=== PATIENT | female | born 1940 | race Caucasian/White ===

== ENCOUNTER 2021-10-08 03:40 | Inpatient (IN) | payer MEDICARE ==
[2021-10-08 04:13] LABS: Basophils % (A) 0 %; Eosinophils % (A) 0 %; HCT 35.4 % (34.0-46.0); Lymphocytes # (A) 0.7 k/uL (1.0-4.8); Lymphocytes % (A) 4 %; MCH 30.5 pg (25.0-35.0); MCV 89.9 fL (80.0-100.0); Mean Platelet Volume 7.5; Monocytes # (A) 0.6 k/uL (0-1.0); Monocytes % (A) 4 %; Neutrophils # (A) 15.5 k/uL (1.3-7.7); Neutrophils % (A) 90 %; Platelet Count 169 k/uL (150-450); RBC 3.94 m/uL (3.80-5.40); WBC 17.2 k/uL (3.8-10.6)
--- NOTE | 2021-10-08 04:19 | ED ---
SOB HPI - General Chief Complaint: Shortness of Breath Stated Complaint: Covid+ Time Seen by Provider: 10/08/21 03:46 Source: patient, EMS Mode of arrival: EMS Limitations: no limitations - History of Present Illness MD Complaint: shortness of breath, cough Onset/Timin -: days(s) Consistency: constant Improves With: nothing Worsens With: lying flat Associated Symptoms: fever, cough, sputum production Treatments Prior to Arrival: none - Related Data Home Oxygen Therapy: No Home Medications Medication Instructions Recorded Confirmed Ascorbic Acid [Vitamin C] 500 mg PO DAILY 10/08/21 10/08/21 Ascorbic Acid/Elderberry Fruit 1 tab PO DAILY 10/08/21 10/08/21 [Elderberry-Vit C 50-100 mg Chw] Aspirin EC [Ecotrin Low Dose] 81 mg PO DAILY 10/08/21 10/08/21 Calcium Carbonate [Calcium] 600 mg PO DAILY 10/08/21 10/08/21 Cholecalciferol [Vitamin D3 (25 25 mcg PO DAILY 10/08/21 10/08/21 Mcg = 1000 Iu)] Cranberry Fruit Extract [Cranberry] 500 mg PO DAILY 10/08/21 10/08/21 Cyanocobalamin (Vitamin B-12) 1,000 mcg PO DAILY 10/08/21 10/08/21 [Vitamin B-12] Furosemide [Lasix] 20 mg PO SUMOTUTHSA 10/08/21 10/08/21 Furosemide [Lasix] 40 mg PO WEFR 10/08/21 10/08/21 L.acidoph,Paracasei, B.lactis 1 cap PO DAILY 10/08/21 10/08/21 [Probiotic] Levothyroxine Sodium [Synthroid] 125 mcg PO DAILY 10/08/21 10/08/21 Lisinopril [Prinivil] 10 mg PO DAILY 10/08/21 10/08/21 Magnesium 200 mg PO DAILY 10/08/21 10/08/21 Melatonin 3 mg PO HS 10/08/21 10/08/21 Metoprolol Succinate (ER) [Toprol 25 mg PO DAILY 10/08/21 10/08/21 XL] Mometasone/Formoterol [Dulera 100 2 puff PO RT-BID 10/08/21 10/08/21 Mcg-5 Mcg Inhaler] Multivitamin [Multivitamins Adult 1 tab PO DAILY 10/08/21 10/08/21 Gummies] [place]-3 Fatty Acids/Fish Oil [Fish 1 cap PO DAILY 10/08/21 10/08/21 Oil 1,000 mg Softgel] Omeprazole 20 mg PO DAILY 10/08/21 10/08/21 Turmeric Root Extract [Turmeric] 500 mg PO DAILY 10/08/21 10/08/21 Ubidecarenone [Co Q-10] 100 mg PO DAILY 10/08/21 10/08/21 Vitamin E 400 unit PO DAILY 10/08/21 10/08/21 Previous Rx's Medication Instructions Recorded Albuterol Inhaler [Ventolin Hfa 2 puff INHALATION RT-QID #1 gm 10/12/21 Inhaler] Levofloxacin [Levaquin] 750 mg PO Q24H #5 tab 10/12/21 Zinc Sulfate [Orazinc] 220 mg PO DAILY #15 cap 10/12/21 dexAMETHasone ORAL [Hexadrol] 6 mg PO DAILY #6 tab 10/12/21 Allergies Allergy/AdvReac Type Severity Reaction Status Date / Time clotrimazole Allergy Swelling Verified 10/08/21 07:52 Review of Systems ROS Statement: Those systems with pertinent positive or pertinent negative responses have been documented in the HPI. ROS Other: All systems not noted in ROS Statement are negative. Constitutional: Reports: fever, chills Respiratory: Reports: cough, dyspnea. Denies: hemoptysis Cardiovascular: Reports: edema. 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 Absent: scleral icterus, conjunctival injection Neck exam: Present: normal inspection Respiratory exam: Present: rhonchi. Absent: respiratory distress, wheezes, rales, stridor Cardiovascular Exam: Present: regular rate, normal rhythm, systolic murmur. Absent: diastolic murmur, rubs, gallop GI/Abdominal exam: Present: soft. Absent: distended, tenderness, guarding, rebound, rigid, mass Extremities exam: Present: normal inspection, normal capillary refill. Absent: pedal edema, calf tenderness Back exam: Present: normal inspection Neurological exam: Present: alert Skin exam: Present: warm, dry, intact, normal color. Absent: rash Course Vital Signs 10/08/21 10/08/21 10/08/21 03:41 04:00 05:00 Temperature 98.7 F Pulse Rate 97 87 89 Respiratory 20 22 20 Rate Blood Pressure 146/84 130/89 124/62 O2 Sat by Pulse 97 96 96 Oximetry 10/08/21 10/08/21 10/08/21 06:00 07:57 09:33 Temperature Pulse Rate 88 114 H Respiratory 22 18 Rate Blood Pressure 144/72 123/68 O2 Sat by Pulse 99 99 87 L Oximetry 10/08/21 10/08/21 10/08/21 09:34 12:23 14:26 Temperature 97.9 F 97.9 F Pulse Rate 88 88 Respiratory 18 18 Rate Blood Pressure 133/74 133/74 O2 Sat by Pulse 97 97 97 Oximetry Medical Decision Making - Lab Data Result diagrams: 10/12/21 06:29 10/12/21 06:29 Lab Results 10/08/21 10/08/21 10/08/21 Range/Units 04:03 04:03 04:03 WBC 17.2 H (3.8-10.6) k/uL RBC 3.94 (3.80-5.40) m/uL Hgb 12.0 (11.4-16.0) gm/dL Hct 35.4 (34.0-46.0) % MCV 89.9 (80.0-100.0) fL MCH 30.5 (25.0-35.0) pg MCHC 34.0 (31.0-37.0) g/dL RDW 14.0 (11.5-15.5) % Plt Count 169 (150-450) k/uL MPV 7.5 Neutrophils % 90 % Lymphocytes % 4 % Monocytes % 4 % Eosinophils % 0 % Basophils % 0 % Neutrophils # 15.5 H (1.3-7.7) k/uL Lymphocytes # 0.7 L (1.0-4.8) k/uL Monocytes # 0.6 (0-1.0) k/uL Eosinophils # 0.0 (0-0.7) k/uL Basophils # 0.0 (0-0.2) k/uL PT 10.0 (9.0-12.0) sec INR 0.9 (<1.2) APTT 27.4 (22.0-30.0) sec D-Dimer 0.79 H (<0.60) mg/L FEU Sodium 128 L (137-145) mmol/L Potassium 4.0 (3.5-5.1) mmol/L Chloride 92 L (98-107) mmol/L Carbon Dioxide 26 (22-30) mmol/L Anion Gap 10 mmol/L BUN 13 (7-17) mg/dL Creatinine 0.79 (0.52-1.04) mg/dL Est GFR (CKD-EPI)AfAm 81 (>60 ml/min/1.73 sqM) Est GFR (CKD-EPI)NonAf 70 (>60 ml/min/1.73 sqM) Glucose 132 H (74-99) mg/dL Plasma Lactic Acid Oscar (0.7-2.0) mmol/L Calcium 8.1 L (8.4-10.2) mg/dL Total Bilirubin 0.4 (0.2-1.3) mg/dL AST 35 (14-36) U/L ALT 26 (4-34) U/L Alkaline Phosphatase 163 H (38-126) U/L Troponin I (0.000-0.034) ng/mL Total Protein 6.5 (6.3-8.2) g/dL Albumin 3.7 (3.5-5.0) g/dL Procalcitonin (0.02-0.09) ng/mL 10/08/21 10/08/21 10/08/21 Range/Units 04:03 04:03 04:03 WBC (3.8-10.6) k/uL RBC (3.80-5.40) m/uL Hgb (11.4-16.0) gm/dL Hct (34.0-46.0) % MCV (80.0-100.0) fL MCH (25.0-35.0) pg MCHC (31.0-37.0) g/dL RDW (11.5-15.5) % Plt Count (150-450) k/uL MPV Neutrophils % % Lymphocytes % % Monocytes % % Eosinophils % % Basophils % % Neutrophils # (1.3-7.7) k/uL Lymphocytes # (1.0-4.8) k/uL Monocytes # (0-1.0) k/uL Eosinophils # (0-0.7) k/uL Basophils # (0-0.2) k/uL PT (9.0-12.0) sec INR (<1.2) APTT (22.0-30.0) sec D-Dimer (<0.60) mg/L FEU Sodium (137-145) mmol/L Potassium (3.5-5.1) mmol/L Chloride (98-107) mmol/L Carbon Dioxide (22-30) mmol/L Anion Gap mmol/L BUN (7-17) mg/dL Creatinine (0.52-1.04) mg/dL Est GFR (CKD-EPI)AfAm (>60 ml/min/1.73 sqM) Est GFR (CKD-EPI)NonAf (>60 ml/min/1.73 sqM) Glucose (74-99) mg/dL Plasma Lactic Acid Oscar 1.2 (0.7-2.0) mmol/L Calcium (8.4-10.2) mg/dL Total Bilirubin (0.2-1.3) mg/dL AST (14-36) U/L ALT (4-34) U/L Alkaline Phosphatase (38-126) U/L Troponin I <0.012 (0.000-0.034) ng/mL Total Protein (6.3-8.2) g/dL Albumin (3.5-5.0) g/dL Procalcitonin 0.83 H (0.02-0.09) ng/mL - EKG Data -: EKG Interpreted by Or EKG shows normal: sinus rhythm (Rate 95 bpm), axis (Normal), intervals (Normal), QRS complexes (Normal), ST-T waves (Normal) Rate: normal Disposition Clinical Impression: Pneumonia due to COVID-19 virus, Hyponatremia Disposition: ADMITTED IP TO THIS HOSP Condition: Fair Is patient prescribed a controlled substance at d/c from ED?: No
--- NOTE | 2021-10-08 04:21 | XR ---
EXAMINATION TYPE: XR chest 1V portable DATE OF EXAM: 10/08/2021 COMPARISON: NONE HISTORY: Short of breath TECHNIQUE: Single view FINDINGS: There is some coarse interstitial infiltrate in both lung [place] predominantly in the perih ilar region. There is right central venous catheter with tip in the superior vena cava. There is mild blunting right costophrenic angle. IMPRESSION: Bilateral perihilar pulmonary infiltrates. No heart failure. There is probably some pulmo nary fibrosis. Acute pneumonia left lower lobe is possible.
[2021-10-08 04:24] LABS: Albumin 3.7 g/dL (3.5-5.0); Calcium 8.1 mg/dL (8.4-10.2); Total Bilirubin 0.4 mg/dL (0.2-1.3); Total Protein 6.5 g/dL (6.3-8.2)
[2021-10-08 04:38] LABS: INR 0.9 (<1.2); Partial Thromboplastin Time 27.4 sec (22.0-30.0)
[2021-10-08] MEDS ORDERED: ALBUTEROL NEBULIZED 2.5 MG/3 ML INHALATION PRN (05:01)
[2021-10-08] MEDS ORDERED: PNEUMONIA PROTOCOL UTILIZED 1 EACH MISC PO PRN (05:01)
[2021-10-08] MEDS: SODIUM CHLORIDE 0.9% 1,000 ML IV SCH (05:30)
[2021-10-08] MEDS ORDERED: dexAMETHasone 2 MG TAB PO STA (05:53)
[2021-10-08] MEDS: ALBUTEROL HFA INHALER INHALATION SCH ×4 (07:53→19:39)
[2021-10-08] MEDS ORDERED: HEPARIN SODIUM,PORCINE/PF 5,000 UNIT/0.5 ML SYRINGE SQ SCH (09:00)
--- NOTE | 2021-10-08 09:53 | P.CNPUL ---
History of Present Illness Consult date: 10/08/21 Requesting physician: Tessie Sams Reason for consult: pneumonia Chief complaint: Shortness of breath and cough History of present illness: This is an 81-year-old female with history of multiple medical problems including bronchogenic carcinoma, previous lobectomy done in over 3 years ago at [facility], history of thyroid cancer, patient is not vaccinated against COVID-19 infection, patient presented to the ER with 8 days history of cough, nasal congestion, no sore throat, no nausea no vomiting no abdominal pain no diarrhea. Patient seen in the ER chest x-ray showed potential or possible perihilar infiltrates with underlying interstitial lung disease, her initial O2 saturation upon arrival was 87%, however later on her O2 sat should was noted to be in the low 90s on room air. Patient was given remdesivir, placed on the COVID-19 cocktail/protocol, admitted and this consult was initiated. Review of Systems Constitutional: Reports: fever, chills Respiratory: Reports: cough, dyspnea. Denies: hemoptysis Cardiovascular: Reports: edema. 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, thyroid cancer history History of Any Multi-Drug Resistant Organisms: None Reported Past Surgical History: Joint Replacement Past Psychological History: No Psychological Hx Reported Smoking Status: Never smoker Past Alcohol Use History: None Reported Past Drug Use History: None Reported Medications and Allergies Home Medications Medication Instructions Recorded Confirmed Type Ascorbic Acid [Vitamin C] 500 mg PO DAILY 10/08/21 10/08/21 History Ascorbic Acid/Elderberry Fruit 1 tab PO DAILY 10/08/21 10/08/21 History [Elderberry-Vit C 50-100 mg [facility]] Aspirin EC [Ecotrin Low Dose] 81 mg PO DAILY 10/08/21 10/08/21 History Calcium Carbonate [Calcium] 600 mg PO DAILY 10/08/21 10/08/21 History Cholecalciferol [Vitamin D3 (25 25 mcg PO DAILY 10/08/21 10/08/21 History Mcg = 1000 Iu)] Cranberry Fruit Extract [Cranberry] 500 mg PO DAILY 10/08/21 10/08/21 History Cyanocobalamin (Vitamin B-12) 1,000 mcg PO DAILY 10/08/21 10/08/21 History [Vitamin B-12] Furosemide [Lasix] 20 mg PO SUMOTUTHSA 10/08/21 10/08/21 History Furosemide [Lasix] 40 mg PO WEFR 10/08/21 10/08/21 History L.acidoph,Paracasei, B.lactis 1 cap PO DAILY 10/08/21 10/08/21 History [Probiotic] Levothyroxine Sodium [Synthroid] 125 mcg PO DAILY 10/08/21 10/08/21 History Lisinopril [Prinivil] 10 mg PO DAILY 10/08/21 10/08/21 History Magnesium 200 mg PO DAILY 10/08/21 10/08/21 History Melatonin 3 mg PO HS 10/08/21 10/08/21 History Metoprolol Succinate (ER) [Toprol 25 mg PO DAILY 10/08/21 10/08/21 History Xl] Mometasone/Formoterol [Dulera 100 2 puff PO RT-BID 10/08/21 10/08/21 History Mcg-5 Mcg Inhaler] Multivitamin [Multivitamins Adult 1 tab PO DAILY 10/08/21 10/08/21 History Gummies] [place]-3 Fatty Acids/Fish Oil [Fish 1 cap PO DAILY 10/08/21 10/08/21 History Oil 1,000 mg Softgel] Omeprazole 20 mg PO DAILY 10/08/21 10/08/21 History Turmeric Root Extract [Turmeric] 500 mg PO DAILY 10/08/21 10/08/21 History Ubidecarenone [Co Q-10] 100 mg PO DAILY 10/08/21 10/08/21 History Vitamin E 400 unit PO DAILY 10/08/21 10/08/21 History Zinc 50 mg PO DAILY 10/08/21 10/08/21 History Allergies Allergy/AdvReac Type Severity Reaction Status Date / Time clotrimazole Allergy Swelling Verified 10/08/21 07:52 Physical Exam Vitals: Vital Signs Temp Pulse Resp BP Pulse Ox 10/08/21 09:34 97 10/08/21 09:33 114 H 18 123/68 87 L 10/08/21 07:57 99 10/08/21 06:00 88 22 144/72 99 10/08/21 05:00 89 20 124/62 96 10/08/21 04:00 87 22 130/89 96 10/08/21 03:41 98.7 F 97 20 146/84 97 Intake and Output 10/07/21 10/08/21 10/08/21 22:59 06:59 14:59 Other: Weight 86.183 kg General appearance: Revealed an 81-year-old female in no distress. Head exam: atraumatic, normocephalic Eye exam:normal appearance. Absent: scleral icterus, conjunctival injection Neck exam: No neck masses no JVD no stridor. Respiratory exam: The medical chest expansion, crackles at the bases. Cardiovascular Exam: Normal S1 and S2, no S3 gallop. No murmur. GI/Abdominal exam: Soft nontender no megaly no rebound no guarding. Extremities exam: No clubbing edema or cyanosis. Back exam: Present: normal inspection Neurological exam: Oriented 3 no gross focal deficits. Skin exam: No rashes noted Results - Laboratory Findings CBC and BMP: 10/08/21 04:03 10/08/21 04:03 PT/INR, D-dimer PT 10.0 sec (9.0-12.0) 10/08/21 04:03 INR 0.9 (<1.2) 10/08/21 04:03 D-Dimer 0.79 mg/L FEU (<0.60) H 10/08/21 04:03 Abnormal lab findings: Abnormal Labs 10/08/21 10/08/21 10/08/21 04:03 04:03 04:03 WBC 17.2 H Neutrophils # 15.5 H Lymphocytes # 0.7 L D-Dimer 0.79 H Sodium 128 L Chloride 92 L Glucose 132 H Calcium 8.1 L Alkaline Phosphatase 163 H Procalcitonin 10/08/21 04:03 WBC Neutrophils # Lymphocytes # D-Dimer Sodium Chloride Glucose Calcium Alkaline Phosphatase Procalcitonin 0.83 H - Diagnostic Findings Chest x-ray: image reviewed (As noted in HPI.) Assessment and Plan Assessment: Impression: Acute hypoxic respiratory failure secondary to COVID-19 pneumonia Hypovolemic hyponatremia Leukocytosis exact etiology is not clear. However the patient has elevated pro calcitonin and I will empirically start the patient on antibiotics. Underlying bacterial infection/pneumonia is not entirely ruled out. History of bronchogenic carcinoma History of degenerative joint disease. Recommendation: Oxygen and titrate accordingly. Droplet isolation. Continue present supportive care measures. Start patient on remdesivir Empiric antibiotics in the form of Rocephin 1 g every 24 hours. Daily check of inflammatory markers We'll continue to follow. Time with Patient: Greater than 30
[2021-10-08] MEDS: dexAMETHasone 2 MG TAB PO SCH (10:21)
[2021-10-08] MEDS: CHOLECALCIFEROL 125 MCG (5000 IU) TABLET PO SCH (10:22)
[2021-10-08] MEDS ORDERED: REMDESIVIR 200 MG in SODIUM CHLORIDE 0.9% 250 ML IVPB ONE (12:00)
[2021-10-08] MEDS ORDERED: ACETAMINOPHEN TAB 500 MG TAB PO PRN (15:43)
[2021-10-08] MEDS ORDERED: HYDROcodone/APAP 5-325MG 1 EACH TAB PO PRN (15:43)
[2021-10-08] MEDS ORDERED: ALPRAZolam 0.25 MG TAB PO PRN (15:43)
[2021-10-08] MEDS: FUROSEMIDE 20 MG TAB PO SCH (16:10)
[2021-10-08] MEDS: ZINC SULFATE 220 MG CAP PO SCH (16:10)
[2021-10-08] MEDS: ENOXAPARIN 40 MG/0.4 ML SYRINGE SQ SCH (16:11)
--- NOTE | 2021-10-08 16:58 | CT ---
EXAMINATION TYPE: CT angio chest DATE OF EXAM: 10/08/2021 COMPARISON: None HISTORY: PE. Covid + Pt not able to follow breathing commands CT DLP: 486.6 mGycm Automated exposure control for dose reduction was used. CONTRAST: Performed with IV Contrast, patient injected with 100 mL of Isovue 370. Images obtained from the thoracic inlet to the diaphragm with IV contrast. There are 3-D post process ed images. There is patchy bilateral pulmonary airspace infiltrates. This is more in the left lower lobe and sup erior segment right lower lobe. There is no mediastinal adenopathy. There are no hilar masses. There is normal contrast opacification of the pulmonary arteries. There are no filling defects. Thoracic ao rta is intact. There is no aneurysm or dissection. There is some spurring in the thoracic spine. There is no thoracic compression fracture. Sternum is intact. Upper abdominal soft tissues are intact . IMPRESSION: No evidence of pulmonary embolism. Patchy bilateral pulmonary infiltrates consistent with pneumonia.
--- NOTE | 2021-10-08 17:17 | HP ---
HISTORY AND PHYSICAL DATE OF SERVICE: 10/08/2021 CHIEF COMPLAINT: Shortness of breath. HISTORY OF PRESENT ILLNESS: This 81-year-old woman with a past medical history of hypertension, history of tumor removed the left lung, history of thyroid cancer, history of joint replacement, being followed by Dr. Santiago in the outpatient setting, was not feeling well over the past several days. The patient has not taken a COVID vaccine. The patient apparently had contact with a COVID infection in her roommate. The patient was symptomatic for the last 8 days with cough, sputum and some nasal congestion. The pulse ox was found to be low at 87% on room air and she had to have supplemental oxygen. Initially the monoclonal antibody was contemplated, but apparently the patient does not meet criteria, so Dr. Virk saw the patient and remdesivir was initiated. A chest x-ray was done in the ER which I reviewed personally. It showed evidence of bilateral pneumonia and some atelectasis on the on the right side, possibly secondary to chronic changes because of the surgery as well. The patient was admitted for further evaluation and treatment. There is no history of any fever, rigors or chills at this time. Labs show that white count is elevated, sodium is 128. Procalcitonin is also elevated. The patient also has hyponatremia; sodium 128. D-dimer was elevated at 0.79. PAST MEDICAL HISTORY: History of lung cancer with surgery, resection, thyroid cancer, history of hypertension, knee replacement, DJD. HOME MEDICATIONS: Zinc, vitamin E, coenzyme Q, turmeric, fish oil, multivitamin, Dulera, Toprol-XL, melatonin, magnesium, Prinivil, Synthroid, probiotic, Lasix, vitamin B12, cranberry, calcium. Doses and other medications also noted. ALLERGIES: CLOTRIMAZOLE. FAMILY HISTORY: No history of heart disease or strokes in the family. SOCIAL HISTORY: No history of smoking. No history of alcohol intake. REVIEW OF SYSTEMS: ENT: No diminished hearing. No diminished vision. CARDIOVASCULAR SYSTEM: As mentioned earlier. RESPIRATORY SYSTEM: As mentioned earlier. GI: No nausea, vomiting, diarrhea. : No dysuria. NERVOUS SYSTEM: No numbness, weakness. ALLERGY/IMMUNOLOGY: No asthma or hay fever. MUSCULOSKELETAL: As mentioned earlier. HEMATOLOGY/ONCOLOGY: As mentioned earlier. ENDOCRINE: As mentioned earlier. CONSTITUTIONAL: As mentioned earlier. DERMATOLOGY: Negative. RHEUMATOLOGY: Negative. PSYCHIATRY: As mentioned earlier. PHYSICAL EXAMINATION: Alert and oriented x3. Pulse 88, blood pressure 130/74, respiration 18, temperature 97.9, pulse ox 97% on room air; 87% on room air was the initial baseline. HEENT: Conjunctivae normal. Oral mucosa moist. NECK: No jugular venous distention. No carotid bruit. No lymph node enlargement. CARDIOVASCULAR: S1, S2 muffled. RESPIRATION: Breath sounds diminished at the bases. A few scattered rhonchi and crackles. ABDOMEN: Soft, nontender. No mass palpable. LEGS: No edema. No swelling. NERVOUS SYSTEM: Higher functions as mentioned earlier. Moves all 4 limbs. No focal motor or sensory deficit. LYMPHATICS: No lymph node palpable in neck, axillae or groin. SKIN: No ulcer, rash, bleeding. JOINTS: No active deforming arthropathy. LABS: WBC 17.2, hemoglobin 12, sodium 128, creatinine is 4. D-dimer is 0.79, glucose 132. ASSESSMENT: 1. Acute COVID-19 infection with acute COVID-19 bilateral interstitial pneumonia with acute hypoxic respiratory failure, present on admission. 2. Possible acute bronchitis. 3. Increased white count. 4. Elevated D-dimer at 0.79. 5. Hyponatremia. 6. Increased random glucose. 7. Elevated alkaline phosphatase. 8. Elevated procalcitonin. 9. History of right upper lobe bronchogenic cancer, status post lobectomy 3 years ago at [facility]. 10.Hypertension. 11.History of thyroid cancer. 12.History of degenerative joint disease. 13.Right total knee joint replacement. 14.Obesity with body mass index of 33.7. 15.FULL CODE. RECOMMENDATIONS AND DISCUSSION: In this 81-year-old woman who presented with multiple complex medical issues, we will monitor the patient closely, continue the current medications, continue symptomatic treatment. Otherwise at this time I recommend remdesivir. I would also recommend a short course of antibiotics and IV steroids and Lovenox. Also recommend a CT angio of the chest and bronchodilators. Overall prognosis is guarded because of multiple complex medical issues. Would also recommend the usual treatment of COVID-19. Further recommendations to follow. A copy of this dictation is being forwarded to Dr. Santiago, who is the primary physician. MMODL / IJN: [id number] /
[2021-10-08] MEDS: MELATONIN 3 MG TABLET PO SCH (22:33)
[2021-10-08] MEDS: TEMAZEPAM 15 MG CAP PO PRN (22:34)
[2021-10-09] MEDS: SODIUM CHLORIDE 0.9% 1,000 ML IV SCH ×2 (06:09→22:54)
[2021-10-09] MEDS: SYMBICORT 80-4.5 MCG INHALER INHALATION SCH ×3 (06:09→22:53)
[2021-10-09] MEDS: ALBUTEROL HFA INHALER INHALATION SCH ×4 (07:07→19:11)
[2021-10-09] MEDS: METOPROLOL SUCCINATE (ER) 25 MG TAB.ER.24H PO SCH (09:25)
[2021-10-09] MEDS: ENOXAPARIN 40 MG/0.4 ML SYRINGE SQ SCH (09:25)
[2021-10-09] MEDS: CALCIUM CARBONATE 500 MG CHEWABLE PO SCH (09:26)
[2021-10-09] MEDS: MULTIVITAMINS, THERA 1 EACH TAB PO SCH (09:26)
[2021-10-09] MEDS: CHOLECALCIFEROL 125 MCG (5000 IU) TABLET PO SCH (09:26)
[2021-10-09] MEDS: ASPIRIN 81 MG PO SCH (09:26)
[2021-10-09] MEDS: PANTOPRAZOLE 40 MG TABLET PO SCH (09:26)
[2021-10-09] MEDS: CYANOCOBALAMIN 500 MCG TAB PO SCH (09:26)
[2021-10-09] MEDS: VITAMIN E (DL,TOCOPHERYL ACET) 400 UNIT (180 MG) CAP PO SCH (09:27)
[2021-10-09] MEDS: MAGNESIUM OXIDE 400 MG TAB PO SCH (09:27)
[2021-10-09] MEDS: lisinopriL 10 MG TAB PO SCH (09:28)
[2021-10-09] MEDS: ZINC SULFATE 220 MG CAP PO SCH (09:29)
[2021-10-09] MEDS: ASCORBIC ACID 500 MG TAB PO SCH (09:29)
[2021-10-09] MEDS: AZITHROMYCIN 500 MG TAB PO SCH (09:29)
[2021-10-09] MEDS: LEVOTHYROXINE 125 MCG TAB PO SCH (09:29)
[2021-10-09] MEDS: FUROSEMIDE 20 MG TAB PO SCH (09:29)
[2021-10-09] MEDS: LACTOBACILLUS ACIDOPH & BULGAR 1 EACH PACKET PO SCH (09:29)
[2021-10-09] MEDS: dexAMETHasone 2 MG TAB PO SCH (09:34)
[2021-10-09] MEDS: REMDESIVIR 100 MG in SODIUM CHLORIDE 0.9% 250 ML IVPB SCH (11:38)
--- NOTE | 2021-10-09 15:04 | P.PN ---
Subjective Progress Note Date: 10/09/21 Principal diagnosis: CoVID 19 pneumonia This is an 81-year-old female with history of multiple medical problems including bronchogenic carcinoma, previous lobectomy done in over 3 years ago at [facility], history of thyroid cancer, patient is not vaccinated against COVID-19 infection, patient presented to the ER with 8 days history of cough, nasal congestion, no sore throat, no nausea no vomiting no abdominal pain no diarrhea. Patient seen in the ER chest x-ray showed potential or possible perihilar infiltrates with underlying interstitial lung disease, her initial O2 saturation upon arrival was 87%, however later on her O2 sat should was noted to be in the low 90s on room air. Patient was given remdesivir, placed on the COVID-19 cocktail/protocol, admitted and this consult was initiated. The patient is seen today 10/09/2021 in follow-up on the regular medical floor. She is currently sitting up at the bedside. Awake and alert in no acute distress. Denies any worsening shortness of breath, cough or congestion. She is maintaining O2 saturations in the high 90s on 2 L/m per nasal cannula. CT angiogram ruled out pulmonary embolism. There is evidence of patchy bilateral pulmonary infiltrates consistent with COVID-19 pneumonia. No new labs today. This is day #2 of Remdesivir. Remains on Decadron, Lovenox, vitamin supplements. She is on antibiotics in form of ceftriaxone and azithromycin. Pro calcitonin 0.83. Objective - Vital Signs Vital signs: Vital Signs Temp 97.6 F 10/09/21 10:00 Pulse 89 10/09/21 10:00 Resp 16 10/09/21 10:00 BP 133/70 10/09/21 10:00 Pulse Ox 99 10/09/21 10:00 Intake & Output 10/08/21 10/09/21 10/09/21 18:59 06:59 18:59 Intake Total 50 480 Balance 50 480 Weight 86.183 kg Intake: Intake, IV Titration 50 Amount cefTRIAXone 1 gm In 50 Sodium Chloride 0.9% 50 ml @ 100 mls/hr IVPB Q24HR [facility] Rx#:[id number] Oral 480 - Exam GENERAL EXAM: Alert, pleasant 80-year-old female patient, on 2 L nasal cannula comfortable in no apparent distress. HEAD: Normocephalic. EYES: Normal reaction of pupils, equal size. NOSE: Clear with pink turbinates. THROAT: No erythema or exudates. NECK: No masses, no JVD. CHEST: No chest wall deformity. LUNGS: Equal air entry with crackles in the bilateral bases. CVS: S1 and S2 normal with no audible murmur, regular rhythm. ABDOMEN: No hepatosplenomegaly, normal bowel sounds, no guarding or rigidity. SPINE: No scoliosis or deformity SKIN: No rashes CENTRAL NERVOUS SYSTEM: No focal deficits, tone is normal in all 4 extremities. EXTREMITIES: There is no peripheral edema. No clubbing, no cyanosis. Peripheral pulses are intact. - Labs CBC & Chem 7: 10/08/21 04:03 10/08/21 04:03 Labs: Microbiology - Last 24 Hours (Table) 10/08/21 05:16 Blood Culture Gram Stain - Preliminary Blood Blood Culture - Preliminary Staphylococcus epidermidis 10/08/21 05:00 Blood Culture - Preliminary Blood No Growth after 24 hours 10/08/21 05:16 Blood Culture - Final Blood Assessment and Plan Assessment: 1 Acute hypoxemic respiratory failure secondary to acute COVID-19 pneumonia. Not vaccinated. Initiated on Remdesivir. 2 Elevated pro calcitonin with possible underlying bacterial pneumonia as well 3 Hyponatremia suspect hypovlemia 4 History of bronchogenic carcinoma with previous lobectomy over 3 years ago at [facility] 5 Hypothyroidism 6 Hypertension Plan: The patient was seen and evaluated by Dr. Virk Continue Remdesivir, Decadron, Lovenox, vitamin supplements Titrate down the FiO2 as tolerated Possible discharge in the a.m. We will continue to follow I, the cosigning physician, performed a history & physical examination of the patient. Lungs sounds with crackles in the bilateral bases. Maintaining good O2 saturations in the 90s on 2 L/m per nasal cannula. I discussed the assessment and plan of care with my nurse practitioner, Annabel Aguilar. I attest to the above note as dictated by her.
--- NOTE | 2021-10-09 19:29 | PN ---
PROGRESS NOTE DATE OF SERVICE: 10/09/2021 This 80-year-old woman who was admitted with acute Covid 19 Covid 19 and bilateral interstitial pneumonia is being closely monitored. Dr. Virk is following the patient closely. The patient has some mild hypoxia. The patient was started on Remdesivir also. No chest pain. No palpitation. CT angio of the chest which I reviewed personally showed no evidence of any pulmonary embolism, but however, showed bilateral interstitial pneumonia highly suggestive of Covid 19 pneumonia. Mostly predominant in both lower lobes. PAST MEDICAL HISTORY: Reviewed. REVIEW OF SYSTEMS: Cardiovascular: No angina. Respiratory: As mentioned. GI as mentioned earlier. : No dysuria. Nervous system: No numbness, weakness. CURRENT MEDICATIONS: Reviewed and include: Tylenol, [place], Ventolin. Xanax, vitamin C, aspirin, Zithromax, doses reviewed. PHYSICAL EXAMINATION: Patient is alert, oriented times three. Pulse 80, blood pressure 132/80, respiration 18, temperature 98.2, pulse ox 98% on room air. HEENT: Conjunctivae normal. NECK: No JVD. CARDIOVASCULAR: S1, S2 muffled. RESPIRATORY: Breath sounds diminished in the bases. A few scattered rhonchi. ABDOMEN: Soft. Nontender. NERVOUS SYSTEM: No focal deficits. LABORATORY DATA: Microbiology blood cultures, Staph epidermidis. Otherwise other labs are WBC 17.2, sodium 130, potassium 4. Procalcitonin 0.83. ASSESSMENT: 1. Acute Covid 19 infection with acute Covid 19interstitial pneumonia with acute hypoxic respiratory failure present on admission. 2. Possible acute bronchitis suppurative .. 3. Elevated procalcitonin and elevated WBC. 4. Elevated D-dimer at 0.79. 5. Hyponatremia. 6. Increased random glucose. 7. Elevated alkaline phosphatase. 8. Elevated procalcitonin. 9. History of right upper lobe bronchogenic cancer, status post lobectomy 3 years ago at [facility]. 10.Hypertension. 11.History of thyroid cancer. 12.History of degenerative joint disease. 13.Right total knee replacement. 14.Obesity with body mass index of 33.7. 15.FULL CODE. RECOMMENDATIONS AND DISCUSSION: Recommend to continue current medications, continue to monitor, symptomatic treatment. Otherwise, at this time, I recommend continue with Remdesivir, continue bronchodilators. Continue empiric antibiotics. We will repeat cultures and repeat the labs. Closely follow with Dr. Virk. Guarded prognosis. Further recommendations to follow. MMODL / IJN: [id number] / MARCK
[2021-10-09] MEDS: MELATONIN 3 MG TABLET PO SCH (21:56)
[2021-10-09] MEDS: TEMAZEPAM 15 MG CAP PO PRN (22:00)
[2021-10-10] MEDS ORDERED: BENZOCAINE/MENTHOL LOZENG 1 EACH LOZENGE MUCOUS MEM PRN (06:14)
--- NOTE | 2021-10-10 07:49 | XR ---
EXAMINATION TYPE: XR chest 1V portable DATE OF EXAM: 10/10/2021 Comparison: 10/08/2021 Clinical History: 81-year-old female CoVID pneumonia Findings: Right anterior chest wall injection port with catheter tip at the lower SVC. Calcified lower right pa ratracheal lymph node and right hilar lymph nodes. Surgical change at the right hilum with architectu ral distortion. Focal airspace opacity at the left lower lung persists. 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 Impression: Postsurgical changes right hilum and evidence of prior granulomatous disease. Continued left lower sunil ng pneumonia.
[2021-10-10] MEDS: ALBUTEROL HFA INHALER INHALATION SCH ×4 (08:25→21:07)
[2021-10-10] MEDS: FUROSEMIDE 20 MG TAB PO SCH (08:29)
[2021-10-10] MEDS: ASCORBIC ACID 500 MG TAB PO SCH (08:29)
[2021-10-10] MEDS: METOPROLOL SUCCINATE (ER) 25 MG TAB.ER.24H PO SCH (08:29)
[2021-10-10] MEDS: LACTOBACILLUS ACIDOPH & BULGAR 1 EACH PACKET PO SCH (08:29)
[2021-10-10] MEDS: ASPIRIN 81 MG PO SCH (08:29)
[2021-10-10] MEDS: LEVOTHYROXINE 125 MCG TAB PO SCH (08:30)
[2021-10-10] MEDS: CALCIUM CARBONATE 500 MG CHEWABLE PO SCH (08:30)
[2021-10-10] MEDS: AZITHROMYCIN 500 MG TAB PO SCH (08:30)
[2021-10-10] MEDS: CYANOCOBALAMIN 500 MCG TAB PO SCH (08:30)
[2021-10-10] MEDS: MAGNESIUM OXIDE 400 MG TAB PO SCH (08:30)
[2021-10-10] MEDS: VITAMIN E (DL,TOCOPHERYL ACET) 400 UNIT (180 MG) CAP PO SCH (08:30)
[2021-10-10] MEDS: CHOLECALCIFEROL 125 MCG (5000 IU) TABLET PO SCH (08:30)
[2021-10-10] MEDS: ZINC SULFATE 220 MG CAP PO SCH (08:30)
[2021-10-10] MEDS: PANTOPRAZOLE 40 MG TABLET PO SCH (08:30)
[2021-10-10] MEDS: dexAMETHasone 2 MG TAB PO SCH (08:30)
[2021-10-10] MEDS: lisinopriL 10 MG TAB PO SCH (08:30)
[2021-10-10] MEDS: MULTIVITAMINS, THERA 1 EACH TAB PO SCH (08:31)
[2021-10-10] MEDS: ENOXAPARIN 40 MG/0.4 ML SYRINGE SQ SCH (08:31)
[2021-10-10 09:33] LABS: Basophils % (A) 0 %; Eosinophils % (A) 0 %; HCT 37.4 % (34.0-46.0); HGB 12.2 gm/dL (11.4-16.0); Lymphocytes % (A) 8 %; MCH 30.5 pg (25.0-35.0); MCHC 32.7 g/dL (31.0-37.0); MCV 93.2 fL (80.0-100.0); Mean Platelet Volume 7.4; Monocytes # (A) 0.3 k/uL (0-1.0); Monocytes % (A) 3 %; Neutrophils # (A) 10.7 k/uL (1.3-7.7); Neutrophils % (A) 86 %; Platelet Count 260 k/uL (150-450); RBC 4.01 m/uL (3.80-5.40); WBC 12.4 k/uL (3.8-10.6)
[2021-10-10 10:42] LABS: Chloride 98 mmol/L (98-107)
[2021-10-10 10:46] LABS: ALT 20 U/L (4-34); AST 24 U/L (14-36); African American GFR (CKD) >90 (>60 ml/min/1.73 sqM); Albumin 3.5 g/dL (3.5-5.0); Albumin/Globulin Ratio 1.1; Alkaline Phosphatase 137 U/L (38-126); Anion Gap 8 mmol/L; Blood Urea Nitrogen 23 mg/dL (7-17); Calcium 8.5 mg/dL (8.4-10.2); Carbon Dioxide 28 mmol/L (22-30); Globulin 3.1 g/dL; Glucose 96 mg/dL (74-99); LDH 588 U/L (313-618); Non-African American GFR(CKD) 78 (>60 ml/min/1.73 sqM); Potassium 4.4 mmol/L (3.5-5.1); Sodium 134 mmol/L (137-145); Total Bilirubin 0.3 mg/dL (0.2-1.3); Total Protein 6.6 g/dL (6.3-8.2)
[2021-10-10 11:09] LABS: C Reactive Protein 15.5 mg/dL (<1.0)
[2021-10-10] MEDS: REMDESIVIR 100 MG in SODIUM CHLORIDE 0.9% 250 ML IVPB SCH (12:04)
--- NOTE | 2021-10-10 13:46 | P.PN ---
Subjective Progress Note Date: 10/10/21 Principal diagnosis: Shortness of breath, cough This is an 81-year-old female with history of multiple medical problems including bronchogenic carcinoma, previous lobectomy done in over 3 years ago at [facility], history of thyroid cancer, patient is not vaccinated agai nst COVID-19 infection, patient presented to the ER with 8 days history of cough, nasal congestion, no sore throat, no nausea no vomiting no abdominal pain no diarrhea. Patient seen in the ER chest x-ray showed potential or possible perihilar infiltrates with underlying interstitial lung disease, her initial O2 saturation upon arrival was 87%, however later on her O2 sat should was noted to be in the low 90s on room air. Patient was given remdesivir, placed on the COVID-19 cocktail/protocol, admitted and this consult was initiated. The patient is seen today 10/09/2021 in follow-up on the regular medical floor. She is currently sitting up at the bedside. Awake and alert in no acute distr ess. Denies any worsening shortness of breath, cough or congestion. She is maintaining O2 saturations in the high 90s on 2 L/m per nasal cannula. CT angiogram ruled out pulmonary embolism. There is evidence of patchy bilateral pulmonary infiltrates consistent with COVID-19 pneumonia. No new labs today. This is day #2 of Remdesivir. Remains on Decadron, Lovenox, vitamin supplements. She is on antibiotics in form of ceftriaxone and azithromycin. Pro calcitonin 0.83. On 10/10/2021 patient seen in follow-up for medical surgical floor, she is resting comfortably in bed, she is on room air pulse ox is 98%, afebrile, she does still cough, at times she is able to bring up some phlegm. She was started on Remdesivir, and today is day 2 of treatment. He remains on Decadron, she has had no fever or chills, no complaints of chest discomfort, breathing comfortably. Patient is on Rocephin for empiric antibiotic coverage, today's labs have been reviewed, white blood cell count is improving, is down to 12.4, hemoglobin is 12.2, serum sodium is improved and is up to 134, the rest electrol ytes were unremarkable, B1 is 23 creatinine 0.72. CRP was 15.5, and LDH was within normal limits at 588, troponin was negative at less than 0.012, and Pro calcitonin level on admission was elevated at 0.83, suggesting possibility of underlying bacterial infection possibly pneumonia, CT angiogram of the chest showed no evidence of pulmonary embolism, and patchy bilateral pulmonary infiltrates consistent with pneumonia. Pleural chest x-ray today shows surgical changes in the right hilum and evidence of prior granulomatous disease, and continued left lower lung pneumonia. Objective - Vital Signs Vital signs: Vital Signs Temp 97.9 F 10/10/21 08:00 Pulse 67 10/10/21 08:00 Resp 18 10/10/21 08:00 BP 127/70 10/10/21 08:00 Pulse Ox 98 10/10/21 08:00 Intake & Output 10/09/21 10/10/21 10/10/21 18:59 06:59 18:59 Intake Total 300 960 Balance 300 960 Intake: Intake, IV Titration 300 Amount Remdesivir 100 mg In 250 Sodium Chloride 0.9% 250 ml @ 250 mls/hr IVPB DAILY@1200 [facility] Rx#: [id number] cefTRIAXone 1 gm In 50 Sodium Chloride 0.9% 50 ml @ 100 mls/hr IVPB Q24HR [facility] Rx#:[id number] Oral 960 - Exam GENERAL EXAM: Alert, very pleasant, 81-year-old white female, on room air pulse ox of 98% comfortable in no apparent distress. HEAD: Normocephalic/atraumatic. EYES: Normal reaction of pupils, equal size. Conjunctiva pink, sclera white. NOSE: Clear with pink turbinates. THROAT: No erythema or exudates. NECK: No masses, no JVD, no thyroid enlargement, no adenopathy. CHEST: No chest wall deformity. Symmetrical expansion. LUNGS: Equal air entry with no crackles, wheeze, rhonchi or dullness. CVS: Regular rate and rhythm, normal S1 and S2, no gallops, no murmurs, no rubs ABDOMEN: Soft, nontender. No hepatosplenomegaly, normal bowel sounds, no guarding or rigidity. EXTREMITIES: No clubbing, no edema, no cyanosis, 2+ pulses and upper and lower extremities. MUSCULOSKELETAL: Muscle strength and tone normal. SPINE: No scoliosis or deformity SKIN: No rashes CENTRAL NERVOUS SYSTEM: Alert and oriented -3. No focal deficits, tone is normal in all 4 extremities. PSYCHIATRIC: Alert and oriented -3. Appropriate affect. Intact judgment and insight. - Labs CBC & Chem 7: 10/10/21 08:53 10/10/21 08:53 Labs: Abnormal Lab Results - Last 24 Hours (Table) 10/10/21 10/10/21 Range/Units 08:53 08:53 WBC 12.4 H (3.8-10.6) k/uL Neutrophils # 10.7 H (1.3-7.7) k/uL Sodium 134 L (137-145) mmol/L BUN 23 H (7-17) mg/dL Alkaline Phosphatase 137 H (38-126) U/L C-Reactive Protein 15.5 H (<1.0) mg/dL Microbiology - Last 24 Hours (Table) 10/08/21 05:00 Blood Culture - Preliminary Blood No Growth after 48 hours 10/08/21 05:16 Blood Culture Gram Stain - Preliminary Blood Blood Culture - Preliminary Staphylococcus epidermidis Assessment and Plan Plan: Assessment: #1. Acute hypoxic respiratory failure multifactorial, related to community acquired pneumonia, and acute COVID-19 infection. Patient is not vaccinated against COVID-19, was initiated on Remdesivir on 10/09/2021, however she is on room air, with stable oxygen sats, and Remdesivir will be discontinued on 10/10/2021 and patient will be placed on Levaquin for acute left lower lung pneumonia #2. Elevated d-dimer, with no CT angiogram evidence of pulmonary embolism #3. Hyponatremia, possibly related to viral pneumonia and hypovolemia and dehydration, improved #4. History of bronchogenic carcinoma with previous history of lobectomy done 3 years ago at [facility] #5. History of thyroid cancer #6. Hypothyroidism #7. Hypertension Plan: We'll discontinue Remdesivir We will discontinue Rocephin and will add Levaquin 750 mg daily for left lower lobe pneumonia, we will try to collect a sputum specimen Continue Decadron, continue vitamins continue prophylactic Lovenox We'll continue to follow her clinical course I performed a history & physical examination of the patient and discussed their management with my nurse practitioner, Kathya Alston. I reviewed the nurse pr actitioner's note and agree with the documented findings and plan of care. Lung sounds are positive for diminished breath sounds throughout the lung [place]. The findings and the impression was discussed with the patient. I attest to the documentation by the nurse practitioner. Time with Patient: Less than 30
[2021-10-10] MEDS: LEVOFLOXACIN 750MG-D5W PMX 750 MG in DEXTROSE/WATER 1 150ML.BAG IVPB SCH (14:41)
--- NOTE | 2021-10-10 16:21 | PN ---
PROGRESS NOTE DATE OF SERVICE: 10/10/2021 This 81-year-old woman who was admitted with acute Covid 19 infection with Covid 19 interstitial pneumonia is being closely monitored. Patient also had received Remdesivir. No chest pain. No palpitations. No fever. The most recent chest x-ray which was done today which was reviewed personally by me showed significant bilateral pneumonia, some atelectasis also. Dr. Hawley is following the patient. EXAM: Alert and oriented times three. Pulse 67. Blood pressure 120/77. Respirations 18, temperature 97.7, pulse ox 98% on room air. HEENT: Conjunctivae normal. Neck: No JVD. Cardiovascular: S1, S2 muffled. Respirations: Breath sounds diminished in the bases. A few scattered rhonchi and crackles. Abdomen: Soft, nontender. Legs: No edema. No swelling. Nervous system: Higher functions as mentioned earlier. Moves all four limbs. No focal deficits. Lymphatics: No lymph nodes palpable in the neck, axillae or groin. Skin: No ulcer, no rash and no bleeding. Joints: No active deforming arthropathy. LAB STUDIES: At this time shows WBC 12.4, sodium 134. ASSESSMENT: 1. Acute Covid 19 infection with acute Covid 19 interstitial pneumonia with acute hypoxic respiratory failure present on admission. 2. Possible acute bronchitis, super added. 3. Elevated procalcitonin with elevated WBC. 4. Elevated D-dimer 0.79. 5. Hyponatremia. 6. Increased random glucose. 7. Elevated alkaline phosphatase. 8. Elevated procalcitonin. 9. History of right upper lung bronchogenic cancer, status post lobectomy 3 years ago at [facility]. 10.Hypertension. 11.History of thyroid cancer. 12.History of degenerative joint disease. 13.Right total knee arthroplasty. 14.Obesity with body mass index 32.7. 15.FULL CODE. RECOMMENDATIONS AND DISCUSSION: Continue medications, management and symptomatic treatment. Repeat labs. Otherwise, continue the rest of medications. Closely follow with Pulmonary. Guarded prognosis. Further recommendations to follow. MMODL / IJN: [id number] /
[2021-10-10] MEDS: SYMBICORT 80-4.5 MCG INHALER INHALATION SCH ×2 (20:00→20:53)
[2021-10-10] MEDS: MELATONIN 3 MG TABLET PO SCH (20:54)
[2021-10-10] MEDS: TEMAZEPAM 15 MG CAP PO PRN (21:29)
[2021-10-11] MEDS: SODIUM CHLORIDE 0.9% 1,000 ML IV SCH (05:12)
[2021-10-11] MEDS: MAGNESIUM OXIDE 400 MG TAB PO SCH (08:39)
[2021-10-11] MEDS: ENOXAPARIN 40 MG/0.4 ML SYRINGE SQ SCH (08:39)
[2021-10-11] MEDS: ASCORBIC ACID 500 MG TAB PO SCH (08:39)
[2021-10-11] MEDS: dexAMETHasone 2 MG TAB PO SCH (08:39)
[2021-10-11] MEDS: METOPROLOL SUCCINATE (ER) 25 MG TAB.ER.24H PO SCH (08:40)
[2021-10-11] MEDS: LEVOTHYROXINE 125 MCG TAB PO SCH (08:40)
[2021-10-11] MEDS: VITAMIN E (DL,TOCOPHERYL ACET) 400 UNIT (180 MG) CAP PO SCH (08:40)
[2021-10-11] MEDS: lisinopriL 10 MG TAB PO SCH (08:40)
[2021-10-11] MEDS: CYANOCOBALAMIN 500 MCG TAB PO SCH (08:40)
[2021-10-11] MEDS: CHOLECALCIFEROL 125 MCG (5000 IU) TABLET PO SCH (08:40)
[2021-10-11] MEDS: ASPIRIN 81 MG PO SCH (08:40)
[2021-10-11] MEDS: PANTOPRAZOLE 40 MG TABLET PO SCH (08:40)
[2021-10-11] MEDS: FUROSEMIDE 20 MG TAB PO SCH (08:40)
[2021-10-11] MEDS: MULTIVITAMINS, THERA 1 EACH TAB PO SCH (08:40)
[2021-10-11] MEDS: CALCIUM CARBONATE 500 MG CHEWABLE PO SCH (08:41)
[2021-10-11] MEDS: LACTOBACILLUS ACIDOPH & BULGAR 1 EACH PACKET PO SCH (08:41)
[2021-10-11] MEDS: ZINC SULFATE 220 MG CAP PO SCH (08:41)
[2021-10-11] MEDS: ALBUTEROL HFA INHALER INHALATION SCH ×4 (08:57→22:06)
[2021-10-11] MEDS: LEVOFLOXACIN 750MG-D5W PMX 750 MG in DEXTROSE/WATER 1 150ML.BAG IVPB SCH (13:39)
--- NOTE | 2021-10-11 14:43 | XR ---
EXAMINATION TYPE: XR chest 1V portable DATE OF EXAM: 10/11/2021 HISTORY: Shortness of breath. COMPARISON: 10/10/2021 TECHNIQUE: Single view of the chest is submitted. FINDINGS: Demonstrated are scattered senescent parenchymal change. Patchy density left lung base persists although slightly improved. Postoperative change about the rig ht hilar and right suprahilar regions. MediPort catheter is unchanged. The heart is stable. Hilar and mediastinal structures are within normal limits. Degenerative changes are seen of the dorsal spine. IMPRESSION: 1. Patchy density left lung base persists although slightly improved.
--- NOTE | 2021-10-11 16:01 | P.PN ---
Subjective Progress Note Date: 10/11/21 Principal diagnosis: Shortness of breath, cough This is an 81-year-old female with history of multiple medical problems including bronchogenic carcinoma, previous lobectomy done in over 3 years ago at [facility], history of thyroid cancer, patient is not vaccinated agai nst COVID-19 infection, patient presented to the ER with 8 days history of cough, nasal congestion, no sore throat, no nausea no vomiting no abdominal pain no diarrhea. Patient seen in the ER chest x-ray showed potential or possible perihilar infiltrates with underlying interstitial lung disease, her initial O2 saturation upon arrival was 87%, however later on her O2 sat should was noted to be in the low 90s on room air. Patient was given remdesivir, placed on the COVID-19 cocktail/protocol, admitted and this consult was initiated. The patient is seen today 10/09/2021 in follow-up on the regular medical floor. She is currently sitting up at the bedside. Awake and alert in no acute distr ess. Denies any worsening shortness of breath, cough or congestion. She is maintaining O2 saturations in the high 90s on 2 L/m per nasal cannula. CT angiogram ruled out pulmonary embolism. There is evidence of patchy bilateral pulmonary infiltrates consistent with COVID-19 pneumonia. No new labs today. This is day #2 of Remdesivir. Remains on Decadron, Lovenox, vitamin supplements. She is on antibiotics in form of ceftriaxone and azithromycin. Pro calcitonin 0.83. On 10/10/2021 patient seen in follow-up for medical surgical floor, she is resting comfortably in bed, she is on room air pulse ox is 98%, afebrile, she does still cough, at times she is able to bring up some phlegm. She was started on Remdesivir, and today is day 2 of treatment. He remains on Decadron, she has had no fever or chills, no complaints of chest discomfort, breathing comfortably. Patient is on Rocephin for empiric antibiotic coverage, today's labs have been reviewed, white blood cell count is improving, is down to 12.4, hemoglobin is 12.2, serum sodium is improved and is up to 134, the rest electrol ytes were unremarkable, B1 is 23 creatinine 0.72. CRP was 15.5, and LDH was within normal limits at 588, troponin was negative at less than 0.012, and Pro calcitonin level on admission was elevated at 0.83, suggesting possibility of underlying bacterial infection possibly pneumonia, CT angiogram of the chest showed no evidence of pulmonary embolism, and patchy bilateral pulmonary infiltrates consistent with pneumonia. Pleural chest x-ray today shows surgical changes in the right hilum and evidence of prior granulomatous disease, and continued left lower lung pneumonia. On 10/11/2021 and is seen in follow-up on medical surgical floor. Room air pulse ox is 98%, patient is afebrile, hemodynamically she's been stable, denies any worsening dyspnea, she has a cough, at times she is able to bring up some phlegm, no chest discomfort, no fever or chills. She was started on Levaquin for empiric antibiotic coverage and possibility of left lower lung pneumonia. Sputum culture was sent showing few PMNs, many gram-positive cocci, many gram- negative bacilli, rare budding yeast. Blood culture showed Staphylococcus epidermidis and coagulase-negative staph. Legionella urine antigen was negat dianna. Repeat chest x-rays pending. Objective - Vital Signs Vital signs: Vital Signs Temp 98.1 F 10/11/21 14:00 Pulse 80 10/11/21 14:00 Resp 18 10/11/21 14:00 BP 136/86 10/11/21 14:00 Pulse Ox 99 10/11/21 14:00 Intake & Output 10/10/21 10/11/21 10/11/21 18:59 06:59 18:59 Intake Total 930 240 Balance 930 240 Intake: Intake, IV Titration 450 Amount Remdesivir 100 mg In 250 Sodium Chloride 0.9% 250 ml @ 250 mls/hr IVPB DAILY@1200 [facility] Rx#: [id number] Sodium Chloride 0.9% 1, 200 000 ml @ 20 mls/hr IV . Q24H [facility] Rx#:[id number] Oral 480 240 Other: Voiding Method Toilet Toilet # Voids 2 # Bowel Movements 1 - Exam GENERAL EXAM: Alert, very pleasant, 81-year-old white female, on room air pulse ox of 98% comfortable in no apparent distress. HEAD: Normocephalic/atraumatic. EYES: Normal reaction of pupils, equal size. Conjunctiva pink, sclera white. NOSE: Clear with pink turbinates. THROAT: No erythema or exudates. NECK: No masses, no JVD, no thyroid enlargement, no adenopathy. CHEST: No chest wall deformity. Symmetrical expansion. LUNGS: Equal air entry with no crackles, wheeze, rhonchi or dullness. CVS: Regular rate and rhythm, normal S1 and S2, no gallops, no murmurs, no rubs ABDOMEN: Soft, nontender. No hepatosplenomegaly, normal bowel sounds, no guarding or rigidity. EXTREMITIES: No clubbing, no edema, no cyanosis, 2+ pulses and upper and lower extremities. MUSCULOSKELETAL: Muscle strength and tone normal. SPINE: No scoliosis or deformity SKIN: No rashes CENTRAL NERVOUS SYSTEM: Alert and oriented -3. No focal deficits, tone is norm al in all 4 extremities. PSYCHIATRIC: Alert and oriented -3. Appropriate affect. Intact judgment and insight. - Labs CBC & Chem 7: 10/10/21 08:53 10/10/21 08:53 Labs: Abnormal Lab Results - Last 24 Hours (Table) 10/10/21 Range/Units 08:53 D-Dimer 0.85 H (<0.60) mg/L FEU Microbiology - Last 24 Hours (Table) 10/08/21 05:16 Blood Culture Gram Stain - Final Blood Blood Culture - Final Staphylococcus epidermidis Coagulase Negative Staph 10/08/21 05:00 Blood Culture - Preliminary Blood No Growth after 72 hours 10/10/21 12:02 Gram Stain - Preliminary Sputum Sputum Culture - Preliminary 10/09/21 18:45 Blood Culture - Preliminary Blood No Growth after 24 hours Assessment and Plan Plan: Assessment: #1. Acute hypoxic respiratory failure multifactorial, related to community acquired pneumonia, and acute COVID-19 infection. Patient is not vaccinated against COVID-19, was initiated on Remdesivir on 10/09/2021, however she is on room air, with stable oxygen sats, and Remdesivir will be discontinued on 10/10/2021 and patient will be placed on Levaquin for acute left lower lung pneumonia #2. Elevated d-dimer, with no CT angiogram evidence of pulmonary embolism #3. Hyponatremia, possibly related to viral pneumonia and hypovolemia and dehydration, improved #4. History of bronchogenic carcinoma with previous history of lobectomy done 3 years ago at [facility] #5. History of thyroid cancer #6. Hypothyroidism #7. Hypertension Plan: Continue current medical treatment Continue Levaquin Clinically she is stable, no worsening dyspnea Increase activity as tolerated Obtain follow-up chest x-ray If remmains stable may consider discharge home on oral antibiotics in am I performed a history & physical examination of the patient and discussed their management with my nurse practitioner, Kathya Alston. I reviewed the nurse practitioner's note and agree with the documented findings and plan of care. Lung sounds are positive for diminished breath sounds throughout the lung [place]. The findings and the impression was discussed with the patient. I attest to the documentation by the nurse practitioner. Time with Patient: Less than 30
--- NOTE | 2021-10-11 17:24 | PN ---
PROGRESS NOTE DATE OF SERVICE: 10/11/2021 This 81-year-old woman who was admitted with acute COVID-19 infection with acute COVID- 19 interstitial pneumonia is being closely monitored at this time. Pulmonary is following the patient closely. The most recent chest x-ray which was reviewed personally by me showed bilateral infiltrates. No chest pain. No palpitations. No fever. PHYSICAL EXAMINATION: Alert, oriented x3. Pulse 80, blood pressure 136/83, respiration 18, temperature 98.2, pulse ox 99% on room air. HEENT: Conjunctivae normal. NECK: No jugular venous distention. CARDIOVASCULAR: S1, S2 muffled. RESPIRATION: Breath sounds diminished at the bases. A few scattered rhonchi. ABDOMEN: Soft. NERVOUS SYSTEM: No focal deficit. LABS: Sodium 134, WBC 12.4. Other labs are noted. ASSESSMENT: 1. Acute COVID-19 infection with acute COVID-19 interstitial pneumonia with acute hypoxic respiratory failure, present on admission. 2. Possible acute bronchitis, superadded. 3. Elevated procalcitonin with elevated white count. 4. Elevated D-dimer at 0.79. 5. Hyponatremia. 6. Increased random glucose. 7. Elevated alkaline phosphatase. 8. Elevated procalcitonin. 9. History of right upper lobe bronchogenic cancer, status post lobectomy 3 years ago at [facility]. 10.Hypertension. 11.History of thyroid cancer. 12.History of degenerative joint disease. 13.Right total knee arthroplasty. 14.Obesity with body mass index of 32.7. 15.FULL CODE. RECOMMENDATIONS AND DISCUSSION: I recommend to continue current medications, continue with symptomatic treatment. Continue with the bronchodilators. Continue with the antibiotics. Repeat labs. Otherwise, closely follow with Dr. Santiago after discharge. Further recommendations to follow. MMODL / IJN: [id number] /
[2021-10-11] MEDS: SYMBICORT 80-4.5 MCG INHALER INHALATION SCH ×2 (20:00→21:45)
[2021-10-11] MEDS: MELATONIN 3 MG TABLET PO SCH (21:45)
[2021-10-11] MEDS: TEMAZEPAM 15 MG CAP PO PRN (21:45)
[2021-10-12] MEDS: SODIUM CHLORIDE 0.9% 1,000 ML IV SCH (04:38)
[2021-10-12] MEDS: ALBUTEROL HFA INHALER INHALATION SCH ×3 (07:15→15:24)
[2021-10-12] MEDS: MAGNESIUM OXIDE 400 MG TAB PO SCH (09:18)
[2021-10-12] MEDS: ASCORBIC ACID 500 MG TAB PO SCH (09:18)
[2021-10-12] MEDS: LACTOBACILLUS ACIDOPH & BULGAR 1 EACH PACKET PO SCH (09:18)
[2021-10-12] MEDS: ENOXAPARIN 40 MG/0.4 ML SYRINGE SQ SCH (09:18)
[2021-10-12] MEDS: dexAMETHasone 2 MG TAB PO SCH (09:18)
[2021-10-12] MEDS: PANTOPRAZOLE 40 MG TABLET PO SCH (09:19)
[2021-10-12] MEDS: ASPIRIN 81 MG PO SCH (09:19)
[2021-10-12] MEDS: FUROSEMIDE 20 MG TAB PO SCH (09:19)
[2021-10-12] MEDS: lisinopriL 10 MG TAB PO SCH (09:19)
[2021-10-12] MEDS: ZINC SULFATE 220 MG CAP PO SCH (09:19)
[2021-10-12] MEDS: CHOLECALCIFEROL 125 MCG (5000 IU) TABLET PO SCH (09:19)
[2021-10-12] MEDS: MULTIVITAMINS, THERA 1 EACH TAB PO SCH (09:19)
[2021-10-12] MEDS: CALCIUM CARBONATE 500 MG CHEWABLE PO SCH (09:19)
[2021-10-12] MEDS: LEVOTHYROXINE 125 MCG TAB PO SCH (09:19)
[2021-10-12] MEDS: METOPROLOL SUCCINATE (ER) 25 MG TAB.ER.24H PO SCH (09:20)
[2021-10-12] MEDS: VITAMIN E (DL,TOCOPHERYL ACET) 400 UNIT (180 MG) CAP PO SCH (09:20)
[2021-10-12] MEDS: CYANOCOBALAMIN 500 MCG TAB PO SCH (09:20)
[2021-10-12 09:27] LABS: Basophils # (A) 0.03 X 10*3/uL (0.00-0.10); Basophils % (A) 0.3 %; Eosinophils # (A) 0 X 10*3/uL (0.04-0.35); Eosinophils % (A) 0 %; HCT 38.8 % (37.2-46.3); HGB 12.5 g/dL (12.0-15.0); Lymphocytes # (A) 1.76 X 10*3/uL (0.90-5.00); Lymphocytes % (A) 19.1 %; MCH 29.8 pg (27.0-32.0); MCHC 32.2 g/dL (32.0-37.0); MCV 92.4 fL (80.0-97.0); Mean Platelet Volume 9.5 fL (9.5-12.2); Monocytes # (A) 0.67 X 10*3/uL (0.20-1.00); Monocytes % (A) 7.3 %; Neutrophils # (A) 6.51 X 10*3/uL (1.80-7.70); Neutrophils % (A) 70.8 %; Platelet Count 282 X 10*3/uL (140-440); RDW 13.6 % (11.5-14.5)
[2021-10-12 10:02] LABS: African American GFR (CKD) 68.5 (60.0-200.0); Anion Gap 11.9 mmol/L (10.00-18.00); BUN/Creat Ratio 26.67 Ratio (12.00-20.00); Carbon Dioxide 28.1 mmol/L (20.0-27.5); Non-African American GFR(CKD) 59.1 (60.0-200.0); Potassium 4.6 mmol/L (3.5-5.5)
[2021-10-12] MEDS ORDERED: LEVOFLOXACIN 750 MG TAB PO SCH (12:00)
[2021-10-12 15:19] VITALS: BP 145/68; PULSE 78; RESP 18; TEMP 97.7
[2021-10-12] MEDS ORDERED: FUROSEMIDE 40 MG TAB PO SCH (15:39)
--- NOTE | 2021-10-12 15:54 | P.PN ---
Subjective Progress Note Date: 10/12/21 Principal diagnosis: CoVID 19 pneumonia This is an 81-year-old female with history of multiple medical problems including bronchogenic carcinoma, previous lobectomy done in over 3 years ago at [facility], history of thyroid cancer, patient is not vaccinated against COVID-19 infection, patient presented to the ER with 8 days history of cough, nasal congestion, no sore throat, no nausea no vomiting no abdominal pain no diarrhea. Patient seen in the ER chest x-ray showed potential or possible perihilar infiltrates with underlying interstitial lung disease, her initial O2 saturation upon arrival was 87%, however later on her O2 sat should was noted to be in the low 90s on room air. Patient was given remdesivir, placed on the COVID-19 cocktail/protocol, admitted and this consult was initiated. The patient is seen today 10/09/2021 in follow-up on the regular medical floor. She is currently sitting up at the bedside. Awake and alert in no acute distress. Denies any worsening shortness of breath, cough or congestion. She is maintaining O2 saturations in the high 90s on 2 L/m per nasal cannula. CT angiogram ruled out pulmonary embolism. There is evidence of patchy bilateral pulmonary infiltrates consistent with COVID-19 pneumonia. No new labs today. This is day #2 of Remdesivir. Remains on Decadron, Lovenox, vitamin supplements. She is on antibiotics in form of ceftriaxone and azithromycin. Pro calcitonin 0.83. On 10/10/2021 patient seen in follow-up for medical surgical floor, she is resting comfortably in bed, she is on room air pulse ox is 98%, afebrile, she does still cough, at times she is able to bring up some phlegm. She was started on Remdesivir, and today is day 2 of treatment. He remains on Decadron, she has had no fever or chills, no complaints of chest discomfort, breathing comfortably. Patient is on Rocephin for empiric antibiotic coverage, today's labs have been reviewed, white blood cell count is improving, is down to 12.4, hemoglobin is 12.2, serum sodium is improved and is up to 134, the rest electrolytes were unremarkable, B1 is 23 creatinine 0.72. CRP was 15.5, and LDH was within normal limits at 588, troponin was negative at less than 0.012, and Pro calcitonin level on admission was elevated at 0.83, suggesting possibility of underlying bacterial infection possibly pneumonia, CT angiogram of the chest showed no evidence of pulmonary embolism, and patchy bilateral pulmonary infiltrates consistent with pneumonia. Pleural chest x-ray today shows surgical changes in the right hilum and evidence of prior granulomatous disease, and continued left lower lung pneumonia. On 10/11/2021 and is seen in follow-up on medical surgical floor. Room air pulse ox is 98%, patient is afebrile, hemodynamically she's been stable, denies any worsening dyspnea, she has a cough, at times she is able to bring up some phlegm, no chest discomfort, no fever or chills. She was started on Levaquin for empiric antibiotic coverage and possibility of left lower lung pneumonia. Sputum culture was sent showing few PMNs, many gram-positive cocci, many gram- negative bacilli, rare budding yeast. Blood culture showed Staphylococcus epidermidis and coagulase-negative staph. Legionella urine antigen was negative. Repeat chest x-rays pending. The patient is seen today 10/12/2021 in follow-up on the regular medical floor. She is currently sitting up in a chair at the bedside. Awake and alert in no acute distress. She is maintaining good O2 saturations in the 90s on room air. X-ray reveals patchy density in the left lung though slightly improved. White count 9.2. Hemoglobin 12.5. Sodium 139. Potassium 4.6. Creatinine 0.9. She remains on Decadron, Lovenox, vitamin supplements. Antibiotics in the form of Levaquin. Objective - Vital Signs Vital signs: Vital Signs Temp 97.7 F 10/12/21 14:00 Pulse 78 10/12/21 14:00 Resp 18 10/12/21 14:00 BP 145/68 10/12/21 14:00 Pulse Ox 97 10/12/21 14:00 Intake & Output 10/11/21 10/12/21 10/12/21 18:59 06:59 18:59 Intake Total 180 Balance 180 Intake: Oral 180 Other: Voiding Method Toilet Toilet Toilet # Voids 1 2 - Exam GENERAL EXAM: Alert, pleasant 80-year-old female patient, on room air, com fortable in no apparent distress. HEAD: Normocephalic. EYES: Normal reaction of pupils, equal size. NOSE: Clear with pink turbinates. THROAT: No erythema or exudates. NECK: No masses, no JVD. CHEST: No chest wall deformity. LUNGS: Equal air entry with crackles in the bilateral bases. CVS: S1 and S2 normal with no audible murmur, regular rhythm. ABDOMEN: No hepatosplenomegaly, normal bowel sounds, no guarding or rigidity. SPINE: No scoliosis or deformity SKIN: No rashes CENTRAL NERVOUS SYSTEM: No focal deficits, tone is normal in all 4 extremities. EXTREMITIES: There is no peripheral edema. No clubbing, no cyanosis. Peripheral pulses are intact. - Labs CBC & Chem 7: 10/12/21 06:29 10/12/21 06:29 Labs: Abnormal Lab Results - Last 24 Hours (Table) 10/12/21 10/12/21 Range/Units 06:29 06:29 Immature Gran # 0.23 H (0.00-0.04) X 10*3/uL Eosinophils # 0 L (0.04-0.35) X 10*3/uL Carbon Dioxide 28.1 H (20.0-27.5) mmol/L Est GFR (CKD-EPI)NonAf 59.1 L (60.0-200.0) BUN/Creatinine Ratio 26.67 H (12.00-20.00) Ratio Microbiology - Last 24 Hours (Table) 10/10/21 12:02 Gram Stain - Final Sputum Sputum Culture - Final Ruthie albicans 10/08/21 05:00 Blood Culture - Preliminary Blood No Growth after 96 hours 10/09/21 18:45 Blood Culture - Preliminary Blood No Growth after 48 hours 10/08/21 05:16 Blood Culture Gram Stain - Final Blood Blood Culture - Final Staphylococcus epidermidis Coagulase Negative Staph Assessment and Plan Assessment: 1 Acute hypoxemic respiratory failure secondary to acute COVID-19 pneumonia. Not vaccinated. Initiated on Remdesivir. 2 Elevated pro calcitonin with possible underlying bacterial pneumonia as well 3 Hyponatremia suspect hypovlemia 4 History of bronchogenic carcinoma with previous lobectomy over 3 years ago at [facility] 5 Hypothyroidism 6 Hypertension Plan: The patient was seen and evaluated by Dr. Chandan Leone and on room air Cleared for discharge from the pulmonary standpoint I, the cosigning physician, performed a history & physical examination of the patient. Lungs sounds with crackles in the bilateral bases. Maintaining good O2 saturations in the 90s on room air. I discussed the assessment and plan of care with my nurse practitioner, Annabel Aguilar. I attest to the above note as dictated by her.
--- NOTE | 2021-10-12 22:41 | DS ---
DISCHARGE SUMMARY DATE OF SERVICE: 10/12/2021 FINAL DIAGNOSES: 1. Acute COVID-19 infection with acute Covid 19 interstitial pneumonia with acute hypoxic respiratory present on admission. 2. Possible acute bronchitis superadded. 3. Elevated procalcitonin with elevated WBC. 4. Elevated D-dimer 3.79. 5. Hyponatremia. 6. Increased random glucose. 7. Elevated alkaline phosphatase. 8. Elevated procalcitonin. 9. History of right upper lobe cancer status post lobectomy 3 years ago at [facility]. 10.Hypertension. 11.History of thyroid cancer. 12.History of degenerative joint disease. 13.Right total knee arthroplasty history. 14.Obesity with body mass index of 38.7. 15.FULL CODE. DISCHARGE DISPOSITION: The patient will be discharged in stable condition with guarded prognosis. HISTORY OF PRESENT ILLNESS: This 81-year-old woman with a past medical history of multiple problems previously followed by Dr. Santiago in the outpatient setting was admitted to the hospital with interstitial pneumonia and acute Covid 19 infection. The patient was treated with antibiotics. Pulmonary saw the patient during the hospitalization. Patient improved significantly. EXAM: Vitals stable. Cardiovascular S1, S2. Abdomen soft. Nervous system: No focal deficits. DISCHARGE ADVICE AND MEDICATIONS: 1. Diet is cardiac diet. 2. Activity limited until follow up. 3. Followup with Dr. Santiago in 2-3 days. 4. Follow up with Dr. Virk as recommended. 5. Calcium carbonate 600 mg p.o. daily. 6. Coenzyme-Q 100 mg p.o. daily. 7. Cranberry daily. 8. Dulera 2 puffs b.i.d. 9. Ecotrin 81 mg p.o. daily. 10.Ascorbic acid 1 tab p.o. daily. 11.[place]-3 fatty acids 1 p.o. daily. 12.Lasix 20 mg Sunday, Sunday, Sunday and 40 mg Sunday, Sunday. 13.Magnesium 200 mg p.o. daily. 14.Melatonin 3 mg q.h.s. 15.Multivitamins 1 p.o. daily. 16.Omeprazole 20 mg p.o. daily. 17.Prinivil 10 mg p.o. daily. 18.Lactobacillus 1 p.o. daily. 19.Levothyroxine 125 mcg p.o. daily. 20.Metoprolol 25 mg p.o. daily. 21.Tumeric root. 22.Vitamin B12 1000 mcg p.o. daily. 23.Vitamin C 500 mg p.o. daily. 24.Vitamin D3 25 mcg p.o. daily. 25.Vitamin E 400 units daily. 26.Dexamethasone 6 mg p.o. daily for 6 days. 27.Levaquin 750 mg p.o. daily for 5 days. 28.Oral zinc 220 mg for 10 days. 29.Ventolin HFA 2 puffs q.i.d. and p.r.n. Once again, the patient will be discharged in stable condition with guarded prognosis. Room air pulse ox after ambulation is also normal. MMODL / IJN: [id number] / MTDCody
[2021-10-13] MEDS ORDERED: LEVOFLOXACIN 750 MG TAB PO SCH (12:00)
== END 2021-10-12 16:41 | disposition home or self-care (01) | DRG 177 ==
LOC: EC 03:40 → 4SSUR 05:01
PROVIDERS: ADMIT Hospitalist; ATTEND Hospitalist
PROC: XW033E5 Introduction of Remdesivir Anti-infective into Peripheral Vein, Percutaneous Approach, New Technology Group 5 (ICD-10-PCS; principal; 2021-10-08)
DX: U07.1 COVID-19 (principal); J12.82 Pneumonia due to coronavirus disease 2019; J96.01 Acute respiratory failure with hypoxia; E87.1 Hypo-osmolality and hyponatremia; E66.9 Obesity, unspecified; J20.9 Acute bronchitis, unspecified; E03.9 Hypothyroidism, unspecified; I10 Essential (primary) hypertension; R74.8 Abnormal levels of other serum enzymes; R79.89 Other specified abnormal findings of blood chemistry; Z96.651 Presence of right artificial knee joint; Z68.38 Body mass index [BMI] 38.0-38.9, adult; Z85.118 Personal history of other malignant neoplasm of bronchus and lung; Z90.2 Acquired absence of lung [part of]; Z79.51 Long term (current) use of inhaled steroids; Z79.82 Long term (current) use of aspirin; Z79.890 Hormone replacement therapy; Z79.899 Other long term (current) drug therapy; Z85.850 Personal history of malignant neoplasm of thyroid
CPT/HCPCS: 36415; 71045; 71275; 80048; 80053; 83605; 83615; 84145; 84484; 85025; 85379; 85610; 85730; 86140; 87040; 87070; 87205; 87449; 93005; 94640; 99285

== ENCOUNTER → 2022-06-08 | Outpatient (CLI) | payer MEDICARE ==
--- NOTE | 2022-06-08 11:32 | XR ---
EXAMINATION TYPE: XR cervical spine comp DATE OF EXAM: 06/08/2022 11:27 AM INDICATION: Patient age:Female; 82 years old; Reason for study: M542 CERVICALGIA; . COMPARISON: None TECHNIQUE: The cervical spine was imaged in 4 projections. Frontal, lateral, odontoid and bilateral o blique. FINDINGS: The osseous structures show normal alignment without evidence of an acute fracture. There are osteoph ytes noted throughout the cervical spine on the anterior and lateral aspects of the vertebral bodies. The intervertebral disk spaces are narrowed at multiple levels. Pedicles are intact. Soft tissues are within normal limits. The odontoid appears intact. Partially visualized chest wall [id number] is present. There is atherosclerosis of the aortic arch. Surgical sutures are seen over the right upp er mediastinum. IMPRESSION: 1. No fracture or dislocation. 2. Moderate degenerative disc disease changes of the cervical spine.
== END | disposition home or self-care (01) ==
LOC: RADXRYALE 11:07
PROVIDERS: ATTEND Internal Medicine
DX: M50.30 Other cervical disc degeneration, unspecified cervical region (principal)
CPT/HCPCS: 72050

== ENCOUNTER → 2022-09-11 | Outpatient (CLI) | payer MEDICARE ==
--- NOTE | 2022-09-11 12:12 | CT ---
EXAMINATION TYPE: CT chest w con DATE OF EXAM: 09/11/2022 COMPARISON: CT angiogram chest 10/08/2021 HISTORY: Non-Small Cell Lung Cancer CT DLP: 378.8 mGycm Automated exposure control for dose reduction was used. CONTRAST: CT scan of the chest is performed with IV Contrast, patient injected with 70 mL of Isovue 300. FINDINGS: LUNGS: Partial pneumonectomy change right upper lobe surgical clips noted in place. No evidence for r ecurrent or residual mass. No evidence for infiltrate. No pleural effusion. MEDIASTINUM: There are no greater than 1 cm hilar or mediastinal lymph nodes. No pericardial effusi on is seen. Thoracic aorta is of normal caliber. The heart is not enlarged. UPPER ABDOMEN: No significant abnormality appreciated. OTHER: No additional significant abnormality is seen. IMPRESSION: Postoperative changes right upper lobe without evidence for recurrent or residual disease.
== END | disposition home or self-care (01) ==
LOC: RADCTMAIN 10:23
PROVIDERS: ATTEND Internal Medicine Critical Care Medicine
DX: C34.90 Malignant neoplasm of unspecified part of unspecified bronchus or lung (principal)
CPT/HCPCS: 82565; 84520; 71260; 36415; Q9967

== ENCOUNTER 2022-11-27 14:49 | Observation (INO) | payer MEDICARE ==
--- NOTE | 2022-11-27 15:16 | ED ---
General Adult HPI - General Source: patient Mode of arrival: ambulatory Limitations: no limitations <Trey Olvera - Last Filed: 11/27/22 15:12> <Antwon Oviedo - Last Filed: 11/27/22 18:45> - General Chief complaint: Chest Pain Stated complaint: Dizziness Time Seen by Provider: 11/27/22 14:58 - History of Present Illness Initial comments: Dictation was produced using [employer]oud[employer] dictation software. please excuse any grammatical, word or spelling errors. Medical screening exam: 82-year-old female presents emergency department for episode of left anterior chest pain with radiation down the left upper extremity. She has been suffering from nausea and vomiting. Reports that her symptoms lasted for several minutes. Patient's well-appearing at the bedside in no acute distress. (Trey Olvera) This is an 82-year-old female presents emergency Department complaining that she had some anterior chest achiness in the left arm achiness lasted approximately an hour and was diaphoretic during this episode. Patient thought initially she was dehydrated and so she began to hydrate and that's when the chest pain began. Patient denies any time that she had a difficulty breathing shortness of breath per patient any fever chills or cough per patient denies abdominal pain patient denies nausea vomiting diarrhea. Patient denies headache per patient denies numbness weakness. Patient states that she no longer is having any symptoms but she was concerned about her heart because of the chest discomfort. (Antwon Oviedo) - Related Data Home Medications Medication Instructions Recorded Confirmed Ascorbic Acid [Vitamin C] 500 mg PO DAILY 10/08/21 11/27/22 Ascorbic Acid/Elderberry Fruit 1 tab PO DAILY 10/08/21 11/27/22 [Elderberry-Vit C 50-100 mg Chw] Aspirin EC [Ecotrin Low Dose] 81 mg PO DAILY 10/08/21 11/27/22 Calcium Carbonate [Calcium] 600 mg PO DAILY 10/08/21 11/27/22 Cholecalciferol [Vitamin D3 (25 25 mcg PO DAILY 10/08/21 11/27/22 Mcg = 1000 Iu)] Cranberry Fruit Extract [Cranberry] 500 mg PO DAILY 10/08/21 11/27/22 Cyanocobalamin (Vitamin B-12) 1,000 mcg PO DAILY 10/08/21 11/27/22 [Vitamin B-12] L.acidoph,Paracasei, B.lactis 1 cap PO DAILY 10/08/21 11/27/22 [Probiotic] Magnesium 200 mg PO DAILY 10/08/21 11/27/22 Melatonin 3 mg PO HS 10/08/21 11/27/22 Oilmont-3 Fatty Acids/Fish Oil [Fish 1 cap PO DAILY 10/08/21 11/27/22 Oil 1,000 mg Softgel] Omeprazole 20 mg PO DAILY 10/08/21 11/27/22 Turmeric Root Extract [Turmeric] 500 mg PO DAILY 10/08/21 11/27/22 Ubidecarenone [Co Q-10] 100 mg PO DAILY 10/08/21 11/27/22 Albuterol Nebulized [Ventolin 2.5 mg INHALATION RT-Q8H PRN 11/27/22 11/27/22 Nebulized] Beet Root 1 tab PO DAILY 11/27/22 11/27/22 Lasix (Unknown) 1 tab PO DIRECTED 11/27/22 11/27/22 Levothyroxine Sodium [Synthroid] 100 mcg PO DAILY 11/27/22 11/27/22 Lisinopril (Unknown) 1 tab PO DAILY 11/27/22 11/27/22 Previous Rx's Medication Instructions Recorded Zinc Sulfate [Orazinc] 220 mg PO DAILY #15 cap 10/12/21 Allergies Allergy/AdvReac Type Severity Reaction Status Date / Time clotrimazole Allergy Swelling Verified 11/27/22 17:45 Review of Systems ROS Other: All systems not noted in ROS Statement are negative. <Trey Olvera - Last Filed: 11/27/22 15:12> ROS Other: All systems not noted in ROS Statement are negative. <Antwon Oviedo - Last Filed: 11/27/22 18:45> ROS Statement: Those systems with pertinent positive or pertinent negative responses have been documented in the HPI. 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, thyroid cancer history History of Any Multi-Drug Resistant Organisms: None Reported Past Surgical History: Joint Replacement Additional Past Surgical History / Comment(s): TRK Past Psychological History: No Psychological Hx Reported Smoking Status: Never smoker Past Alcohol Use History: None Reported Past Drug Use History: None Reported <Trey Olvera - Last Filed: 11/27/22 15:12> General Exam Limitations: no limitations <Trey Olvera - Last Filed: 11/27/22 15:12> <Antwon Oviedo - Last Filed: 11/27/22 18:45> - General Exam Comments Initial Comments: GENERAL: Patient is well-developed and well-nourished. Patient is nontoxic and well- hydrated and is in mild distress. ENT: Neck is soft and supple. No significant lymphadenopathy is noted. Oropharynx is clear. Moist mucous membranes. Neck has full range of motion without eliciting any pain. EYES: The sclera were anicteric and conjunctiva were pink and moist. Extraocular movements were intact and pupils were equal round and reactive to light. Eyelids were unremarkable. PULMONARY: Unlabored respirations. Good breath sounds bilaterally. No audible rales rhonchi or wheezing was noted. CARDIOVASCULAR: There is a regular rate and rhythm without any murmurs gallops or rubs. Femoral pulses are equal bilaterally ABDOMEN: Soft and nontender with normal bowel sounds. No palpable organomegaly was noted. There is no palpable pulsatile mass. SKIN: Skin is clear with no lesions or rashes and otherwise unremarkable. NEUROLOGIC: Patient is alert and oriented x3. Cranial nerves II through XII are grossly intact. Motor and sensory are also intact. Normal speech, volume and content. Symmetrical smile. MUSCULOSKELETAL: Normal extremities with adequate strength and full range of motion. LYMPHATICS: No significant lymphadenopathy is noted PSYCHIATRIC: Normal psychiatric evaluation. (Antwon Oviedo) Course Vital Signs 11/27/22 11/27/22 11/27/22 14:52 16:00 16:30 Temperature 97.9 F Pulse Rate 80 70 70 Respiratory 24 15 22 Rate Blood Pressure 144/58 142/75 123/67 O2 Sat by Pulse 99 99 100 Oximetry 11/27/22 11/27/22 17:00 17:30 Temperature Pulse Rate 71 73 Respiratory 19 18 Rate Blood Pressure 129/70 123/64 O2 Sat by Pulse 100 100 Oximetry Medical Decision Making - Lab Data Result diagrams: 11/27/22 15:54 11/27/22 15:54 <Antwon Oviedo - Last Filed: 11/27/22 18:45> - Medical Decision Making EKG is interpreted by myself. EKG shows a sinus rhythm at 71 bpm VT interval is 105 QRS is 190 QT interval 470 QTC is 4:30 patient's EKG shows no ST segment elevation or depression. Was pt. sent in by a medical professional or institution (, PA, MARKETING AMBASSADOR, urgent care, hospital, or retirement...) When possible be specific @ -No Did you speak to anyone other than the patient for history (EMS, parent, family, police, friend...)? What history was obtained from this source @ -No Did you review nursing and triage notes (agree or disagree)? Why? @ -I reviewed and agree with nursing and triage notes Were old charts reviewed (outside hosp., previous admission, EMS record, old EKG, old radiological studies, urgent care reports/EKG's, retirement records)? Report findings @ -No old charts were reviewed Differential Diagnosis (chest pain, altered mental status, abdominal pain women, abdominal pain men, vaginal bleeding, weakness, fever, dyspnea, syncope, headache, dizziness, GI bleed, back pain, seizure, CVA, palpatations, mental health)? @ -Differential Chest Pain: Stable Angina, Unstable Angina, STEMI, NSTEMI Aortic Dissection, Pneumothorax, Musculoskeletal, Esophageal Spasm GERD, Cholecystitis, Pancreatitis, Zoster, this is not meant to be an all-inclusive list. EKG interpreted by me (3pts min.). @ -As above X-rays interpreted by me (1pt min.). @ -Chest x-ray was read by myself shows no acute abnormality. CT interpreted by me (1pt min.). @ -None done U/S interpreted by me (1pt. min.). @ -None done What testing was considered but not performed or refused? (CT, X-rays, U/S, labs)? Why? @ -None What meds were considered but not given or refused? Why? @ -None Did you discuss the management of the patient with other professionals (professionals i.e. , LAUREN, MARKETING AMBASSADOR, lab, RT, psych nurse, marriage and family social worker, quarter supervisor, teacher, workplace rehabilitation officer, case making machine operator)? Give summary @ -No Was smoking cessation discussed for >3mins.? @ -No Was critical care preformed (if so, how long)? @ -No Were there social determinants of health that impacted care today? How? (Homelessness, low income, unemployed, alcoholism, drug addiction, transportation, low edu. Level, literacy, decrease access to med. care, prison, rehab)? @ -No Was there de-escalation of care discussed even if they declined (Discuss DNR or withdrawal of care, Hospice)? DNR status @ -No What co-morbidities impacted this encounter? (DM, HTN, Smoking, COPD, CAD, Ca ncer, CVA, ARF, Chemo, Hep., AIDS, mental health diagnosis, sleep apnea, morbid obesity)? @ -Hypertension Was patient admitted / discharged? Hospital course, mention meds given and route, prescriptions, significant lab abnormalities, going to OR and other pertinent info. @ -Patient will be admitted for chest pain. Patient came in 3 hours after the chest pain had resolved so she was no longer experiencing any chest pain she was given Nitropaste and aspirin emergency department I spoke with Dr. Sams he agreed to admit the patient I did consult cardiology as well and I continue the Nitropaste and aspirin on the floor. Undiagnosed new problem with uncertain prognosis? @ -No Drug Therapy requiring intensive monitoring for toxicity (Heparin, Nitro, Insulin, Cardizem)? @ -No Were any procedures done? @ -No Diagnosis/symptom? @ -Chest pain Acute, or Chronic, or Acute on Chronic? @ -Acute Uncomplicated (without systemic symptoms) or Complicated (systemic symptoms)? @ -Complicated Side effects of treatment? @ -No Exacerbation, Progression, or Severe Exacerbation? @ -No Poses a threat to life or bodily function? How? (Chest pain, [place], [place], pneumonia, PE, COPD, DKA, ARF, appy, cholecystitis, CVA, Diverticulitis, Homicidal, Suicidal, threat to staff... and all critical care pts) @ -No (Antwon Oviedo) - Lab Data Lab Results 11/27/22 11/27/22 11/27/22 Range/Units 15:54 15:54 15:54 WBC 12.2 H (3.8-10.6) k/uL RBC 3.76 L (3.80-5.40) m/uL Hgb 11.8 (11.4-16.0) gm/dL Hct 34.4 (34.0-46.0) % MCV 91.5 (80.0-100.0) fL MCH 31.3 (25.0-35.0) pg MCHC 34.2 (31.0-37.0) g/dL RDW 13.9 (11.5-15.5) % Plt Count 217 (150-450) k/uL MPV 7.3 Neutrophils % 83 % Lymphocytes % 10 % Monocytes % 4 % Eosinophils % 1 % Basophils % 0 % Neutrophils # 10.1 H (1.3-7.7) k/uL Lymphocytes # 1.2 (1.0-4.8) k/uL Monocytes # 0.4 (0-1.0) k/uL Eosinophils # 0.1 (0-0.7) k/uL Basophils # 0.1 (0-0.2) k/uL PT 9.8 (9.0-12.0) sec INR 0.9 (<1.2) APTT 23.0 (22.0-30.0) sec Sodium 134 L (137-145) mmol/L Potassium 4.6 (3.5-5.1) mmol/L Chloride 99 (98-107) mmol/L Carbon Dioxide 28 (22-30) mmol/L Anion Gap 7 mmol/L BUN 20 H (7-17) mg/dL Creatinine 0.82 (0.52-1.04) mg/dL Est GFR (CKD-EPI)AfAm 76 (>60 ml/min/1.73 sqM) Est GFR (CKD-EPI)NonAf 66 (>60 ml/min/1.73 sqM) Glucose 109 H (74-99) mg/dL Calcium 8.7 (8.4-10.2) mg/dL Total Bilirubin 0.6 (0.2-1.3) mg/dL AST 150 H (14-36) U/L ALT 83 H (4-34) U/L Alkaline Phosphatase 131 H (38-126) U/L Troponin I (0.000-0.034) ng/mL Total Protein 6.7 (6.3-8.2) g/dL Albumin 3.9 (3.5-5.0) g/dL 11/27/22 Range/Units 15:54 WBC (3.8-10.6) k/uL RBC (3.80-5.40) m/uL Hgb (11.4-16.0) gm/dL Hct (34.0-46.0) % MCV (80.0-100.0) fL MCH (25.0-35.0) pg MCHC (31.0-37.0) g/dL RDW (11.5-15.5) % Plt Count (150-450) k/uL MPV Neutrophils % % Lymphocytes % % Monocytes % % Eosinophils % % Basophils % % Neutrophils # (1.3-7.7) k/uL Lymphocytes # (1.0-4.8) k/uL Monocytes # (0-1.0) k/uL Eosinophils # (0-0.7) k/uL Basophils # (0-0.2) k/uL PT (9.0-12.0) sec INR (<1.2) APTT (22.0-30.0) sec Sodium (137-145) mmol/L Potassium (3.5-5.1) mmol/L Chloride (98-107) mmol/L Carbon Dioxide (22-30) mmol/L Anion Gap mmol/L BUN (7-17) mg/dL Creatinine (0.52-1.04) mg/dL Est GFR (CKD-EPI)AfAm (>60 ml/min/1.73 sqM) Est GFR (CKD-EPI)NonAf (>60 ml/min/1.73 sqM) Glucose (74-99) mg/dL Calcium (8.4-10.2) mg/dL Total Bilirubin (0.2-1.3) mg/dL AST (14-36) U/L ALT (4-34) U/L Alkaline Phosphatase (38-126) U/L Troponin I <0.012 (0.000-0.034) ng/mL Total Protein (6.3-8.2) g/dL Albumin (3.5-5.0) g/dL Disposition <Trey Olvera - Last Filed: 11/27/22 15:12> Time of Disposition: 18:44 <Antwon Oviedo - Last Filed: 11/27/22 18:45> Clinical Impression: Chest pain Disposition: ADMITTED IP TO THIS HOSP Referrals: Saritha Santiago MD [Primary Care Provider] - 1-2 days
[2022-11-27] MEDS ORDERED: ASPIRIN 81 MG PO STA (15:28)
[2022-11-27] MEDS ORDERED: NITROGLYCERIN OINT 1 INCH/GM PACKET TOPICAL STA (15:28)
[2022-11-27 16:03] LABS: Basophils # (A) 0.1 k/uL (0-0.2); Basophils % (A) 0 %; Eosinophils # (A) 0.1 k/uL (0-0.7); Eosinophils % (A) 1 %; HCT 34.4 % (34.0-46.0); HGB 11.8 gm/dL (11.4-16.0); Lymphocytes # (A) 1.2 k/uL (1.0-4.8); Lymphocytes % (A) 10 %; MCH 31.3 pg (25.0-35.0); MCHC 34.2 g/dL (31.0-37.0); MCV 91.5 fL (80.0-100.0); Mean Platelet Volume 7.3; Monocytes # (A) 0.4 k/uL (0-1.0); Monocytes % (A) 4 %; Neutrophils # (A) 10.1 k/uL (1.3-7.7); Neutrophils % (A) 83 %; Platelet Count 217 k/uL (150-450); RBC 3.76 m/uL (3.80-5.40); RDW 13.9 % (11.5-15.5); WBC 12.2 k/uL (3.8-10.6)
--- NOTE | 2022-11-27 16:17 | XR ---
EXAMINATION TYPE: XR chest 2V DATE OF EXAM: 11/27/2022 4:05 PM COMPARISON: Chest radiographs from 10/11/2021 TECHNIQUE: XR chest 2V Frontal and lateral views of the chest. CLINICAL INDICATION:Female, 82 years old with history of chest pain; FINDINGS: Lungs/Pleura: There is no evidence of pleural effusion, focal consolidation, or pneumothorax. Surgic al sutures seen projecting over the right upper mediastinum. Pulmonary vascularity: Unremarkable. Heart/mediastinum: Cardiomediastinal silhouette is unremarkable. Musculoskeletal: No acute osseous pathology. Lines/Tubes: [id number] projecting over the right hemithorax with distal tip at the cavoatrial junction. IMPRESSION: No acute cardiopulmonary disease/process.
[2022-11-27 16:18] LABS: INR 0.9 (<1.2); Prothrombin Time 9.8 sec (9.0-12.0)
[2022-11-27 16:28] LABS: Albumin 3.9 g/dL (3.5-5.0); Calcium 8.7 mg/dL (8.4-10.2); Potassium 4.6 mmol/L (3.5-5.1); Total Bilirubin 0.6 mg/dL (0.2-1.3); Total Protein 6.7 g/dL (6.3-8.2)
[2022-11-27] MEDS ORDERED: NITROGLYCERIN SL TABS 0.4 MG TAB SUBLINGUAL PRN (18:49)
[2022-11-27] MEDS: NITROGLYCERIN OINT 1 INCH/GM PACKET TOPICAL SCH (23:53)
[2022-11-28] MEDS: NITROGLYCERIN OINT 1 INCH/GM PACKET TOPICAL SCH (05:33)
[2022-11-28 08:34] VITALS: BP 126/68; PULSE 67; RESP 16; TEMP 97.9
[2022-11-28] MEDS ORDERED: ASPIRIN 325 MG TAB PO SCH (09:00)
[2022-11-28 09:24] LABS: Chol/HDL Ratio 3.75 Ratio; LDL Cholesterol,Calculated 141.2 mg/dL (0.0-131.0)
[2022-11-28 10:51] LABS: Basophils % (A) 1 %; Eosinophils # (A) 0.3 k/uL (0-0.7); Eosinophils % (A) 3 %; HCT 35.7 % (34.0-46.0); HGB 11.7 gm/dL (11.4-16.0); Lymphocytes # (A) 1.3 k/uL (1.0-4.8); Lymphocytes % (A) 16 %; MCH 30.3 pg (25.0-35.0); MCHC 32.8 g/dL (31.0-37.0); MCV 92.3 fL (80.0-100.0); Mean Platelet Volume 7.9; Monocytes # (A) 0.4 k/uL (0-1.0); Monocytes % (A) 4 %; Neutrophils % (A) 74 %; Platelet Count 230 k/uL (150-450); RBC 3.87 m/uL (3.80-5.40); RDW 14.4 % (11.5-15.5)
--- NOTE | 2022-11-28 11:31 | P.CRDCN ---
History of Present Illness Consult date: 11/28/22 Consult reason: chest pain History of present illness: History of present illness: This is an 82-year-old female patient of Dr. Olmstead with past medical history of severe aortic stenosis, hypertension, hyperlipidemia. Patient had a recent appointment with Dr. Olmstead on November 23 and due to progression of aortic stenosis, option of TAVR was discussed and patient wanted to proceed. Patient is scheduled for left and right heart catheterization on December 15 as well as will be scheduled for IVETTE prior to her next office visit. We have been asked to see the patient regarding chest pain. Patient states that she woke up feeling dehydrated yesterday. She was drinking water and then developed left arm achiness and left breast ache. These have subsequently resolved. No abdominal pain, nausea vomiting or diarrhea. No shortness of breath, no cough. Symptoms had resolved prior to arrival to the emergency center. EKG normal sinus rhythm without acute ST changes WBC 12.2, hemoglobin 11.8, platelet count 217. Sodium 134, potassium 4.6, BUN 20 and creatinine 0.82. Troponin negative 3. AST 150, ALT 83, alkaline phosphatase 131. Triglycerides 1:30, cholesterol 228, LDL 141, HDL 60. Chest x-ray reveals no acute cardiopulmonary disease Home cardiac medications: Lasix 20 mg daily, magnesium 200 mg daily also on levothyroxine 100 g daily Echocardiogram 11/06/2022 revealed normal EF, moderate TR, moderate MR, AV peak 98 mmHg, AV mean 44 mmHg. RVSP 51 mmHg Review Of Systems: At the time of my evaluation: Constitutional: No fever, no chills. No weakness, fatigue or lethargy. EENT: No headache. No dizziness. Lungs: No shortness of breath, cough, no sputum production. No wheezing. Cardiovascular: No chest pain, no lower extremity edema. No palpitations. No paroxysmal nocturnal dyspnea. No orthopnea. No lightheadedness or dizziness. No syncopal episodes. Abdominal: No abdominal pain. No nausea, vomiting. No diarrhea. No constipation. No bloody or tarry stools. Genitourinary: No dysuria.. No urinary retention. Musculoskeletal: No myalgias. No muscle weakness, no frequent falls. No back pain. No neck pain. Integumentary: No wounds. No rash. No unusual bruising. Neurologic: No aphasia. No facial droop. No change in mentation. No head injury. No headache. Psychiatric: No depression. No anxiety. Endocrine: No abnormal blood sugars. Physical examination: Gen: This is an 82-year-old female. She is resting in bed and appears to be comfortable and in no acute distress. VS: reviewed HEENT: Head is atraumatic, normocephalic. Pupils equal, round. Sclerae is anicteric. NECK: Supple. No JVD. No lymphadenopathy. No thyromegaly. LUNGS: Clear to auscultation. No wheezes or rhonchi. No intercostal retractions. HEART: Regular rate and rhythm. 3/6 systolic ejection murmur at the base. ABDOMEN: Soft. Bowel sounds are present. No masses. No tenderness. EXTREMITIES: No pedal edema. No calf tenderness. NEUROLOGICAL: Patient is awake, alert and oriented x3. Cranial nerves 2 through 12 are grossly intact. Assessment: Chest pain, acute coronary syndrome ruled out Severe aortic stenosis Hypertension Hyperlipidemia Elevated liver function test Plan: Resume patient's cardiac medications No need to repeat echocardiogram Acute coronary syndrome has been ruled out. Patient has been cleared for discharge with planned follow-up with her scheduled cardiac catheterization on December 15. Thank you kindly for this consultation. Nurse practitioner note has been reviewed, I agree with documented findings and plan of care. Patient was seen and examined. 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, thyroid cancer history History of Any Multi-Drug Resistant Organisms: None Reported Past Surgical History: Joint Replacement Additional Past Surgical History / Comment(s): TRK Past Psychological History: No Psychological Hx Reported Smoking Status: Never smoker Past Alcohol Use History: None Reported Past Drug Use History: None Reported Medications and Allergies Home Medications Medication Instructions Recorded Confirmed Type Ascorbic Acid [Vitamin C] 500 mg PO DAILY 10/08/21 11/27/22 History Ascorbic Acid/Elderberry Fruit 1 tab PO DAILY 10/08/21 11/27/22 History [Elderberry-Vit C 50-100 mg [facility]] Aspirin EC [Ecotrin Low Dose] 81 mg PO DAILY 10/08/21 11/27/22 History Calcium Carbonate [Calcium] 600 mg PO DAILY 10/08/21 11/27/22 History Cholecalciferol [Vitamin D3 (25 25 mcg PO DAILY 10/08/21 11/27/22 History Mcg = 1000 Iu)] Cranberry Fruit Extract [Cranberry] 500 mg PO DAILY 10/08/21 11/27/22 History Cyanocobalamin (Vitamin B-12) 1,000 mcg PO DAILY 10/08/21 11/27/22 History [Vitamin B-12] L.acidoph,Paracasei, B.lactis 1 cap PO DAILY 10/08/21 11/27/22 History [Probiotic] Magnesium 200 mg PO DAILY 10/08/21 11/27/22 History Melatonin 3 mg PO HS 10/08/21 11/27/22 History [place]-3 Fatty Acids/Fish Oil [Fish 1 cap PO DAILY 10/08/21 11/27/22 History Oil 1,000 mg Softgel] Omeprazole 20 mg PO DAILY 10/08/21 11/27/22 History Turmeric Root Extract [Turmeric] 500 mg PO DAILY 10/08/21 11/27/22 History Ubidecarenone [Co Q-10] 100 mg PO DAILY 10/08/21 11/27/22 History Zinc Sulfate [Orazinc] 220 mg PO DAILY #15 cap 10/12/21 11/27/22 Rx Albuterol Nebulized [Ventolin 2.5 mg INHALATION RT-Q8H PRN 11/27/22 11/27/22 History Nebulized] Beet Root 1 tab PO DAILY 11/27/22 11/27/22 History Levothyroxine Sodium [Synthroid] 100 mcg PO DAILY 11/27/22 11/27/22 History Lisinopril (Unknown) 1 tab PO DAILY 11/27/22 11/27/22 History Furosemide [Lasix] 20 mg PO DAILY 11/28/22 11/28/22 History Allergies Allergy/AdvReac Type Severity Reaction Status Date / Time clotrimazole Allergy Swelling Verified 11/27/22 17:45 Physical Exam Vitals: Vital Signs Temp Pulse Pulse Resp BP BP BP 11/28/22 07:00 97.9 F 67 16 126/68 11/28/22 02:26 98.1 F 76 18 121/56 11/27/22 22:05 97.6 F 55 L 17 109/62 11/27/22 20:32 83 14 131/70 11/27/22 18:39 87 15 137/69 11/27/22 17:30 73 18 123/64 11/27/22 17:00 71 19 129/70 11/27/22 16:30 70 22 123/67 11/27/22 16:00 70 15 142/75 11/27/22 14:52 97.9 F 80 24 144/58 Pulse Ox 11/28/22 07:00 97 11/28/22 02:26 97 11/27/22 22:05 96 11/27/22 20:32 99 11/27/22 18:39 99 11/27/22 17:30 100 11/27/22 17:00 100 11/27/22 16:30 100 11/27/22 16:00 99 11/27/22 14:52 99 Intake and Output 11/27/22 11/28/22 11/28/22 22:59 06:59 14:59 Other: Voiding Method Bedside Commode # Voids 1 Weight 79.379 kg Results 11/28/22 06:02 11/27/22 15:54 Cardiac Enzymes 11/27/22 11/27/22 11/27/22 Range/Units 15:54 15:54 19:35 AST 150 H (14-36) U/L Troponin I <0.012 <0.012 (0.000-0.034) ng/mL 11/27/22 Range/Units 21:50 AST (14-36) U/L Troponin I <0.012 (0.000-0.034) ng/mL Coagulation 11/27/22 Range/Units 15:54 PT 9.8 (9.0-12.0) sec APTT 23.0 (22.0-30.0) sec CBC 11/27/22 Range/Units 15:54 WBC 12.2 H (3.8-10.6) k/uL RBC 3.76 L (3.80-5.40) m/uL Hgb 11.8 (11.4-16.0) gm/dL Hct 34.4 (34.0-46.0) % Plt Count 217 (150-450) k/uL Comprehensive Metabolic Panel 11/27/22 Range/Units 15:54 Sodium 134 L (137-145) mmol/L Potassium 4.6 (3.5-5.1) mmol/L Chloride 99 (98-107) mmol/L Carbon Dioxide 28 (22-30) mmol/L BUN 20 H (7-17) mg/dL Creatinine 0.82 (0.52-1.04) mg/dL Glucose 109 H (74-99) mg/dL Calcium 8.7 (8.4-10.2) mg/dL AST 150 H (14-36) U/L ALT 83 H (4-34) U/L Alkaline Phosphatase 131 H (38-126) U/L Total Protein 6.7 (6.3-8.2) g/dL Albumin 3.9 (3.5-5.0) g/dL Current Medications Generic Name Dose Route Start Last Admin Trade Name Freq PRN Reason Stop Dose Admin Aspirin 325 mg 11/28/22 09:00 Aspirin 325 Mg Tab PO DAILY JUDITH Nitroglycerin 0.4 mg 11/27/22 18:49 Nitroglycerin Sl Tabs 0.4 Mg Tab SUBLINGUAL Q5M PRN Chest Pain Nitroglycerin 1 inch 11/28/22 00:00 11/28/22 05:33 Nitroglycerin Oint 1 Inch/Gm Packet TOPICAL Not Given Q6HR JUDITH Intake and Output 11/27/22 11/28/22 11/28/22 22:59 06:59 14:59 Other: Voiding Method Bedside Commode # Voids 1 Weight 79.379 kg 11/27/22 15:54 11/27/22 15:54
--- NOTE | 2022-11-28 14:22 | P.HPIM ---
History of Present Illness H&P Date: 11/28/22 This is a pleasant 82-year-old female who presented to the emergency department with family after having some persistent left-sided chest pain that was radiating down the left arm and reports it lasted about an hour. Patient reported that she had some nausea and vomiting over the last few days and was concerned for dehydration. Patient reports she has been dehydrated before with similar symptoms and when symptoms persisted after hydration patient decided to come to the ER to be evaluated. Patient was admitted with cardiology on consult. Patient denied having any palpitations or shortness of breath associated with this chest pain and again reported it lasted approximately one hour. Patient follows with Dr. Santiago in the outpatient setting with a past medical history of hypertension and thyroid cancer. Patient reports she is scheduled with her primary cardiology Dr. Olmstead for cardiac catheterization and IVETTE to discuss possible TAVR and also scheduled this month for an EGD with GI Dr. Alford as she reports chronic dysphasia. Labs reviewed in the ER showed a WBC of 12.2 although repeats this morning are negative at 8.0, hemoglobin is stable, sodium was 134 with a potassium of 4.6, BUN was 20 with a creatinine of 0.82, liver functions mildly elevated and troponins 3 were negative. Patient did have a cholesterol panel which shows hyperlipidemia and patient reports she takes vitamin supplementation for this. Chest x-ray in the ER showed no acute cardiopulmonary disease or process an EKG showing normal sinus rhythm. Patient was admitted under observation for cardiac evaluation. Patient was continued on telemetry. Review Of Systems: Constitutional: No fever, no chills, no night sweats. No weight change. No weakness, fatigue or lethargy. No daytime sleepiness. EENT: No headache. No blurred vision or double vision, no loss of vision. No loss of Hearing, no ringing in the ears, no dizziness. No nasal drainage or congestion. No epistaxis. No sore throat. Lungs: No shortness of breath, cough, no sputum production. No wheezing. Cardiovascular: Reported chest pain that has resolved, no lower extremity edema. No palpitations. No paroxysmal nocturnal dyspnea. No orthopnea. No lightheadedness or dizziness. No syncopal episodes. Reported left upper ex tremity radiating pain that has resolved Abdominal: No abdominal pain. Reports of intermittent nausea with vomiting for the last few days. No diarrhea. No constipation. No bloody or tarry stools.. No loss of appetite. Genitourinary: No dysuria, increased frequency, urgency. No urinary retention. Musculoskeletal: No myalgias. No muscle weakness, no gait dysfunction, no frequent falls. No back pain. No neck pain. Integumentary: No wounds, no lesions. No rash or pruritus. No unusual brui sing. No change in hair or nails. Neurologic: No aphasia. No facial droop. No change in mentation. No head injury. No headache. No paralysis. No paresthesia. Psychiatric: No depression. No anxiety. No mood swings. Endocrine: No abnormal blood sugars. No weight change. No excessive sweating or thirst. No cold intolerance. PHYSICAL EXAMINATION: GENERAL: The patient is alert and oriented x4, Well developed, well nourished. HEENT: Pupils are round and equally reacting to light. EOMI. no scleral icterus. No conjunctival pallor. Normocephalic, atraumatic. No pharyngeal erythema. No th yromegaly. CARDIOVASCULAR: S1 and S2 muffled PULMONARY: diminished breath sounds bilaterally with no wheezing or rhonchi noted. ABDOMEN: soft. Nontender on exam. obese. non-distended, normoactive bowel sounds. No palpable organomegaly. MUSCULOSKELETAL: No joint swelling or deformity. EXTREMITIES: No cyanosis, clubbing, or pedal edema. NEUROLOGICAL: Gross neurological examination did not reveal any focal deficits. SKIN: No rashes. Assessment: Chest pain, ruled out ACS Severe aortic stenosis, being worked up outpatient scheduled for cardiac catheterization and IVETTE with primary recycling assistant Dr. Olmstead this month Hypertension Hyponatremia, likely due to dehydration as patient had been having some nausea and vomiting Hyperlipidemia Elevated LFTs GI prophylaxis DVT prophylaxis Full code Plan: Recommend to continue with current medications and management and continue telemetry monitoring Cardiology consulted and has evaluated the patient recommending continuing current medications and outpatient follow-up to continue with Dr. Olmstead currently working up progressive aortic stenosis with possible TAVR. Patient is scheduled for cardiac catheterization and IVETTE this month. Patient reports she has an appointment with GI next week for EGD and encourage the patient to keep the appointment Recommend repeat labs to monitor kidney functions along with LFTs and follow-up with primary care provider Patient reports to feeling well and would like to go home. Cardiology has cleared the patient for discharge and patient will be discharged this afternoon. Due to multiple complex medical issues, prognosis is guarded The impression and plan of care has been dictated by Susan Ortiz, nurse practitioner as directed. Dr. Tabby MD I have performed a history and examination and MDM of this patient, discussed the same with the dictator, and agree with the dictator's assessment and plan as written ,documented as a scribe. Based on total visit time, I have performed more than 50% of the visit. Any additional findings or plans will be noted. 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, thyr oid cancer history History of Any Multi-Drug Resistant Organisms: None Reported Past Surgical History: Joint Replacement Additional Past Surgical History / Comment(s): TRK Past Psychological History: No Psychological Hx Reported Smoking Status: Never smoker Past Alcohol Use History: None Reported Past Drug Use History: None Reported Medications and Allergies Home Medications Medication Instructions Recorded Confirmed Type Ascorbic Acid [Vitamin C] 500 mg PO DAILY 10/08/21 11/27/22 History Ascorbic Acid/Elderberry Fruit 1 tab PO DAILY 10/08/21 11/27/22 History [Elderberry-Vit C 50-100 mg Chw] Aspirin EC [Ecotrin Low Dose] 81 mg PO DAILY 10/08/21 11/27/22 History Calcium Carbonate [Calcium] 600 mg PO DAILY 10/08/21 11/27/22 History Cholecalciferol [Vitamin D3 (25 25 mcg PO DAILY 10/08/21 11/27/22 History Mcg = 1000 Iu)] Cranberry Fruit Extract [Cranberry] 500 mg PO DAILY 10/08/21 11/27/22 History Cyanocobalamin (Vitamin B-12) 1,000 mcg PO DAILY 10/08/21 11/27/22 History [Vitamin B-12] L.acidoph,Paracasei, B.lactis 1 cap PO DAILY 10/08/21 11/27/22 History [Probiotic] Magnesium 200 mg PO DAILY 10/08/21 11/27/22 History Melatonin 3 mg PO HS 10/08/21 11/27/22 History [place]-3 Fatty Acids/Fish Oil [Fish 1 cap PO DAILY 10/08/21 11/27/22 History Oil 1,000 mg Softgel] Omeprazole 20 mg PO DAILY 10/08/21 11/27/22 History Turmeric Root Extract [Turmeric] 500 mg PO DAILY 10/08/21 11/27/22 History Ubidecarenone [Co Q-10] 100 mg PO DAILY 10/08/21 11/27/22 History Zinc Sulfate [Orazinc] 220 mg PO DAILY #15 cap 10/12/21 11/27/22 Rx Albuterol Nebulized [Ventolin 2.5 mg INHALATION RT-Q8H PRN 11/27/22 11/27/22 His tory Nebulized] Beet Root 1 tab PO DAILY 11/27/22 11/27/22 History Levothyroxine Sodium [Synthroid] 100 mcg PO DAILY 11/27/22 11/27/22 History Lisinopril (Unknown) 1 tab PO DAILY 11/27/22 11/27/22 History Furosemide [Lasix] 20 mg PO DAILY 11/28/22 11/28/22 History Nitroglycerin Sl Tabs [Nitrostat] 0.4 mg SUBLINGUAL Q5M PRN #30 tab 11/28/22 Rx Allergies Allergy/AdvReac Type Severity Reaction Status Date / Time clotrimazole Allergy Swelling Verified 11/27/22 17:45 Physical Exam Vitals: Vital Signs Temp Pulse Pulse Resp BP BP BP 11/28/22 07:00 97.9 F 67 16 126/68 11/28/22 02:26 98.1 F 76 18 121/56 11/27/22 22:05 97.6 F 55 L 17 109/62 11/27/22 20:32 83 14 131/70 11/27/22 18:39 87 15 137/69 11/27/22 17:30 73 18 123/64 11/27/22 17:00 71 19 129/70 11/27/22 16:30 70 22 123/67 11/27/22 16:00 70 15 142/75 11/27/22 14:52 97.9 F 80 24 144/58 Pulse Ox 11/28/22 07:00 97 11/28/22 02:26 97 11/27/22 22:05 96 11/27/22 20:32 99 11/27/22 18:39 99 11/27/22 17:30 100 11/27/22 17:00 100 11/27/22 16:30 100 11/27/22 16:00 99 11/27/22 14:52 99 Intake and Output 11/27/22 11/28/22 11/28/22 22:59 06:59 14:59 Other: Voiding Method Bedside Commode # Voids 1 Weight 79.379 kg Results CBC & Chem 7: 11/28/22 06:02 11/27/22 15:54 Labs: Abnormal Lab Results - Last 24 Hours (Table) 11/27/22 11/27/22 11/28/22 Range/Units 15:54 15:54 06:02 WBC 12.2 H (3.8-10.6) k/uL RBC 3.76 L (3.80-5.40) m/uL Neutrophils # 10.1 H (1.3-7.7) k/uL Sodium 134 L (137-145) mmol/L BUN 20 H (7-17) mg/dL Glucose 109 H (74-99) mg/dL AST 150 H (14-36) U/L ALT 83 H (4-34) U/L Alkaline Phosphatase 131 H (38-126) U/L Cholesterol 228.00 H (0.00-200.00) mg/dL LDL Cholesterol, Calc 141.2 H (0.0-131.0) mg/dL HDL Cholesterol 60.80 H (40.00-60.00) mg/dL Thrombosis Risk Factor Assmnt - Choose All That Apply Each Risk Factor Represents 3 Points: Age 75 years or older Thrombosis Risk Factor Assessment Total Risk Factor Score: 3 Thrombosis Risk Factor Assessment Level: Moderate Risk Assessment and Plan Time with Patient: Greater than 30
[2022-11-28 16:09] LABS: African American GFR (CKD) 68.1 (60.0-200.0); Anion Gap 17.6 mmol/L (10.00-18.00); BUN/Creat Ratio 17.44 Ratio (12.00-20.00); Blood Urea Nitrogen 15.7 mg/dL (9.0-27.0); Carbon Dioxide 18.4 mmol/L (20.0-27.5); Non-African American GFR(CKD) 58.7 (60.0-200.0); Potassium 4.4 mmol/L (3.5-5.5)
--- NOTE | 2022-11-28 19:46 | P.DS ---
Providers Date of admission: 11/27/22 18:51 Expected date of discharge: 11/28/22 Attending physician: Tessie Sams Consults: 11/27/22 18:49 Consult Physician Urgent Consulting Provider: [facility] Consult Reason/Comments: Chest pain Do you want consulting provider notified?: Yes Primary care physician: Saritha Santiago Hospital Course: Final diagnosis Chest pain, ruled out ACS Severe aortic stenosis, being worked up outpatient scheduled for cardiac catheterization and IVETTE with primary animal shelter manager Dr. Olmstead this month Hypertension Hyponatremia, likely due to dehydration as patient had been having some nausea and vomiting Hyperlipidemia Elevated LFTs GI prophylaxis DVT prophylaxis Full code Discharge disposition Patient is being discharged in a stable condition with guarded prognosis to home. Patient will follow-up with Dr. Santiago in the outpatient setting upon discharge. Patient is to follow up with cardiology and GI outpatient as scheduled. Total time taken is greater than 35 minutes. Hospital course This is a 82-year-old female who was recently admitted with chest pain and was evaluated by cardiology. Patient had negative troponin and does have outpatient cardiac catheterization with IVETTE scheduled with Dr. Olmstead later this month. Patient also sees GI outpatient and scheduled for EGD this month as well. Patient symptoms have resolved and patient has been cleared by cardiology for discharge today. Patient reports to feeling well like to go home today. Urged hydration and follow-up with primary care provider with possible repeat labs in the next few days. Currently no reports of chest pain, shortness of breath, or palpitations. Patient is afebrile. No reports of nausea or vomiting and patient is tolerating diet. Patient will be discharged home today. Physical exam: Gen: This is a 82-year-old female who is awake, alert and oriented 3, well- developed, well-nourished HEENT: Head is atraumatic, normocephalic. Pupils equal, round. Sclerae is anicteric. NECK: Supple. No JVD. No lymphadenopathy. No thyromegaly. LUNGS: Clear to auscultation. No wheezes or rhonchi. No intercostal retractions. HEART: Regular rate and rhythm. No murmur. ABDOMEN: Soft. Bowel sounds are present. No masses. No tenderness. EXTREMITIES: No pedal edema. No calf tenderness. NEUROLOGICAL: Patient is awake, alert and oriented x3. Cranial nerves 2 through 12 are grossly intact. Please refer to medication reconciliation sheet for a list of medications. The impression and plan of care has been dictated by Susan Ortiz, Nurse Practitioner as directed. Dr. Tabby MD I have performed a history and examination and MDM of this patient, discussed the same with the dictator, and agree with the dictator's assessment and plan as written ,documented as a scribe. Based on total visit time, I have performed more than 50% of the visit. Patient Condition at Discharge: Fair Plan - Discharge Summary New Discharge Prescriptions: New Nitroglycerin Sl Tabs [Nitrostat] 0.4 mg SUBLINGUAL Q5M PRN #30 tab PRN Reason: Chest Pain Continue Aspirin EC [Ecotrin Low Dose] 81 mg PO DAILY Magnesium 200 mg PO DAILY Cyanocobalamin (Vitamin B-12) [Vitamin B-12] 1,000 mcg PO DAILY Zinc Sulfate [Orazinc] 220 mg PO DAILY #15 cap Lisinopril (Unknown) 1 tab PO DAILY Furosemide [Lasix] 20 mg PO DAILY Omeprazole 20 mg PO DAILY Cholecalciferol [Vitamin D3 (25 Mcg = 1000 Iu)] 25 mcg PO DAILY Ascorbic Acid [Vitamin C] 500 mg PO DAILY Turmeric Root Extract [Turmeric] 500 mg PO DAILY Melatonin 3 mg PO HS L.acidoph,Paracasei, B.lactis [Probiotic] 1 cap PO DAILY Ubidecarenone [Co Q-10] 100 mg PO DAILY [place]-3 Fatty Acids/Fish Oil [Fish Oil 1,000 mg Softgel] 1 cap PO DAILY Cranberry Fruit Extract [Cranberry] 500 mg PO DAILY Calcium Carbonate [Calcium] 600 mg PO DAILY Ascorbic Acid/Elderberry Fruit [Elderberry-Vit C 50-100 mg Chw] 1 tab PO DAILY Levothyroxine Sodium [Synthroid] 100 mcg PO DAILY Albuterol Nebulized [Ventolin Nebulized] 2.5 mg INHALATION RT-Q8H PRN PRN Reason: Shortness Of Breath Beet Root 1 tab PO DAILY Discharge Medication List Ascorbic Acid [Vitamin C] 500 mg PO DAILY 10/08/21 [History] Ascorbic Acid/Elderberry Fruit [Elderberry-Vit C 50-100 mg Chw] 1 tab PO DAILY 10/08/21 [History] Aspirin EC [Ecotrin Low Dose] 81 mg PO DAILY 10/08/21 [History] Calcium Carbonate [Calcium] 600 mg PO DAILY 10/08/21 [History] Cholecalciferol [Vitamin D3 (25 Mcg = 1000 Iu)] 25 mcg PO DAILY 10/08/21 [History] Cranberry Fruit Extract [Cranberry] 500 mg PO DAILY 10/08/21 [History] Cyanocobalamin (Vitamin B-12) [Vitamin B-12] 1,000 mcg PO DAILY 10/08/21 [History] L.acidoph,Paracasei, B.lactis [Probiotic] 1 cap PO DAILY 10/08/21 [History] Magnesium 200 mg PO DAILY 10/08/21 [History] Melatonin 3 mg PO HS 10/08/21 [History] [place]-3 Fatty Acids/Fish Oil [Fish Oil 1,000 mg Softgel] 1 cap PO DAILY 10/08/21 [History] Omeprazole 20 mg PO DAILY 10/08/21 [History] Turmeric Root Extract [Turmeric] 500 mg PO DAILY 10/08/21 [History] Ubidecarenone [Co Q-10] 100 mg PO DAILY 10/08/21 [History] Zinc Sulfate [Orazinc] 220 mg PO DAILY #15 cap 10/12/21 [Rx] Albuterol Nebulized [Ventolin Nebulized] 2.5 mg INHALATION RT-Q8H PRN 11/27/22 [History] Beet Root 1 tab PO DAILY 11/27/22 [History] Levothyroxine Sodium [Synthroid] 100 mcg PO DAILY 11/27/22 [History] Lisinopril (Unknown) 1 tab PO DAILY 11/27/22 [History] Furosemide [Lasix] 20 mg PO DAILY 11/28/22 [History] Nitroglycerin Sl Tabs [Nitrostat] 0.4 mg SUBLINGUAL Q5M PRN #30 tab 11/28/22 [Rx] Follow up Appointment(s)/Referral(s): Javier Olmstead MD [STAFF PHYSICIAN] - 1 Week (office will call patient with appointment ) Saritha Santiago MD [Primary Care Provider] - 1-2 days Ambulatory/Diagnostic Orders: Comprehensive Metabolic Panel [LAB.AMB] Time Frame: 1 Week, Location: None Selected Patient Instructions/Handouts: Chest Pain (DC) Activity/Diet/Wound Care/Special Instructions: Activity Limited until follow-up Follow-up with primary care provider on discharge Keep your scheduled appointment with GI next week Keep your followed up appointment with Dr. Olmstead cardiology as scheduled Continue taking medications as prescribed Discharge Disposition: HOME SELF-CARE
== END 2022-11-28 13:06 | disposition home or self-care (01) ==
LOC: EC 14:49 → 6NMEDSUR 18:51
PROVIDERS: ADMIT Hospitalist; ATTEND Hospitalist
DX: R07.89 Other chest pain (principal); E87.1 Hypo-osmolality and hyponatremia; I08.3 Combined rheumatic disorders of mitral, aortic and tricuspid valves; I10 Essential (primary) hypertension; E78.5 Hyperlipidemia, unspecified; R79.89 Other specified abnormal findings of blood chemistry; R11.2 Nausea with vomiting, unspecified; R61 Generalized hyperhidrosis; R42 Dizziness and giddiness; Z79.82 Long term (current) use of aspirin; Z79.890 Hormone replacement therapy; Z79.899 Other long term (current) drug therapy; Z88.3 Allergy status to other anti-infective agents; Z85.850 Personal history of malignant neoplasm of thyroid; Z96.651 Presence of right artificial knee joint; Z95.828 Presence of other vascular implants and grafts
CPT/HCPCS: 99285; 36415; 93005; 80061; 80053; 80048; 84484; 85025 ×2; 85610; 85730; 71046; G0378 ×2

== ENCOUNTER 2022-12-05 10:33 | Day surgery (SDC) | payer MEDICARE | END 2022-12-05 11:38 | disposition home or self-care (01) | LOC: ORWHC2ENDO 10:33 | PROVIDERS: ATTEND Internal Medicine Gastroenterology | DX: R13.10 Dysphagia, unspecified (principal); Z53.09 Procedure and treatment not carried out because of other contraindication ==

== ENCOUNTER 2022-12-15 05:55 | Day surgery (SDC) | payer MEDICARE ==
[2022-12-13 09:29] VITALS: BMI 29.1
[~2022-12-15 05:55] MED LIST: ALPRAZolam 0.25 MG TAB PO PRN; ALPRAZolam 0.5 MG TAB PO PRN; ASPIRIN 325 MG TAB PO STA; ATORVASTATIN 80 MG TAB PO STA; HEPARIN SODIUM,PORCINE 10,000 UNIT in SODIUM CHLORIDE 0.9% 1,000 ML IRRIGATION PRN; HEPARIN SODIUM,PORCINE 2,500 UNIT in SODIUM CHLORIDE 0.9% 250 ML IRRIGATION PRN; NITROGLYCERIN SL TABS 0.4 MG TAB SUBLINGUAL PRN; SODIUM CHLORIDE 0.9% 1,000 ML in EMPTY BAG 1 BAG IV SCH
[2022-12-15] MEDS ORDERED: SODIUM CHLORIDE 0.9% 1,000 ML IV ONE ×2 (06:10→09:36)
[2022-12-15 06:31] VITALS: TEMP 97.7
[2022-12-15] MEDS ORDERED: fentaNYL (PF) 50 MCG/ML 2 ML AMP ONE ×2 (07:10→08:51)
[2022-12-15] MEDS: BENZOCAINE SPRAY 1 CAN MUCOUS MEM ONE ×2 (07:20→07:35)
[2022-12-15] MEDS ORDERED: MIDAZOLAM 2 MG/2 ML VIAL IVP ONE (07:35)
[2022-12-15] MEDS ORDERED: fentaNYL (PF) 50 MCG/1 ML VIAL IVP ONE (07:35)
[2022-12-15 07:59] VITALS: RESP 16
[2022-12-15] MEDS ORDERED: HEPARIN SODIUM 1,000 UN/ML (10ML VL) ONE (08:51)
[2022-12-15] MEDS ORDERED: VERAPAMIL 2.5 MG/ML 2 ML AMP ONE (08:51)
[2022-12-15] MEDS ORDERED: fentaNYL (PF) 50 MCG/ML 2 ML AMP IVP ONE (09:36)
[2022-12-15] MEDS ORDERED: LIDOCAINE 1% INJ 10MG/ML (5 ML VIAL-PF) SQ ONE ×2 (09:38→09:42)
[2022-12-15] MEDS ORDERED: VERAPAMIL SYRINGE (5 MG/10 ML) INTRAARTER ONE (09:39)
[2022-12-15] MEDS ORDERED: HEPARIN SODIUM 1,000 UN/ML (10ML VL) IVP ONE (09:56)
[2022-12-15] MEDS ORDERED: IOPAMIDOL-370 100ML BTL INJ ONE (10:05)
[2022-12-15 10:07] LABS: O2 Sat Blood Gas 68.4 %
[2022-12-15] MEDS ORDERED: RX INFO: IV CONTRAST WAS GIVEN 1 EACH MISC MISCELLANE PRN (10:14)
[2022-12-15] MEDS ORDERED: SODIUM CHLORIDE 0.9% 1,000 ML IV SCH (10:15)
--- NOTE | 2022-12-15 10:18 | P.CARDCATH ---
Date of Procedure: 12/15/22 Description of Procedure: Indication: Aortic stenosis Procedure Description: After explaining the procedure to the patient, it's risk and complications, blood pressure, heart rate and O2 saturation were monitored. The throat was sprayed with Cetacaine. Patient received 2 mg intravenous Versed, 50 mcg intra venous fentanyl. Attempt to advance the probe were unsuccessful. The patient has a known history of esophageal stricture with prior stretching. Following that, the probe was removed. There was no immediate complication. No images could be obtained.
--- NOTE | 2022-12-15 10:26 | P.CARDCATH ---
Date of Procedure: 12/15/22 Description of Procedure: Cardiac Catheterization: The patient is an 82-year-old female with known history of hypertension and aortic stenosis who was found to have progressive aortic stenosis with progressive dyspnea on exertion. Recommendations were made regarding cardiac catheterization, the risks and the complications were discussed with the patient who is in full understanding and agreement. Procedure Description: Patient was brought to computer lab aide in fasting semi-sedated state after receiving Fentanyl and Benadryl achieiving moderate conscious sedated state. Using Xylocaine Anesthesia and Seldinger technique, a 6-[place] sheath was introduced in the right radial artery . The right cephalic vein venous catheter was exchanged to a 6-[place] sheath. Right heart catheterization was performed using [place]-Preeti catheter, multiple samples and pressures were calculated. Subsequently, selective coronary angiography was performed using a 5-[place] 3.5 bend Ely catheter. Multiple views of the coronary artery including hemiaxial views were obtained. The right Ely catheter was used to cross the aortic valve and LVEDP was calculated. Following that, catheter and sheath were removed. Hemostasis was obtained with deployment of TR band . There was no immediate complication. Patient was returned to room in stable condition. Of note, the patient received a total of 4500 units of intravenous heparin as well as intra-arterial verapamil. Findings: Fluoroscopy: Severe mitral annulus calcification was noted in addition to calcification of the aortic valve Left main: This is a large size vessel, trifurcating into LAD and left circumflex and ramus intermedius, left main has no high-grade stenosis LAD: This is a large size vessel, giving rise to 2 diagonal branch, the LAD has no evidence of high-grade stenosis Left circumflex: This is a nondominant vessel giving rise to one obtuse marginal branch that has no evidence of high-grade stenosis RCA: This is a large dominant vessel, bifurcating into PDA and PLV, the right coronary artery and its branches have no evidence of obstructive disease Ramus intermedius: This vessel reaches to the apical lateral wall, and has no evidence of high-grade stenosis. Left Ventriculogram: Not performed Hemodynamics: Pulmonary artery systolic 54, diastolic 19 with a mean of 35 mmHg, pulmonary capillary wedge pressure A wave of 2,, V-wave of 2 with a mean of 2 mmHg, right ventricle systolic 55 with end-diastolic of 10 mmHg. Right atrium A wave of 10 V-wave of 8 with a mean of 7 mmHg. Mean gradient across the aortic valve 39 mmHg, aortic valve area 0.8 cm. LVEDP was 10-14 mmHg, cardiac output by thermodilution 5.7 L/m, biphasic 6.1 L/m. Right atrial saturation 68% pulmonary artery saturation 71%, arterial saturation 99% Conclusion: 1. Severely calcified mitral anulus and aortic valve 2. No evidence of high-grade coronary artery disease 3. Severe aortic stenosis 4. And mild pulmonary hypertension Recommendations: I have recommended to proceed with evaluation for aortic valve replacement. The findings and the recommendations were discussed with the patient and the family and they were in full understanding and agreement. Duration of sedation is 30 minutes.
[2022-12-15] MEDS ORDERED: ACETAMINOPHEN TAB 325 MG TAB ONE (13:44)
[2022-12-15 16:14] VITALS: BP 131/65; PULSE 74
[2022-12-16] MEDS ORDERED: LEVOTHYROXINE 100 MCG TAB PO SCH (06:30)
[2022-12-16] MEDS ORDERED: PANTOPRAZOLE 40 MG TABLET PO SCH (07:30)
[2022-12-16] MEDS ORDERED: ASPIRIN 81 MG PO SCH (09:00)
[2022-12-16] MEDS ORDERED: lisinopriL 10 MG TAB PO SCH (09:00)
== END 2022-12-15 14:02 | disposition home or self-care (01) ==
LOC: CATHCVL 05:55
PROVIDERS: ATTEND Internal Medicine Interventional Cardiology
DX: I35.0 Nonrheumatic aortic (valve) stenosis (principal); I27.20 Pulmonary hypertension, unspecified; I10 Essential (primary) hypertension; R06.09 Other forms of dyspnea; Z79.899 Other long term (current) drug therapy
CPT/HCPCS: 93460; 85018; 82810; J2250; J2001; J3010 ×2; J1644; Q9967

== ENCOUNTER → 2023-08-23 | Outpatient (CLI) | payer MEDICARE ==
[2023-08-23 10:16] LABS: ALT 19 U/L (4-34); AST 25 U/L (14-36); African American GFR (CKD) 73 (>60 ml/min/1.73 sqM); Albumin/Globulin Ratio 1.3; Alkaline Phosphatase 105 U/L (38-126); Anion Gap 10 mmol/L; Blood Urea Nitrogen 17 mg/dL (7-17); Carbon Dioxide 28 mmol/L (22-30); Chloride 99 mmol/L (98-107); Globulin 3.1 g/dL; Glucose 110 mg/dL (74-99); INR 0.9 (<1.2); Magnesium 1.8 mg/dL (1.6-2.3); Non-African American GFR(CKD) 64 (>60 ml/min/1.73 sqM); Partial Thromboplastin Time 24.4 sec (22.0-30.0); Potassium 4.8 mmol/L (3.5-5.1); Sodium 137 mmol/L (137-145); Total Bilirubin 0.4 mg/dL (0.2-1.3); Total Protein 7.1 g/dL (6.3-8.2)
[2023-08-23 10:25] LABS: NT-Pro-B-Type Natriuretic Pept 253 pg/mL
--- NOTE | 2023-08-23 11:50 | CT ---
EXAMINATION TYPE: CT TAVR Planning DATE OF EXAM: 08/23/2023 HISTORY: TAVR planning CT DLP: 1828.30 mGycm Automated Exposure Control for Dose Reduction was Utilized. CONTRAST: CT scan of the chest, abdomen and pelvis is performed with IV Contrast, patient injected with 125 mL of Isovue 370. COMPARISON: None TECHNIQUE: Helical imaging obtained through the chest, abdomen and pelvis during arterial phase cynthia francisco javier administration of radiographic contrast intravenously. FINDINGS: See report from [employer] regarding preprocedural planning CHEST: Lower Neck and Thyroid: No significant findings Lungs: No significant findings Central Airway: No significant findings Pleura: No significant findings Pulmonary Arteries: No significant findings Heart and Pericardium: No significant findings Lymph Nodes: No significant findings Mediastinum & Esophagus: Small fixed hiatal hernia. ABDOMEN/PELVIS: Please note arterial phase of the imaging limits detailed evaluation of the solid abdominal organs. Liver: No significant findings Spleen: No significant findings Kidneys: No significant findings Adrenal Glands: No significant findings Pancreas: No significant findings Gallbladder: No significant findings Bowel and Mesentery: No significant findings Lymph Nodes: No significant findings Urinary Bladder: No significant findings Pelvic Organs: No significant findings Other: No significant findings Other Lines/Tubes/Devices/Hardware: None IMPRESSION: No significant abnormality seen.
--- NOTE | 2023-08-23 15:52 | US ---
EXAMINATION TYPE: US carotid duplex BILAT DATE OF EXAM: 08/23/2023 COMPARISON: NONE CLINICAL INDICATION: Female, 83 years old with history of I35.1 NONRHEUMATIC AORTIC (VALVE) INSUFFICI ENCY; Nonrheumatic aortic valve insufficiency. TECHNIQUE: Carotid duplex ultrasound examination. Indirect Doppler criteria was utilized. FINDINGS: EXAM MEASUREMENTS: RIGHT: Peak Systolic Velocity (PSV) cm/sec ----- Right CCA: 55.2 ----- Right ICA: 119.8 ----- Right ECA: 58.8 ICA/CCA ratio: 2.2 RIGHT: End Diastole cm/sec ----- Right CCA: 12.5 ----- Right ICA: 29.2 ----- Right ECA: 0.0 LEFT: Peak Systolic Velocity (PSV) cm/sec ----- Left CCA: 61.4 ----- Left ICA: 91.9 ----- Left ECA: 59.5 ICA/CCA ratio: 1.5 LEFT: End Diastole cm/sec ----- Left CCA: 18.0 ----- Left ICA: 34.3 ----- Left ECA: 0.0 VERTEBRALS (direction of flow): Right Vertebral: Antegrade Left Vertebral: Antegrade Rhythm: Normal TRANSITION SOCIAL WORKER NOTES: No elevated velocities at this time. ICA/CCA ratio on the right was 2.2. Plaque seen within right bulb, proximal right ICA, and left bulb. IMPRESSION: Slightly increased ICA/CCA ratio on the right may reflect a mild or moderate proximal right ICA steno sis. No hemodynamically significant internal carotid artery stenosis on either side. Criteria for Assigning % of Stenosis / Diameter reduction (Estimation based on the indirect measurements of the internal carotid artery velocities (ICA PSV). 1. Normal (no stenosis)=ICA PSV < 125 cm/s: ratio < 2.0: ICA EDV<40 cm/s. 2. Less than 50% stenosis=ICA PSV < 125 cm/s: ratio < 2.0: ICA EDV<40 cm/s. 3. 50 to 69% stenosis=ICA PSV of 125 to 230 cm/s: ration 2.0 ? 4.0: ICA EDV 40-100 cm/s. 4. Greater than 70% stenosis to near occlusion= ICA PSV > 230 cm/s: ratio > 4.0: ICA EDV > 100 cm/s. 5. Near occlusion= ICA PSV velocities may be low or undetectable: variable ratio and ICA EDV. 6. Total occlusion=unable to detect flow.
[2023-08-23 17:02] LABS: Basophils # (A) 0.04 X 10*3/uL (0.00-0.10); Basophils % (A) 0.5 %; Eosinophils # (A) 0.46 X 10*3/uL (0.04-0.35); Eosinophils % (A) 5.6 %; HCT 35.2 % (37.2-46.3); HGB 11.6 d/dL (12.0-15.0); Lymphocytes # (A) 1.08 X 10*3/uL (0.90-5.00); Lymphocytes % (A) 13.2 %; MCH 30.5 pg (27.0-32.0); MCV 92.6 FL (80.0-97.0); Mean Platelet Volume 9.5 FL (9.5-12.2); Monocytes # (A) 0.48 X 10*3/uL (0.20-1.00); Monocytes % (A) 5.9 %; NRBC Per 100 WBC 0 X 10*3/uL (0.00-0.01); Neutrophils % (A) 74.6 %; Platelet Count 219 X 10*3/uL (140-440); RDW 14.2 % (11.5-14.5); WBC 8.18 X 10*3/uL (4.50-10.00)
[2023-08-23 17:10] LABS: Appearance,Urine Clear (Clear); Bilirubin,Urine Negative (Negative); Blood,Urine Negative (Negative); Color,Urine Yellow (Yellow); Ketones,Urine Negative (Negative); Nitrite,Urine Negative (Negative); Specific Gravity,Urine 1.016 (1.001-1.030); Urobilinogen,Urine 0.2 E.U./DL
[2023-08-23 17:27] LABS: Bacteria,Urine None Seen (None Seen)
[2023-08-23 18:03] LABS: Chol/HDL Ratio 2.51 Ratio; LDL Cholesterol,Calculated 62.1 mg/dL (0.0-131.0)
[2023-08-23 20:45] LABS: Hepatitis A Antibody IgM Nonreactive; Hepatitis B Core IgM Nonreactive; Hepatitis B Surface Antigen Nonreactive; Hepatitis C IgG Antibody Nonreactive
== END | disposition home or self-care (01) ==
LOC: LABWHC1 09:05
PROVIDERS: ATTEND Thoracic Surgery (Cardiothoracic Vascular Surgery)
DX: Z01.818 Encounter for other preprocedural examination (principal); I35.1 Nonrheumatic aortic (valve) insufficiency; I35.0 Nonrheumatic aortic (valve) stenosis; E11.9 Type 2 diabetes mellitus without complications; E87.8 Other disorders of electrolyte and fluid balance, not elsewhere classified; N28.9 Disorder of kidney and ureter, unspecified; E78.5 Hyperlipidemia, unspecified; E07.9 Disorder of thyroid, unspecified; I44.0 Atrioventricular block, first degree; Z79.899 Other long term (current) drug therapy; Z79.01 Long term (current) use of anticoagulants; R58 Hemorrhage, not elsewhere classified; R35.0 Frequency of micturition
CPT/HCPCS: 94150; 83880; 80061; 80053; 80074; 84443; 83735; 85025; 85610; 85730; 81001; 87086; 83036; 93880; 71275; 74174; 93005; 36415; Q9967

== ENCOUNTER → 2023-09-24 | Outpatient (CLI) | payer MEDICARE ==
[2023-09-24 13:46] LABS: INR 0.9 (<1.2); Partial Thromboplastin Time 24.3 sec (22.0-30.0); Prothrombin Time 10.3 sec (10.0-12.5)
[2023-09-24 21:51] LABS: Basophils # (A) 0.04 X 10*3/uL (0.00-0.10); Basophils % (A) 0.5 %; Eosinophils # (A) 0.41 X 10*3/uL (0.04-0.35); Eosinophils % (A) 4.9 %; HCT 37.7 % (37.2-46.3); Lymphocytes # (A) 1.47 X 10*3/uL (0.90-5.00); Lymphocytes % (A) 17.7 %; MCH 30.3 pg (27.0-32.0); MCHC 31.8 d/dL (32.0-37.0); MCV 95.2 FL (80.0-97.0); Mean Platelet Volume 9.4 FL (9.5-12.2); Monocytes # (A) 0.53 X 10*3/uL (0.20-1.00); Monocytes % (A) 6.4 %; NRBC Per 100 WBC 0 X 10*3/uL (0.00-0.01); Neutrophils # (A) 5.83 X 10*3/uL (1.80-7.70); Neutrophils % (A) 70.1 %; Platelet Count 245 X 10*3/uL (140-440); RBC 3.96 X 10*6/uL (4.10-5.20); RDW 14.5 % (11.5-14.5); WBC 8.31 X 10*3/uL (4.50-10.00)
[2023-09-25 01:28] LABS: ALT 18 U/L (8-44); AST 17 U/L (13-35); Albumin 4.2 d/dL (3.8-4.9); Albumin/Globulin Ratio 1.62 Ratio (1.60-3.17); Alkaline Phosphatase 101 U/L (41-126); Blood Urea Nitrogen 26.8 mg/dL (9.0-27.0); Calcium 8.7 mg/dL (8.7-10.3); Carbon Dioxide 27.7 mmol/L (21.6-31.8); Chloride 99 mmol/L (96-109); Globulin 2.6 d/dL (1.6-3.3); Glucose 113 mg/dL (70-110); Potassium 3.7 mmol/L (3.5-5.5); Sodium 139 mmol/L (135-145); Total Bilirubin 0.3 mg/dL (0.3-1.2); Total Protein 6.8 d/dL (6.2-8.2)
== END | disposition home or self-care (01) ==
LOC: LABPAT 12:46
PROVIDERS: ATTEND Thoracic Surgery (Cardiothoracic Vascular Surgery)
DX: Z01.812 Encounter for preprocedural laboratory examination (principal); I35.0 Nonrheumatic aortic (valve) stenosis; Z79.899 Other long term (current) drug therapy; Z79.01 Long term (current) use of anticoagulants
CPT/HCPCS: 80053; 85025; 85610; 85730; 86850; 86900; 86901

== ENCOUNTER 2023-09-26 05:36 | Inpatient (IN) | payer MEDICARE ==
[2023-09-26] MEDS ORDERED: ATORVASTATIN 10 MG TAB PO ONE (06:00)
[2023-09-26] MEDS ORDERED: INSULIN REGULAR 100 UNIT in SODIUM CHLORIDE 0.9% 100 ML IV PRN (06:00)
[2023-09-26] MEDS ORDERED: methylPREDNISolone SOD SUCCI 125 MG/2 ML VIAL IV ONE (06:00)
[2023-09-26] MEDS ORDERED: diphenhydrAMINE 50 MG/ML 1 ML VIAL IVP ONE (06:00)
[2023-09-26] MEDS ORDERED: FAMOTIDINE 20 MG/2 ML VIAL IV ONE (06:00)
[2023-09-26] MEDS ORDERED: CLOPIDOGREL 75 MG TAB PO ONE (06:00)
[2023-09-26] MEDS ORDERED: ELECTROLYTE-A SOLUTION 1,000 ML with POTASSIUM CHLORIDE 100 MEQ, MAGNESIUM SULFATE 16 M... IV PRN ×5 (06:00)
[2023-09-26] MEDS ORDERED: SODIUM CHLORIDE 0.9% 500 ML 500 ML INTRAARTER PRN (06:00)
[2023-09-26] MEDS ORDERED: TRANEXAMIC ACID 2,000 MG in SODIUM CHLORIDE 0.9% 80 ML IV PRN (06:00)
[2023-09-26] MEDS ORDERED: CLEVIDIPINE BUTYRATE 25 MG in EMPTY BAG 1 BAG IV PRN (06:00)
[2023-09-26] MEDS ORDERED: PROTAMINE SULFATE 250 MG in EMPTY BAG 1 BAG IV PRN (06:00)
[2023-09-26] MEDS ORDERED: ASPIRIN 325 MG TAB PO ONE (06:00)
[2023-09-26] MEDS ORDERED: LACTATED RINGERS 1,000 ML IV SCH ×2 (06:00→09:30)
[2023-09-26] MEDS ORDERED: NITROGLYCERIN-D5W PMX 25 MG/250 ML BTL IV PRN (06:00)
[2023-09-26] MEDS ORDERED: METOPROLOL TARTRATE 25 MG TAB PO ONE (06:00)
[2023-09-26] MEDS ORDERED: SODIUM CHLORIDE 0.9% 1,000 ML IV ONE (06:12)
[2023-09-26 06:34] LABS: Glucose,Whole Blood 96 mg/dL (70-110)
[2023-09-26] MEDS ORDERED: NEOSTIGMINE 1 MG/ML 10 ML VIAL ONE (07:46)
[2023-09-26] MEDS ORDERED: PROPOFOL 10 MG/ML 20 ML VIAL IV ONE (07:46)
[2023-09-26] MEDS ORDERED: MIDAZOLAM 2 MG/2 ML VIAL ONE (07:46)
[2023-09-26] MEDS ORDERED: GLYCOPYRROLATE 0.2 MG/ML 2 ML VIAL ONE (07:46)
[2023-09-26] MEDS ORDERED: SUCCINYLCHOLINE CHLORIDE 200 MG/10 ML VIAL IV ONE (07:46)
[2023-09-26] MEDS ORDERED: HEPARIN SODIUM,PORCINE 10,000 UNIT/ML 1 ML VIAL ONE (07:46)
[2023-09-26] MEDS ORDERED: fentaNYL (PF) 50 MCG/ML 2 ML AMP ONE (07:46)
[2023-09-26] MEDS ORDERED: ROCURONIUM 10 MG/ML (5 ML VIAL) IV ONE (07:46)
[2023-09-26] MEDS ORDERED: ePHEDrine 50 MG/ML 1 ML VIAL ONE (07:46)
[2023-09-26] MEDS ORDERED: PHENYLEPHRINE 10 MG/ML 5 ML VIAL ONE (07:46)
[2023-09-26] MEDS ORDERED: IOPAMIDOL-370 100ML BTL INJ ONE (09:20)
[2023-09-26] MEDS ORDERED: Magnesium Replacement Protocol 1 EACH MISC MISCELLANE PRN (09:30)
[2023-09-26] MEDS ORDERED: Potassium Replacement Protocol 1 EACH MISC MISCELLANE PRN (09:30)
[2023-09-26] MEDS ORDERED: ONDANSETRON 4 MG/2 ML VIAL IVP PRN (09:30)
[2023-09-26] MEDS ORDERED: ACETAMINOPHEN TAB 325 MG TAB PO PRN (09:30)
[2023-09-26] MEDS ORDERED: IPRATROPIUM-ALBUTEROL 3 ML NEB INHALATION PRN (09:30)
[2023-09-26 09:48] LABS: Glucose,Whole Blood 113 mg/dL (70-110)
--- NOTE | 2023-09-26 09:59 | P.PCN ---
Date of Procedure: 09/26/23 Operative Findings: TRANSCATHETER AORITC VALVE REPLACEMENT OPERATIVE REPORT PROCEDURE PERFORMED: 1. Percutaneous Aortic Valve Implantation using a 26 mm Evolut FX 2. Ultrasound guided access and repair of [] femoral artery access site by Perclose closure device. 3. Placement of temporary pacemaker wire. 4. Aortic root angiography INDICATIONS: 1. An 83 year-old with a history of severe symptomatic aortic valve stenosis. The patient was experiencing shortness of breath consistent with NYHA class II PERFORMING PHYSICIANS: 1. Isak Batista MD Interventional Cardiology. 2. Jaron Lu MD, Cardiothoracic Surgeon. SEDATION: General anesthesia provided by anesthesia, see separate note APPROACH: Bilateral femoral artery via percutaneous approach PROCEDURE DESCRIPTION: The patient was discussed at valve clinic with multidisciplinary approach with c ardiothoracic surgeon as well as counter intelligence and thought better treated with TAVR. Risks, benefits, and alternatives of the procedure had been explained to the patient who understood the risks and agreed to proceed. After consents were obtained, patient was brought to the transcatheter aortic valve implantation room in the cardiac culture media laboratory assistant and general anesthesia was provided by the anesthesiologist (see separate report). Once full body sterile prep was performed, right subclavian venous access was obtained and a temporary pacemaker was screwed in, performed by cardiothoracic surgery. Pacing threshholds were checked and deemed appropriate. Next the left femoral artery waw accessed using a modified Seldinger technique, ultrasound guidance and micropuncture technique. A 6 [place] Rabi sheath was placed in the left femoral artery. Next, a 6-[place]ij[place] pigtail catheter was advanced into the aorta and positioned in the aortic root, aortic root angiography was performed to determine optimal d eployment angle. The right femoral artery was accessed using modified Seldinger technique, micropuncture technique and under direct ultrasound guidance. Femoral angiogram was done showing access in the common femoral artery and a 6Fr sheath was placed. Next preclose technique was performed using a two Perclose. Next a 0.035 Safari wire was placed in the Aorta via a pigtail catheter. Subsequentl y we did exchange the 8-Fijian sheath into 14-Fijian sheath. Next a 6F- AL1 catheter was advanced over a wire to the aortic root. A straight wire was advanced through the catheter and used to cross the severely stenotic valve.. Next having the difficulties in a crossing the valve and the severely stenotic valve and calcified valve with a predilatation using 19 mm balloon. Next a 26 mm Evolut FX was advanced. The valve was then positioned across the aortic valve and confirmed with aortic root angiography. [The valve was initially partially deployed however needed repositioning and therefore was recaptured.] The valve was then deployed in proper position using slow deployment and with rapid pacing in conjuncture with aortic root angiography. The delivery system was withdrawn back into the aortic arch. Because we don't have transesophageal echocardiogram would did an aortic root angiogram which showed wide open aortic insufficiency. For that reason we did postdilated dictation using 21 mm balloon and that was performed after we pulled the delivery system out over the stiff wire and put factor 14-Fijian sheath.. There was [id number]-[id number] para valvular leak. There was no evidence of any other significant abnormalities. The preclose Perclose was then deployed in the right femoral artery and hemostasis was achieved. We did achieve good hemostasis documented by angiogram using a rim catheter. Femoral angiogram was performed that showed no contrast leak. The left femoral angiogram demonstrated an arteriotomy in the common femoral artery and this was repaired using a 6F angioseal device with complete hemostasis. The temporary venous pacemaker was sutured in place. The patient was then transported to the ICU in hemodynamically stable condition, requiring no pressor support. COMPLICATIONS: None RECOMMENDATIONS: The patient will be monitored in the ICU for hemodynamic and electrical sta bility. Patient will be on aspirin and Plavix.
--- NOTE | 2023-09-26 10:11 | XR ---
EXAMINATION TYPE: XR chest 1V portable DATE OF EXAM: 09/26/2023 Comparison: 11/27/2022 Clinical History: 83-year-old female Post Operative Cardiac Surgery Findings: Right anterior chest wall injection port with catheter tip at the cavoatrial junction. Post surgical change of the right hilum with volume loss in the right hemithorax redemonstrated. Linear areas of brand spected pleural parenchymal scarring. Some mild interstitial densities along the periphery of the ely gs has developed. Heart upper limits of normal in size. Endovascular aortic valve replacement. Possib le trace right effusion. Impression: Postsurgical change redemonstrated on the right. Development of some mild interstitial changes in the periphery of the lungs. Correlate for possible mild pulmonary vascular congestion.
[2023-09-26 10:17] LABS: Basophils % (A) 0 %; Eosinophils # (A) 0.2 k/uL (0-0.7); Eosinophils % (A) 2 %; HCT 34.4 % (34.0-46.0); HGB 11.4 gm/dL (11.4-16.0); Lymphocytes # (A) 0.5 k/uL (1.0-4.8); Lymphocytes % (A) 6 %; MCH 30.8 pg (25.0-35.0); MCHC 33.2 g/dL (31.0-37.0); MCV 92.9 fL (80.0-100.0); Mean Platelet Volume 7.5; Monocytes # (A) 0.2 k/uL (0-1.0); Monocytes % (A) 2 %; Neutrophils # (A) 8.6 k/uL (1.3-7.7); Neutrophils % (A) 89 %; Platelet Count 200 k/uL (150-450); RDW 14.8 % (11.5-15.5); WBC 9.6 k/uL (3.8-10.6)
--- NOTE | 2023-09-26 10:24 | P.OP ---
Date of Procedure: 09/26/23 Preoperative Diagnosis: Tricuspid calcific aortic stenosis Postoperative Diagnosis: Same Procedure(s) Performed: Percutaneous transfemoral transcatheter aortic valve replacement with 26 mm Medtronic Evolute FX prosthesis Implants: 26 mm Medtronic TAVR valve Anesthesia: GETA Surgeon: Jaron Lu (Cardiovascular surgeon) Warehouse Supervisor 3Rd Shift #1: Isak Batista (international broadcast music librarian) Estimated Blood Loss (ml): 10 Pathology: none sent Disposition: ICU Indications for Procedure: 83-year-old female with symptomatic severe aortic stenosis. Operative Findings: Very tight highly calcified valve. We crossed with difficulty and did a p redilatation. Following deployment of the valve successfully, there was still significant aortic insufficiency which nearly completely resolved with postdilatation. Femoral arteries closed well. Description of Procedure: Patient was brought to the cardiac catheterization laboratory. She was positioned on the table. Gen. anesthesia was induced. The anterior torso and bilateral groins were sterilely prepped and draped. Right subclavian venous access was obtained and a transvenous screw-in pacer was placed in the apex of the right ventricle and connected to a temporary pacer. It was secured with silk sutures. Left femoral access was obtained under ultrasound guidance. A long 6-[place] sheath was advanced into the descending thoracic aorta and a pigtail was advanced through this into the noncoronary sinus of Valsalva. Right femoral access was obtained under ultrasound guidance and a 7-[place] sheath was placed. 2 Perclose devices were placed and the sheath was upsized to a 14- [place] sheath over a stiff wire. Patient was systemically heparinized and a CTs were maintained greater than 250. The valve was crossed from the right femoral approach and a pigtail catheter positioned in the apex of the ventricle. Safari wire was placed in the apex of the ventricle. Predilatation with the 18 mm tube balloon was performed under rapid ventricular pacing. A 26 Medtronic Evolute FX valve had been loaded on the back table and was brought up onto the field and checked under fluoroscopy. 14-[place] sheath was exchanged for the core valve delivery system and it was advanced under fluoroscopic guidance through the iliofemoral system through the descending thoracic aorta around the aortic arch and across the aortic valve. Was deployed under rapid ventricular pacing. Excellent deployment levels were obtained. Echocardiography 6 suggested significant aortic insufficiency and this was confirmed on root injection. Core valve delivery system was exchanged for the 14-[place] sheath over the stiff wire and the valve was crossed with a pigtail catheter. Stiff wire was advanced across the valve and the valve was postdilated with a 21 true balloon. Repeat root angiography now demonstrated only very mild paravalvular leak. Heparin was reversed with protamine. Bilateral groin hemostasis was obtained.
[2023-09-26 11:56] LABS: African American GFR (CKD) 78 (>60 ml/min/1.73 sqM); Anion Gap 10 mmol/L; Blood Urea Nitrogen 22 mg/dL (7-17); Calcium 7.8 mg/dL (8.4-10.2); Carbon Dioxide 23 mmol/L (22-30); Chloride 103 mmol/L (98-107); Glucose 124 mg/dL (74-99); Non-African American GFR(CKD) 68 (>60 ml/min/1.73 sqM); Potassium 4.3 mmol/L (3.5-5.1); Sodium 136 mmol/L (137-145)
[2023-09-26] MEDS ORDERED: SENNOSIDES-DOCUSATE SODIUM 1 EACH TAB PO SCH (21:00)
[2023-09-26] MEDS ORDERED: MELATONIN 5 MG TABLET PO SCH (21:00)
[2023-09-26] MEDS: HEPARIN SODIUM,PORCINE 5,000 UNIT/ML 1 ML VIAL SQ SCH (23:21)
[2023-09-27 06:22] LABS: Basophils % (A) 0 %; Eosinophils % (A) 0 %; HCT 34.1 % (34.0-46.0); HGB 11.5 gm/dL (11.4-16.0); Lymphocytes # (A) 0.9 k/uL (1.0-4.8); Lymphocytes % (A) 7 %; MCHC 33.8 g/dL (31.0-37.0); MCV 94.7 fL (80.0-100.0); Mean Platelet Volume 7.2; Monocytes # (A) 0.6 k/uL (0-1.0); Monocytes % (A) 4 %; Neutrophils # (A) 11.6 k/uL (1.3-7.7); Neutrophils % (A) 87 %; Platelet Count 213 k/uL (150-450); RDW 14.5 % (11.5-15.5); WBC 13.3 k/uL (3.8-10.6)
[2023-09-27] MEDS ORDERED: LEVOTHYROXINE 100 MCG TAB PO SCH (07:30)
[2023-09-27] MEDS ORDERED: PANTOPRAZOLE 40 MG TABLET PO SCH (07:30)
--- NOTE | 2023-09-27 07:55 | XR ---
EXAMINATION TYPE: XR chest 1V portable DATE OF EXAM: 09/27/2023 5:21 AM CLINICAL INDICATION:Female, 83 years old with history of Post Operative Cardiac Surgery; COMPARISON: Chest radiographs from 09/26/2023 TECHNIQUE: XR chest 1V portable Frontal view of the chest. FINDINGS: Lungs/Pleura: Low lung volumes are present. There is no evidence of pleural effusion, focal consolida tion, or pneumothorax. Pulmonary vascularity: Unremarkable. Heart/mediastinum: Cardiomediastinal silhouette is unremarkable. Post aortic valve repair changes. S angel-lead cardiac conduction leads extending from the right hemithorax terminating over the right ve ntricle. Musculoskeletal: No acute osseous pathology. Midline sternotomy wires and surgical clips project over the mediastinum. Other findings: None Lines/Tubes: [id number] projecting over the right hemithorax with distal tip projecting over the s uperior vena cava. IMPRESSION: Low lung volumes, postsurgical changes. No evidence for pneumothorax.
[2023-09-27 08:19] LABS: Ionized Calcium 4.4 mg/dL (4.5-5.3)
[2023-09-27 08:35] LABS: ALT 19 U/L (4-34); African American GFR (CKD) 81 (>60 ml/min/1.73 sqM); Albumin 3.6 g/dL (3.5-5.0); Anion Gap 12 mmol/L; Blood Urea Nitrogen 24 mg/dL (7-17); Carbon Dioxide 20 mmol/L (22-30); Chloride 104 mmol/L (98-107); Glucose 105 mg/dL (74-99); Magnesium 1.8 mg/dL (1.6-2.3); Non-African American GFR(CKD) 71 (>60 ml/min/1.73 sqM); Sodium 136 mmol/L (137-145); Total Bilirubin 0.4 mg/dL (0.2-1.3); Total Protein 6.5 g/dL (6.3-8.2)
[2023-09-27 08:46] LABS: AST 38 U/L (14-36); Alkaline Phosphatase 92 U/L (38-126); Potassium 4.4 mmol/L (3.5-5.1)
[2023-09-27] MEDS: HEPARIN SODIUM,PORCINE 5,000 UNIT/ML 1 ML VIAL SQ SCH (08:55)
[2023-09-27] MEDS ORDERED: MAGNESIUM OXIDE 400 MG TAB PO SCH (09:00)
[2023-09-27] MEDS ORDERED: lisinopriL 10 MG TAB PO SCH (09:00)
[2023-09-27] MEDS ORDERED: MAGNESIUM HYDROXIDE 2,400 MG/30 ML CUP PO PRN (09:00)
[2023-09-27] MEDS ORDERED: NON FORMULARY DRUG (Ascorbic Acid/Elderberry Fruit [Elderberry-Vit C 50-100 Mg Chw] 1 EACH PO SCH (09:00)
[2023-09-27] MEDS ORDERED: ASCORBIC ACID 500 MG TAB PO SCH (09:00)
[2023-09-27] MEDS ORDERED: CHOLECALCIFEROL 25 MCG (1000 IU) TABLET PO SCH (09:00)
[2023-09-27] MEDS ORDERED: CYANOCOBALAMIN 500 MCG TAB PO SCH (09:00)
[2023-09-27] MEDS ORDERED: ZINC SULFATE 220 MG CAP PO SCH (09:00)
[2023-09-27] MEDS ORDERED: BEET ROOT PO SCH (09:00)
[2023-09-27] MEDS ORDERED: ASPIRIN 81 MG PO SCH (09:00)
[2023-09-27] MEDS ORDERED: bisacodyL 10 MG SUPP RECTAL PRN (09:00)
[2023-09-27] MEDS ORDERED: NON FORMULARY DRUG (Omega-3 Fatty Acids/Fish Oil [Fish Oil 1,000 Mg Softgel] 1 EACH Capsul PO SCH (09:00)
[2023-09-27] MEDS ORDERED: NON FORMULARY DRUG (Ubidecarenone [Co Q-10] 100 MG Capsule) PO SCH (09:00)
[2023-09-27] MEDS ORDERED: ATORVASTATIN 40 MG TAB PO SCH (09:00)
[2023-09-27] MEDS ORDERED: NON FORMULARY DRUG (Turmeric Root Extract [Turmeric] 500 MG Capsule) PO SCH (09:00)
[2023-09-27] MEDS ORDERED: CALCIUM CARBONATE 500 MG CHEWABLE PO SCH (09:00)
[2023-09-27] MEDS ORDERED: ECHINACEA 500 MG PO SCH (09:00)
[2023-09-27] MEDS ORDERED: ATORVASTATIN 20 MG TAB PO SCH (09:00)
[2023-09-27 12:24] VITALS: TEMP 97.4
[2023-09-27 14:27] VITALS: BP 119/60; PULSE 83; RESP 24
--- NOTE | 2023-09-27 14:53 | P.DS ---
Providers Date of admission: 09/26/23 05:36 Expected date of discharge: 09/27/23 Attending physician: Isak Batista Consults: 09/26/23 06:00 Consult to Anesthesia Routine Consulting Provider: Anesthesia,Services Consult Reason/Comments: Cardiac Surgery Pre-Op 09/26/23 09:11 Consult Physician Routine Consulting Provider: Jaron Lu Consult Reason/Comments: post TAVR Do you want consulting provider notified?: Already Contacted Primary care physician: Saritha Santiago Hospital Course: MEDICAL HISTORY: 1. Calcified aortic valve with severe symptomatic aortic valve stenosis, NYHA class II 2. Hypertension 3. Hyperlipidemia 4. Esophageal stricture status post dilatation multiple times 5. Lung cancer status post left upper lobectomy 6. Thyroid cancer status post thyroidectomy with subsequent hypothyroid 7. Severe restrictive lung disease, preoperative FEV1 44% of predicted PROCEDURE: 1. Percutaneous aortic valve implantation using a 26 mm Evolute FX under IVETTE and fluoroscopy guidance 2. Transesophageal echocardiography performed by anesthesia 3. Ultrasound-guided access and repair of right femoral artery access site by Perclose closure device 4. Placement of temporary pacemaker wire 5. Aortic root angiography HISTORY OF PRESENT ILLNESS: This is a 83-year-old female who follows on an outpatient basis with Dr. Santiago for primary care and Dr. Olmstead for cardiology. She has a known history of severe aortic stenosis and has been symptomatic with increased exertional dyspnea as well as lower extremity edema. She had been referred to structural heart clinic for evaluation for transcatheter aortic valve replacement after heart catheterization and transesophageal echocardiogram were completed. Echocardiography demonstrated normal systolic function with EF 55-60%, aortic valve area 0.87 cm with a peak/mean gradient 93/55 mmHg. Heart catheterization showed no coronary artery disease. After workup was completed STS risk score was calculated along with incremental risk and the patient was felt to be high risk for surgical aortic valve replacement, therefore transcatheter aortic valve replacement was recommended. The usual course of TAVR was discussed in detail the patient, risks and benefits were reviewed, shared decision making between cardiology, surgery, and the patient/family took place, and the patient consented to proceed with the procedure. HOSPITAL COURSE: The patient was brought to the hospital on 09/26/23, was taken to the extended stay area, prepared in the usual fashion, and subsequently taken to the cardiac catheterization laboratory where Dr. Batista and Dr. Lu completed TAVR procedure under general anesthesia with fluoroscopy and IVETTE. The valve was deployed under rapid ventricular pacing and proceeded without event. At the end of the procedure there was no significant gradient, hemodynamics were felt to be acceptable, and there was no evidence of significant perivalvular leak. Upon completion of the procedure the patient was extubated and was transferred to the cardiovascular intensive care unit where she was recovered and monitored hemodynamically. Her oxygen was titrated down, she was tolerating oral diet, her pain was controlled, follow-up TTE demonstrated normal left ventricular systolic function, no significant gradient, and no significant perivalvular leak and she was ready to be discharged to home on postoperative day #1. She received written and verbal instruction regarding her medications, activity restrictions, signs and symptoms requiring physician notification, and follow-up appointments. Patient Condition at Discharge: Stable Plan - Discharge Summary Discharge Rx Participant: No New Discharge Prescriptions: New Acetaminophen Tab [Tylenol] 650 mg PO Q4HR PRN tab PRN Reason: Fever And/ Or Mild Pain (1-3) Sennosides-Docusate Sodium [Senokot-S] 2 each PO HS PRN tab PRN Reason: Constipation Continue Aspirin EC [Ecotrin Low Dose] 81 mg PO DAILY Magnesium 200 mg PO DAILY Cyanocobalamin (Vitamin B-12) [Vitamin B-12] 500 mcg PO DAILY Zinc Sulfate [Orazinc] 220 mg PO DAILY #15 cap Furosemide [Lasix] 20 mg PO DAILY PRN PRN Reason: Edema Omeprazole 20 mg PO DAILY Cholecalciferol [Vitamin D3 (25 Mcg = 1000 Iu)] 150 mcg PO DAILY Ascorbic Acid [Vitamin C] 500 mg PO DAILY Turmeric Root Extract [Turmeric] 500 mg PO DAILY Melatonin 10 mg PO HS Ubidecarenone [Co Q-10] 200 mg PO DAILY [place]-3 Fatty Acids/Fish Oil [Fish Oil 1,000 mg Softgel] 3 cap PO DAILY Calcium Carbonate [Calcium] 600 mg PO DAILY Ascorbic Acid/Elderberry Fruit [Elderberry-Vit C 50-100 mg Chw] 1 tab PO DAILY Levothyroxine Sodium [Synthroid] 100 mcg PO QAM Beet Root 1 tab PO DAILY Echinacea 760 mg PO DAILY lisinopriL [Prinivil] 10 mg PO DAILY Atorvastatin [Lipitor] 20 mg PO DAILY Discharge Medication List Ascorbic Acid [Vitamin C] 500 mg PO DAILY 10/08/21 [History] Ascorbic Acid/Elderberry Fruit [Elderberry-Vit C 50-100 mg Chw] 1 tab PO DAILY 10/08/21 [History] Aspirin EC [Ecotrin Low Dose] 81 mg PO DAILY 10/08/21 [History] Calcium Carbonate [Calcium] 600 mg PO DAILY 10/08/21 [History] Cholecalciferol [Vitamin D3 (25 Mcg = 1000 Iu)] 150 mcg PO DAILY 10/08/21 [History] Cyanocobalamin (Vitamin B-12) [Vitamin B-12] 500 mcg PO DAILY 10/08/21 [History] Magnesium 200 mg PO DAILY 10/08/21 [History] Melatonin 10 mg PO HS 10/08/21 [History] [place]-3 Fatty Acids/Fish Oil [Fish Oil 1,000 mg Softgel] 3 cap PO DAILY 10/08/21 [History] Omeprazole 20 mg PO DAILY 10/08/21 [History] Turmeric Root Extract [Turmeric] 500 mg PO DAILY 10/08/21 [History] Ubidecarenone [Co Q-10] 200 mg PO DAILY 10/08/21 [History] Zinc Sulfate [Orazinc] 220 mg PO DAILY #15 cap 10/12/21 [Rx] Beet Root 1 tab PO DAILY 11/27/22 [History] Levothyroxine Sodium [Synthroid] 100 mcg PO QAM 11/27/22 [History] Furosemide [Lasix] 20 mg PO DAILY PRN 11/28/22 [History] Echinacea 760 mg PO DAILY 12/13/22 [History] lisinopriL [Prinivil] 10 mg PO DAILY 12/13/22 [History] Atorvastatin [Lipitor] 20 mg PO DAILY 09/20/23 [History] Acetaminophen Tab [Tylenol] 650 mg PO Q4HR PRN tab 09/27/23 [Rx] Sennosides-Docusate Sodium [Senokot-S] 2 each PO HS PRN tab 09/27/23 [Rx] Follow up Appointment(s)/Referral(s): Javier Olmstead MD [STAFF PHYSICIAN] - 10/05/23 10:15 am (Your appointment 10/05 is for a groin check with IVONNE Chatman. You also have a 30 day post TAVR echo and appointment with Dr. Olmstead 12/07/23 @7:30AM, as well as a 1 year post TAVR echo and appointment with Dr. Olmstead 08/28/24 @1:45 PM.) Saritha Santiago MD [Primary Care Provider] - As Needed Clinic,Structural Heart [NON-STAFF] - 12/07/23 9:00 am (You have a 30 day appointment at the TAVR clinic 12/07/23 @9 am, as well as a 1 year appointment at the TAVR clinic 08/28/24 @1:15 PM) Ambulatory/Diagnostic Orders: Basic Metabolic Panel [LAB.AMB] Location: None Selected Basic Metabolic Panel [LAB.AMB] Location: None Selected Complete Blood Count w/diff [LAB.AMB] Location: None Selected Complete Blood Count w/diff [LAB.AMB] Location: None Selected Activity/Diet/Wound Care/Special Instructions: DISCHARGE INSTRUCTIONS: 1. No driving for 1 week, or until physician gives their ok. 2. No lifting, pushing, or pulling more than 5-10 pounds for 1 week. 3. Hold both groins when you cough or sneeze for the next 2 weeks. Bruising is common, but report increased swelling, pain or fever >101F 4. Shower daily. No pool, hot tub, or bathtub for 1 week 5. No powders, lotions, ointments on incisions. 6. No straining, including for bowel movements. Use stool softner if necessary 7. Stairs are not an issue. Go slowly, using handrail and take 1 step at a time. Ambulate several times daily 8. Continue pain control per as needed orders. 9. Take only the medications listed on your discharge form 10. Eat low salt (limited to 2 grams or 2000 milligrams) daily, avoid adding salt, avoid canned/processed foods 11. Take your weight daily in the morning and record, bring with you to your follow up appointments 12. Keep all follow up appointments. You will need a valve clinic appointment at 30 days and 1 year post procedure for follow up 13. You have been referred to and are expected to begin Cardiac Rehab in approximately 4 weeks. 14. You will need antibiotics prior to any dental work, including cleanings, and any surgeries to prevent Endocarditis (bacterial infection in your heart) For any questions or concerns please call your valve coordinators: Loretta or Mohit @ Discharge Disposition: HOME SELF-CARE
--- NOTE | 2023-09-27 17:56 | CA ---
Transthoracic Echo Report Name: Christie Vazquez Age: 83 Gender: F : 1940 Exam Date: 09/27/2023 11:45 Exam Location: [facility] Ht (in): 65 Wt (lb): 180 Ordering Physician: Loretta Mendoza Attending/Referring Phys: [id number], Reji Shellfish Weigher Faisal Oniell Procedure CPT: Indications: post TAVR Cardiac Hx: Technical Quality: Technically difficult study Contrast 1: Total Dose (mL): Contrast 2: Total Dose (mL): MEASUREMENTS (Male / Female) Normal Values 2D ECHO LV Diastolic Diameter PLAX 3.9 cm 4.2 - 5.9 / 3.9 - 5.3 cm LV Systolic Diameter PLAX 2.9 cm IVS Diastolic Thickness 1.2 cm 0.6 - 1.0 / 0.6 - 0.9 cm LVPW Diastolic Thickness 1.1 cm 0.6 - 1.0 / 0.6 - 0.9 cm LV Relative Wall Thickness 0.6 RV Internal Dim ED PLAX 3.6 cm Aortic Root Diameter 2.6 cm LA Systolic Diameter LX 2.9 cm 3.0 - 4.0 / 2.7 - 3.8 cm LV Diastolic Volume MOD BP 49.5 cm??? 67 - 155 / 56 - 104 cm??? LV Systolic Volume MOD BP 24.0 cm??? - 58 / 19 - 49 cm??? LV Ejection Fraction MOD BP 51.5 % >= 55 % LV Cardiac Index MOD BP 1248.2 cm???/min???m??? LV Diastolic Volume MOD 4C 52.7 cm??? LV Systolic Volume MOD 4C 20.8 cm??? LV Ejection Fraction MOD 4C 60.5 % LV Cardiac Index MOD 4C 1562.7 cm???/min???m??? LV Diastolic Length 4C 6.8 cm LV Systolic Length 4C 5.9 cm LV Diastolic Volume MOD 2C 46.4 cm??? LV Systolic Volume MOD 2C 26.5 cm??? LV Ejection Fraction MOD 2C 43.0 % LV Cardiac Index MOD 2C 977.4 cm???/min???m??? LV Diastolic Length 2C 6.8 cm LV Systolic Length 2C 6.2 cm LA Volume 84.0 cm??? 18 - 58 / 22 - 52 cm??? LA Volume Index 42.8 cm???/m??? 16 - 28 cm???/m??? Ascending Aorta Diameter 3.0 cm DOPPLER AV Peak Velocity 186.1 cm/s AV Peak Gradient 13.8 mmHg AV Mean Velocity 133.4 cm/s AV Mean Gradient 8.1 mmHg AV Velocity Time Integral 37.4 cm LVOT Peak Velocity 150.5 cm/s LVOT Peak Gradient 9.1 mmHg LVOT Velocity Time Integral 32.8 cm MV Peak Velocity 211.2 cm/s MV Peak Gradient 17.8 mmHg MV Mean Velocity 139.5 cm/s MV Mean Gradient 9.3 mmHg MV Velocity Time Integral 48.0 cm MR Peak Velocity 450.4 cm/s MR Peak Gradient 81.1 mmHg Mitral E Point Velocity 165.0 cm/s Mitral A Point Velocity 220.2 cm/s Mitral E to A Ratio 0.7 MV Deceleration Time 163.9 ms MV E' Velocity 2.5 cm/s Mitral E to MV E' Ratio 66.6 TR Peak Velocity 396.8 cm/s TR Peak Gradient 63.0 mmHg Right Ventricular Systolic Press 68.0 mmHg PV Peak Velocity 99.4 cm/s PV Peak Gradient 4.0 mmHg FINDINGS Left Ventricle Mildly increased septal wall thickness. Left ventricular ejection fraction is estimated at 55-60 %.Mildly increased left ventricular wall thickness. Normal left ventricular wall motion. Right Ventricle Normal right ventricular size. RVSP= 68mmHg Right Atrium Normal right atrial size. Left Atrium Severely increased left atrial volume. Mildly increased left atrial area. LA volume index= 44ml/m2 Mitral Valve MV peak gragient= 17.8mmHg.severe mitral annular calcification. Mean gradient= 9.3mmHg.moderate mitral regurgitation. Aortic Valve Post TAVR . Trace aortic regurgitation. Peak gradient 14 mmHg with a mean of 8 mmHg Tricuspid Valve Structurally normal tricuspid valve. Mild to moderate TR. Pulmonic Valve Pulmonic valve not well visualized. No pulmonic regurgitation. Pericardium Not well visualized but grossly normal. Aorta Normal size aortic root and proximal ascending aorta. CONCLUSIONS 1. Normal left ventricle size and systolic function 2. Severe mitral and calcification with moderate mitral regurgitation and mitral stenosis 3. Post TAVR with trace perivalvular regurgitation and a mean gradient of 8 mmHg 4. Hcir-[id number]-[id number] tricuspid regurgitation with severe pulmonary hypertension Previewed by: Dr. Javier Olmstead MD (Electronically Signed) Final Date: 27 September 2023 17:56
== END 2023-09-27 15:06 | disposition home or self-care (01) | DRG 267 ==
LOC: 2ORMAIN 05:36 → 2SICU 09:14
PROVIDERS: ADMIT Internal Medicine Interventional Cardiology; ATTEND Internal Medicine Interventional Cardiology
PROC: 02RF38Z Replacement of Aortic Valve with Zooplastic Tissue, Percutaneous Approach (ICD-10-PCS; principal; 2023-09-26 08:00)
DX: I35.0 Nonrheumatic aortic (valve) stenosis (principal); Z00.6 Encounter for examination for normal comparison and control in clinical research program; E78.5 Hyperlipidemia, unspecified; I10 Essential (primary) hypertension; E89.0 Postprocedural hypothyroidism; I36.0 Nonrheumatic tricuspid (valve) stenosis; J98.4 Other disorders of lung; Z85.850 Personal history of malignant neoplasm of thyroid; Z85.118 Personal history of other malignant neoplasm of bronchus and lung; Z90.2 Acquired absence of lung [part of]
CPT/HCPCS: 33210; 33361; 71045; 80048; 80053; 82330; 83735; 85025; 93306; 93308

== ENCOUNTER 2023-11-24 13:09 | Emergency (ER) | payer MEDICARE ==
--- NOTE | 2023-11-24 13:46 | ED ---
General Adult HPI - General Source: patient Mode of arrival: ambulatory Limitations: no limitations <Hunter Hui - Last Filed: 11/24/23 13:44> <Yfn Mujica - Last Filed: 11/24/23 16:01> - General Chief complaint: Upper Respiratory Infection Stated complaint: Cough, Drainage - History of Present Illness Initial comments: Quick note: Patient states she has been coughing up mucus since last night. She was afraid to lay back at night because of it. She denies shortness of breath. She has a history of lung cancer 5 years ago (Hunter Hui) 83-year-old female long history which includes lung cancer with resection 5 years ago hyperlipidemia tension, hypothyroidism, history of aortic valve procedure in August of this year who presents with complaints of rhinorrhea and cough for the last 1-2 days. She denies any chest pain fevers chills nausea vomiting sweats no exertional dyspnea. No known exposure to infectious diseases. (Yfn Mujica) - Related Data Home Medications Medication Instructions Recorded Confirmed Ascorbic Acid [Vitamin C] 500 mg PO DAILY 10/08/21 09/26/23 Ascorbic Acid/Elderberry Fruit 1 tab PO DAILY 10/08/21 09/26/23 [Elderberry-Vit C 50-100 mg Chw] Aspirin EC [Ecotrin Low Dose] 81 mg PO DAILY 10/08/21 09/26/23 Calcium Carbonate [Calcium] 600 mg PO DAILY 10/08/21 09/26/23 Cholecalciferol [Vitamin D3 (25 150 mcg PO DAILY 10/08/21 09/26/23 Mcg = 1000 Iu)] Cyanocobalamin (Vitamin B-12) 500 mcg PO DAILY 10/08/21 09/26/23 [Vitamin B-12] Magnesium 200 mg PO DAILY 10/08/21 09/26/23 Melatonin 10 mg PO HS 10/08/21 09/26/23 [place]-3 Fatty Acids/Fish Oil [Fish 3 cap PO DAILY 10/08/21 09/26/23 Oil 1,000 mg Softgel] Omeprazole 20 mg PO DAILY 10/08/21 09/20/23 Turmeric Root Extract [Turmeric] 500 mg PO DAILY 10/08/21 09/26/23 Ubidecarenone [Co Q-10] 200 mg PO DAILY 10/08/21 09/26/23 Beet Root 1 tab PO DAILY 11/27/22 09/26/23 Levothyroxine Sodium [Synthroid] 100 mcg PO QAM 11/27/22 09/20/23 Furosemide [Lasix] 20 mg PO DAILY PRN 11/28/22 09/20/23 Echinacea 760 mg PO DAILY 12/13/22 09/20/23 lisinopriL [Prinivil] 10 mg PO DAILY 12/13/22 09/20/23 Atorvastatin [Lipitor] 20 mg PO DAILY 09/20/23 09/20/23 Previous Rx's Medication Instructions Recorded Zinc Sulfate [Orazinc] 220 mg PO DAILY #15 cap 10/12/21 Acetaminophen Tab [Tylenol] 650 mg PO Q4HR PRN tab 09/27/23 Sennosides-Docusate Sodium 2 each PO HS PRN tab 09/27/23 [Senokot-S] Azithromycin [Zithromax Z Pack] 1 tab PO DIRECTED #6 tab 11/24/23 Allergies Allergy/AdvReac Type Severity Reaction Status Date / Time clotrimazole Allergy Swelling Verified 11/24/23 13:38 Iodinated Contrast Media AdvReac red & Verified 11/24/23 13:38 itching of face,swelling Review of Systems ROS Other: All systems not noted in ROS Statement are negative. <Hunter Hui - Last Filed: 11/24/23 13:44> ROS Other: All systems not noted in ROS Statement are negative. <Yfn Mujica - Last Filed: 11/24/23 16:01> ROS Statement: Those systems with pertinent positive or pertinent negative responses have been documented in the HPI. 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 History of Any Multi-Drug Resistant Organisms: None Reported Past Surgical History: Heart Catheterization, Joint Replacement Additional Past Surgical History / Comment(s): right knee replaced, lung surg., cataracts removed, colonoscopies, EGD Past Anesthesia/Blood Transfusion Reactions: No Reported Reaction Past Psychological History: No Psychological Hx Reported Smoking Status: Never smoker Past Alcohol Use History: None Reported Past Drug Use History: None Reported - Past Family History Mother Family Medical History: CVA/TIA Brother(s) Family Medical History: Myocardial Infarction (AL) <Hunter Hui - Last Filed: 11/24/23 13:44> General Exam Limitations: no limitations <Hunter Hui - Last Filed: 11/24/23 13:44> General appearance: alert, in no apparent distress Head exam: Present: atraumatic, normocephalic, normal inspection Eye exam: Present: normal appearance, PERRL, EOMI. Absent: scleral icterus, conjunctival injection, periorbital swelling ENT exam: Present: mucous membranes moist, other (February or bruits) Neck exam: Present: normal inspection, full ROM, other. Absent: tenderness, meningismus, lymphadenopathy Respiratory exam: Present: normal lung sounds bilaterally. Absent: respiratory distress, wheezes, rales, rhonchi, stridor Cardiovascular Exam: Present: regular rate, normal rhythm, normal heart sounds. Absent: systolic murmur, diastolic murmur, rubs, gallop, clicks GI/Abdominal exam: Present: soft, normal bowel sounds. Absent: distended, tenderness, guarding, rebound, rigid Extremities exam: Present: normal inspection, full ROM, normal capillary refill. Absent: tenderness, pedal edema, joint swelling, calf tenderness Back exam: Present: normal inspection Neurological exam: Present: alert, oriented X3, CN II-XII intact Psychiatric exam: Present: normal affect, normal mood Skin exam: Present: warm, dry, intact, normal color. Absent: rash <Yfn Mujica - Last Filed: 11/24/23 16:01> - General Exam Comments Initial Comments: Visual physical exam: well appearing, no acute distress (HuiHunter) This is a well-developed well-nourished awake alert oriented 4 female (Yfn Mujica) Course Vital Signs 11/24/23 11/24/23 13:36 15:26 Temperature 98.4 F Pulse Rate 92 Respiratory 24 18 Rate Blood Pressure 136/77 O2 Sat by Pulse 97 Oximetry Medical Decision Making <Yfn Mujica - Last Filed: 11/24/23 16:01> - Medical Decision Making Was pt. sent in by a medical professional or institution (, PA, AUTOMOBILE OR TRUCK RENTAL DISPATCHER, urgent care, hospital, or alf...) When possible be specific @ -No Did you speak to anyone other than the patient for history (EMS, parent, family, police, friend...)? What history was obtained from this source @ - Did you review nursing and triage notes (agree or disagree)? Why? @ -I reviewed and agree with nursing and triage notes Were old charts reviewed (outside hosp., previous admission, EMS record, old EKG , old radiological studies, urgent care reports/EKG's, alf records)? Report findings @ -Previous admission in August of this year old charts were reviewed Differential Diagnosis (chest pain, altered mental status, abdominal pain women, abdominal pain men, vaginal bleeding, weakness, fever, dyspnea, syncope, headache, dizziness, GI bleed, back pain, seizure, CVA, palpatations, mental health, musculoskeletal)? @ -Sinus sinus, bronchitis, pneumonia EKG interpreted by me (3pts min.). @ -Not Done X-rays interpreted by me (1pt min.). @ -Today's chest x-ray interpreted by me and compared with one dated 09/27/23 showing no acute changes or processes CT interpreted by me (1pt min.). @ -None done U/S interpreted by me (1pt. min.). @ -None done What testing was considered but not performed or refused? (CT, X-rays, U/S, labs)? Why? @ -None What meds were considered but not given or refused? Why? @ -None Did you discuss the management of the patient with other professionals (professionals i.e. , PA, AUTOMOBILE OR TRUCK RENTAL DISPATCHER, lab, RT, psych nurse, social services assistant, door frame builder, teacher, amphibious operations officer, home health care case manager)? Give summary @ -No Was smoking cessation discussed for >3mins.? @ -No Was critical care preformed (if so, how long)? @ -No Were there social determinants of health that impacted care today? How? (Homelessness, low income, unemployed, alcoholism, drug addiction, transportation, low edu. Level, literacy, decrease access to med. care, [facility], rehab)? @ -No Was there de-escalation of care discussed even if they declined (Discuss DNR or withdrawal of care, Hospice)? DNR status @ -No What co-morbidities impacted this encounter? (DM, HTN, Smoking, COPD, CAD, Cancer, CVA, ARF, Chemo, Hep., AIDS, mental health diagnosis, sleep apnea, morbid obesity)? @ -Aortic valve procedure, hypertension, hyperlipidemia, history of lung cancer Was patient admitted / discharged? Hospital course, mention meds given and route, prescriptions, significant lab abnormalities, going to OR and other pertinent info. @ -Patient was discharged with prescription for Zithromax Z-Yong Undiagnosed new problem with uncertain prognosis? @ -No Drug Therapy requiring intensive monitoring for toxicity (Heparin, Nitro, Insulin, Cardizem)? @ -No Were any procedures done? @ -No Diagnosis/symptom? @ -Acute sinusitis, bronchitis Acute, or Chronic, or Acute on Chronic? @ -Every Uncomplicated (without systemic symptoms) or Complicated (systemic symptoms)? @ -default Side effects of treatment? @ -No Exacerbation, Progression, or Severe Exacerbation? @ -No Poses a threat to life or bodily function? How? (Chest pain, [place], [place], pneumonia, PE, COPD, DKA, ARF, appy, cholecystitis, CVA, Diverticulitis, Homicidal, Suicidal, threat to staff... and all critical care pts) @ -No (Yfn Mujica) - Lab Data Lab Results 11/24/23 Range/Units 13:42 Influenza Type A (PCR) Not Detected (Not Detectd) Influenza Type B (PCR) Not Detected (Not Detectd) RSV (PCR) Not Detected (Not Detectd) SARS-CoV-2 (PCR) Not Detected (Not Detectd) - Radiology Data Interpreted by me: Chest x-ray imaging interpreted by me no acute processes was compared with one dated 09/27/23. Nasal swabs negative for influenza negative for: Negative for RSV (Yfn Mujica) Disposition <Hunter Hui - Last Filed: 11/24/23 13:44> Is patient prescribed a controlled substance at d/c from ED?: No Decision Date: 11/24/23 Decision Time: 16:00 <Yfn Mujica - Last Filed: 11/24/23 16:01> Clinical Impression: Acute sinusitis, Bronchitis Disposition: HOME SELF-CARE Condition: Good Instructions (If sedation given, give patient instructions): Upper Respiratory Infection (ED), Acute Bronchitis (ED) Prescriptions: Azithromycin [Zithromax Z Pack] 1 tab PO DIRECTED #6 tab Referrals: Saritha Santiago MD [Primary Care Provider] - 1-2 days
--- NOTE | 2023-11-24 14:19 | XR ---
EXAMINATION TYPE: XR chest 2V DATE OF EXAM: 11/24/2023 COMPARISON: 09/27/2023 HISTORY: 83-year-old female with cough TECHNIQUE: PA and lateral views FINDINGS: Right anterior chest wall injection port. Catheter tip at the lower SVC. Calcified subcarinal lymph n ode. Postsurgical change right hilum and medial right upper lobe with similar parenchymal distortion. Endovascular aortic valve replacement. Heart normal size. Unchanged blunting lateral right costophre fabián angle likely some parenchymal scarring. No other consolidation or pleural effusion is seen. Loss of the subacromial space right shoulder. IMPRESSION: 1. Post surgical change right hilum and evidence of prior granulomatous disease. Similar blunting of the right costophrenic angle probably relating to pleural parenchymal scarring. No definite acute hollie nge. 2. Chronic full-thickness rotator cuff tear right shoulder.
[2023-11-24 15:48] VITALS: RESP 18
[2023-11-24 16:31] VITALS: BP 145/78; PULSE 79; TEMP 98.3
== END 2023-11-24 16:29 | disposition home or self-care (01) ==
LOC: EC 13:09
DX: J32.9 Chronic sinusitis, unspecified (principal); J40 Bronchitis, not specified as acute or chronic; K21.9 Gastro-esophageal reflux disease without esophagitis; E78.5 Hyperlipidemia, unspecified; I10 Essential (primary) hypertension; E07.9 Disorder of thyroid, unspecified; Z79.890 Hormone replacement therapy; Z20.822 Contact with and (suspected) exposure to COVID-19; Z79.899 Other long term (current) drug therapy; Z91.041 Radiographic dye allergy status; Z88.8 Allergy status to other drugs, medicaments and biological substances
CPT/HCPCS: 71046; 87636; 99284

== ENCOUNTER 2024-08-22 10:30 | Emergency (ER) | payer MEDICARE ==
[2024-08-22] MEDS: BACITRACIN OINT 1 EACH PACKET TOPICAL ONE (11:30)
--- NOTE | 2024-08-22 11:35 | ED ---
Skin/Abscess/FB HPI - General Chief complaint: Skin/Abscess/Foreign Body Stated complaint: attacked by chicken Time Seen by Provider: 08/22/24 10:59 Source: patient, RN notes reviewed Mode of arrival: EMS Limitations: no limitations - History of Present Illness Initial comments: This is an 84-year-old female who presents to the emergency department for a puncture wound to the right leg. Patient's rooster attacked her this morning and the spurs on its feet caused puncture wounds to the right ng. Per EMS there was a fair amount of blood on scene. They were able to get the bleeding to stop by applying pressure. States that she felt dizzy and lightheaded initially, however this has since resolved. Denies any substantial pain associated with this. Tetanus vaccine is up-to-date. Not taking any blood thinners. - Related Data Home Medications Medication Instructions Recorded Confirmed Ascorbic Acid [Vitamin C] 500 mg PO DAILY 10/08/21 09/26/23 Ascorbic Acid/Elderberry Fruit 1 tab PO DAILY 10/08/21 09/26/23 [Elderberry-Vit C 50-100 mg Chw] Aspirin EC [Ecotrin Low Dose] 81 mg PO DAILY 10/08/21 09/26/23 Calcium Carbonate [Calcium] 600 mg PO DAILY 10/08/21 09/26/23 Cholecalciferol [Vitamin D3 (25 150 mcg PO DAILY 10/08/21 09/26/23 Mcg = 1000 Iu)] Cyanocobalamin (Vitamin B-12) 500 mcg PO DAILY 10/08/21 09/26/23 [Vitamin B-12] Magnesium 200 mg PO DAILY 10/08/21 09/26/23 Melatonin 10 mg PO HS 10/08/21 09/26/23 Capac-3 Fatty Acids/Fish Oil [Fish 3 cap PO DAILY 10/08/21 09/26/23 Oil 1,000 mg Softgel] Omeprazole 20 mg PO DAILY 10/08/21 09/20/23 Turmeric Root Extract [Turmeric] 500 mg PO DAILY 10/08/21 09/26/23 Ubidecarenone [Co Q-10] 200 mg PO DAILY 10/08/21 09/26/23 Beet Root 1 tab PO DAILY 11/27/22 09/26/23 Levothyroxine Sodium [Synthroid] 100 mcg PO QAM 11/27/22 09/20/23 Furosemide [Lasix] 20 mg PO DAILY PRN 11/28/22 09/20/23 Echinacea 760 mg PO DAILY 12/13/22 09/20/23 lisinopriL [Prinivil] 10 mg PO DAILY 12/13/22 09/20/23 Atorvastatin [Lipitor] 20 mg PO DAILY 09/20/23 09/20/23 Previous Rx's Medication Instructions Recorded Zinc Sulfate [Orazinc] 220 mg PO DAILY #15 cap 10/12/21 Acetaminophen Tab [Tylenol] 650 mg PO Q4HR PRN tab 09/27/23 Sennosides-Docusate Sodium 2 each PO HS PRN tab 09/27/23 [Senokot-S] Azithromycin [Zithromax Z Pack] 1 tab PO DIRECTED #6 tab 11/24/23 Allergies Allergy/AdvReac Type Severity Reaction Status Date / Time clotrimazole Allergy Swelling Verified 08/22/24 10:39 Iodinated Contrast Media AdvReac red & Verified 08/22/24 10:39 itching of face,swelling Review of Systems ROS Statement: Those systems with pertinent positive or pertinent negative responses have been documented in the HPI. ROS Other: All systems not noted in ROS Statement are negative. 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 History of Any Multi-Drug Resistant Organisms: None Reported Past Surgical History: Heart Catheterization, Joint Replacement Additional Past Surgical History / Comment(s): right knee replaced, lung surg., cataracts removed, colonoscopies, EGD, valve replacement Past Anesthesia/Blood Transfusion Reactions: No Reported Reaction Past Psychological History: No Psychological Hx Reported Smoking Status: Never smoker Past Alcohol Use History: None Reported Past Drug Use History: None Reported - Past Family History Mother Family Medical History: CVA/TIA Brother(s) Family Medical History: Myocardial Infarction ([place]) General Exam Limitations: no limitations General appearance: alert, in no apparent distress Head exam: Present: atraumatic, normocephalic, normal inspection Respiratory exam: Present: normal lung sounds bilaterally. Absent: respiratory distress, wheezes, rales, rhonchi, stridor Cardiovascular Exam: Present: regular rate, normal rhythm, normal heart sounds. Absent: systolic murmur, diastolic murmur, rubs, gallop, clicks Extremities exam: Present: other (2 superficial puncture wounds to the right ng. These have already started to scab over. No active bleeding.) Neurological exam: Present: alert, oriented X3, CN II-XII intact Psychiatric exam: Present: normal affect, normal mood Course Vital Signs 08/22/24 08/22/24 10:32 12:17 Temperature 97.8 F Pulse Rate 90 95 Respiratory 18 16 Rate Blood Pressure 133/66 120/71 O2 Sat by Pulse 96 99 Oximetry Medical Decision Making - Medical Decision Making This is an 84 year old female who presents to the emergency department for puncture wounds to the right leg. Was pt. sent in by a medical professional or institution? @ -No Did you speak to anyone other than the patient for history? @ -No Did you review nursing and triage notes? @ -Yes, and I agree, it is accurate with regards to the patient's symptoms. Were old charts reviewed? @ -No Differential Diagnosis? @ -Abrasion, laceration, bite, burn, puncture wound, this is not meant to be an all-inclusive list. EKG interpreted by me (3pts min.)? @ -Not obtained X-rays interpreted by me (1pt min.)? @ -Not obtained CT interpreted by me (1pt min.)? @ -Not obtained U/S interpreted by me (1pt. min.)? @ -Not obtained What testing was considered but not performed? (CT, X-rays, U/S, labs)? Why? @ -None What meds were considered but not given? Why? @ -None Did you discuss the management of the patient with other professionals? @ -No Did you reconcile home meds? @ -No Was smoking cessation discussed for >3mins.? @ -No Was critical care preformed (if so, how long)? @ -No Were there social determinants of health that impacted care today? How? (Homelessness, low income, unemployed, alcoholism, drug addiction, transpo rtation, low edu. Level, literacy, decrease access to med. care, residential, rehab)? @ -No Was there de-escalation of care discussed even if they declined? (Discuss DNR or withdrawal of care, Hospice)? @ -No What co-morbidities impacted this encounter? (DM, HTN, Smoking, COPD, CAD, Cancer, CVA, Hep., AIDS, mental health diagnosis, sleep apnea, morbid obesity)? @ -None Was patient admitted / discharged? @ -Discharged. On arrival the bleeding had completely stopped and the superficial puncture wounds were already healing and scabbed over. Bacitracin ointment was applied followed by compression dressings. She is advised to leave this in place for 48 hours. Tetanus vaccine is already up-to-date. Advised she return to the emergency department if she bleeds through the bandages. Patient otherwise discharged home in stable condition. Case discussed with ED attending Dr. Whitley. Return precautions reviewed in depth, the patient is instructed to return to the emergency department with any new, worsening, or concerning symptoms. Patient verbalized understanding. Undiagnosed new problem with uncertain prognosis? @ -None Drug Therapy requiring intensive monitoring for toxicity (Heparin, Nitro, Insulin, Cardizem)? @ -None Were any procedures done? @ -None Diagnosis/symptom? @ -Puncture wound to the right leg Acute, or Chronic, or Acute on Chronic? @ -Acute Uncomplicated (without systemic symptoms) or Complicated (systemic symptoms)? @ -Uncomplicated Side effects of treatment? @ -None Exacerbation, Progression, or Severe Exacerbation] @ -Not applicable Poses a threat to life or bodily function? @ -No Disposition Clinical Impression: Puncture wound of right lower leg Disposition: HOME SELF-CARE Instructions (If sedation given, give patient instructions): Puncture Wound (ED) Additional Instructions: Return to the emergency department with any new, worsening, or concerning symptoms. Leave the bandage alone for 48 hours before changing it. Return if you bleed through the bandage. Is patient prescribed a controlled substance at d/c from ED?: No Referrals: Saritha Santiago MD [Primary Care Provider] - 1-2 days Time of Disposition: 11:35
[2024-08-22 12:17] VITALS: RESP 16
[2024-08-22 13:17] VITALS: BP 122/84; PULSE 92; TEMP 98
== END 2024-08-22 13:15 | disposition home or self-care (01) ==
LOC: EC 10:30
DX: W61.32XA Struck by chicken, initial encounter
CPT/HCPCS: 99282

== ENCOUNTER 2024-09-02 14:22 | Emergency (ER) | payer MEDICARE ==
--- NOTE | 2024-09-02 15:00 | ED ---
General Adult HPI - General Chief complaint: Shortness of Breath Stated complaint: Dizziness,SOB Time Seen by Provider: 09/02/24 14:30 Source: patient, RN notes reviewed, old records reviewed Mode of arrival: ambulatory Limitations: no limitations - History of Present Illness Initial comments: This is an 84-year-old female who presents to the emergency department complaining that over the last 10 days she has been very fatigued and lightheaded. Patient states she was attacked by a rooster 10 days ago and she bled quite a bit all over the house and she came to the emergency department and they stopped the bleeding and she was discharged home patient states she also feels short of breath which started today. Patient denies chest pain difficulty breathing. Patient has any fever chills. Patient denies any abdominal pain patient has nausea vomiting or diarrhea. Patient denies any back pain. Patient denies any dysuria hematuria or urinary frequency. - Related Data Home Medications Medication Instructions Recorded Confirmed Ascorbic Acid [Vitamin C] 500 mg PO DAILY 10/08/21 09/26/23 Ascorbic Acid/Elderberry Fruit 1 tab PO DAILY 10/08/21 09/26/23 [Elderberry-Vit C 50-100 mg Chw] Aspirin EC [Ecotrin Low Dose] 81 mg PO DAILY 10/08/21 09/26/23 Calcium Carbonate [Calcium] 600 mg PO DAILY 10/08/21 09/26/23 Cholecalciferol [Vitamin D3 (25 150 mcg PO DAILY 10/08/21 09/26/23 Mcg = 1000 Iu)] Cyanocobalamin (Vitamin B-12) 500 mcg PO DAILY 10/08/21 09/26/23 [Vitamin B-12] Magnesium 200 mg PO DAILY 10/08/21 09/26/23 Melatonin 10 mg PO HS 10/08/21 09/26/23 [place]-3 Fatty Acids/Fish Oil [Fish 3 cap PO DAILY 10/08/21 09/26/23 Oil 1,000 mg Softgel] Omeprazole 20 mg PO DAILY 10/08/21 09/20/23 Turmeric Root Extract [Turmeric] 500 mg PO DAILY 10/08/21 09/26/23 Ubidecarenone [Co Q-10] 200 mg PO DAILY 10/08/21 09/26/23 Beet Root 1 tab PO DAILY 11/27/22 09/26/23 Levothyroxine Sodium [Synthroid] 100 mcg PO QAM 11/27/22 09/20/23 Furosemide [Lasix] 20 mg PO DAILY PRN 11/28/22 09/20/23 Echinacea 760 mg PO DAILY 12/13/22 09/20/23 lisinopriL [Prinivil] 10 mg PO DAILY 12/13/22 09/20/23 Atorvastatin [Lipitor] 20 mg PO DAILY 09/20/23 09/20/23 Previous Rx's Medication Instructions Recorded Zinc Sulfate [Orazinc] 220 mg PO DAILY #15 cap 10/12/21 Acetaminophen Tab [Tylenol] 650 mg PO Q4HR PRN tab 09/27/23 Sennosides-Docusate Sodium 2 each PO HS PRN tab 09/27/23 [Senokot-S] Azithromycin [Zithromax Z Pack] 1 tab PO DIRECTED #6 tab 11/24/23 Allergies Allergy/AdvReac Type Severity Reaction Status Date / Time clotrimazole Allergy Swelling Verified 09/02/24 14:33 Iodinated Contrast Media AdvReac red & Verified 09/02/24 14:33 itching of face,swelling Review of Systems ROS Statement: Those systems with pertinent positive or pertinent negative responses have been documented in the HPI. ROS Other: All systems not noted in ROS Statement are negative. 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 History of Any Multi-Drug Resistant Organisms: None Reported Past Surgical History: Heart Catheterization, Joint Replacement Additional Past Surgical History / Comment(s): right knee replaced, lung surg., cataracts removed, colonoscopies, EGD, valve replacement Past Anesthesia/Blood Transfusion Reactions: No Reported Reaction Past Psychological History: No Psychological Hx Reported Smoking Status: Never smoker Past Alcohol Use History: None Reported Past Drug Use History: None Reported - Past Family History Mother Family Medical History: CVA/TIA Brother(s) Family Medical History: Myocardial Infarction ([place]) General Exam - General Exam Comments Initial Comments: GENERAL: Patient is well-developed and well-nourished. Patient is nontoxic and well- hydrated and is in mild distress. ENT: Neck is soft and supple. No significant lymphadenopathy is noted. Oropharynx is clear. Moist mucous membranes. Neck has full range of motion without eliciting any pain. EYES: The sclera were anicteric and conjunctiva were pink and moist. Extraocular movements were intact and pupils were equal round and reactive to light. Eyelids were unremarkable. PULMONARY: Unlabored respirations. Good breath sounds bilaterally. No audible rales rhonchi or wheezing was noted. CARDIOVASCULAR: There is a regular rate and rhythm without any murmurs gallops or rubs. ABDOMEN: Soft and nontender with normal bowel sounds. SKIN: Skin is clear with no lesions or rashes and otherwise unremarkable. NEUROLOGIC: Patient is alert and oriented x3. Cranial nerves II through XII are grossly intact. Motor and sensory are also intact. Normal speech, volume and content. Symmetrical smile. MUSCULOSKELETAL: Normal extremities with adequate strength and full range of motion. 1+ bilat eral leg edema LYMPHATICS: No significant lymphadenopathy is noted PSYCHIATRIC: Normal psychiatric evaluation. Limitations: no limitations Course Vital Signs 09/02/24 09/02/24 09/02/24 14:28 15:13 16:04 Temperature 97.5 F L 97.0 F L Pulse Rate 96 98 Respiratory 26 H 20 24 Rate Blood Pressure 139/74 141/70 O2 Sat by Pulse 99 Oximetry Medical Decision Making - Medical Decision Making EKG is interpreted by myself. EKG shows sinus rhythm at 90 bpm. UT interval 164 QRS is 120 QT interval 361 QTc is 417. Patient's EKG shows no ST segment elevation or depression. Was pt. sent in by a medical professional or institution (, PA, [employer], urgent care, hospital, or senior living...) When possible be specific @ -No Did you speak to anyone other than the patient for history (EMS, parent, family, police, friend...)? What history was obtained from this source @ -No Did you review nursing and triage notes (agree or disagree)? Why? @ -I reviewed and agree with nursing and triage notes Were old charts reviewed (outside hosp., previous admission, EMS record, old EKG, old radiological studies, urgent care reports/EKG's, senior living records)? Report findings @ -No old charts were reviewed Differential Diagnosis? @ -Differential Dyspnea: Coronary syndrome, arrhythmia, tamponade, asthma, COPD, pulmonary embolism, pneumonia, pneumothorax, pulmonary effusion, anaphylaxis, diabetic ketoacidosis, flailed chest, pulmonary contusion, diaphragmatic rupture, anemia, neuromuscular, this is not meant to be an all-inclusive list. EKG interpreted by me (3pts min.). @ -As above X-rays interpreted by me (1pt min.). @ -Chest x-ray shows no acute abnormality CT interpreted by me (1pt min.). @ -None done U/S interpreted by me (1pt. min.). @ -None done What testing was considered but not performed or refused? (CT, X-rays, U/S, labs)? Why? @ -None What meds were considered but not given or refused? Why? @ -None Did you discuss the management of the patient with other professionals (professionals i.e. , PA, [employer], lab, RT, psych nurse, social scientist, city planning engineer, teacher, corrections officer, vocational case manager)? Give summary @ -No Was smoking cessation discussed for >3mins.? @ -No Was critical care preformed (if so, how long)? @ -No Were there social determinants of health that impacted care today? How? (Homelessness, low income, unemployed, alcoholism, drug addiction, transportation, low edu. Level, literacy, decrease access to med. care, longterm, rehab)? @ -No Was there de-escalation of care discussed even if they declined (Discuss DNR or withdrawal of care, Hospice)? DNR status @ -No What co-morbidities impacted this encounter? (DM, HTN, Smoking, COPD, CAD, Cancer, CVA, ARF, Chemo, Hep., AIDS, mental health diagnosis, sleep apnea, morbid obesity)? @ -None Was patient admitted / discharged? Hospital course, mention meds given and route, prescriptions, significant lab abnormalities, going to OR and other pertinent info. @ -Patient's hemoglobin is 9.5. Patient's prior hemoglobins were always above 11.5 however it has been a year ago. Patient showed me pictures of her bleeding after she was packed by a rooster 10 days ago and it was quite extensive at the house. Patient states ever since then she has not been feeling herself and does not have the same energy. Undiagnosed new problem with uncertain prognosis? @ -No Drug Therapy requiring intensive monitoring for toxicity (Heparin, Nitro, Insulin, Cardizem)? @ -No Were any procedures done? @ -No Diagnosis/symptom? @ -Anemia Acute, or Chronic, or Acute on Chronic? @ -Acute Uncomplicated (without systemic symptoms) or Complicated (systemic symptoms)? @ -Complicated Side effects of treatment? @ -No Exacerbation, Progression, or Severe Exacerbation? @ -No Poses a threat to life or bodily function? How? (Chest pain, [place], [place], pneumonia, PE, COPD, DKA, ARF, appy, cholecystitis, CVA, Diverticulitis, Homicidal, Suicidal, threat to staff... and all critical care pts) @ -No - Lab Data Result diagrams: 09/02/24 15:11 09/02/24 15:11 Lab Results 09/02/24 09/02/24 09/02/24 Range/Units 15:11 15:11 15:11 WBC 9.1 (3.8-10.6) k/uL RBC 3.19 L (3.80-5.40) m/uL Hgb 9.5 L (11.4-16.0) gm/dL Hct 29.1 L (34.0-46.0) % MCV 91.2 (80.0-100.0) fL MCH 29.7 (25.0-35.0) pg MCHC 32.6 (31.0-37.0) g/dL RDW 14.1 (11.5-15.5) % Plt Count 345 (150-450) k/uL MPV 6.3 Neutrophils % 80 % Lymphocytes % 10 % Monocytes % 4 % Eosinophils % 3 % Basophils % 0 % Neutrophils # 7.3 (1.3-7.7) k/uL Lymphocytes # 0.9 L (1.0-4.8) k/uL Monocytes # 0.3 (0-1.0) k/uL Eosinophils # 0.3 (0-0.7) k/uL Basophils # 0.0 (0-0.2) k/uL Hypochromasia Slight Poikilocytosis Slight PT 9.7 L (10.0-12.5) sec INR 0.9 (<1.2) APTT 24.0 (22.0-30.0) sec Sodium (137-145) mmol/L Potassium (3.5-5.1) mmol/L Chloride (98-107) mmol/L Carbon Dioxide (22-30) mmol/L Anion Gap mmol/L BUN (7-17) mg/dL Creatinine (0.52-1.04) mg/dL Est GFR (CKD-EPI)AfAm (>60 ml/min/1.73 sqM) Est GFR (CKD-EPI)NonAf (>60 ml/min/1.73 sqM) Glucose (74-99) mg/dL Plasma Lactic Acid Oscar (0.7-2.0) mmol/L Calcium (8.4-10.2) mg/dL Magnesium (1.6-2.3) mg/dL Total Bilirubin (0.2-1.3) mg/dL AST (14-36) U/L ALT (4-34) U/L Alkaline Phosphatase (38-126) U/L Troponin I (0.000-0.034) ng/mL Total Protein (6.3-8.2) g/dL Albumin (3.5-5.0) g/dL Urine Color Colorless Urine Appearance Clear (Clear) Urine pH 7.0 (5.0-8.0) Ur Specific [place] 1.004 (1.001-1.035) Urine Protein Negative (Negative) Urine Glucose (UA) Negative (Negative) Urine Ketones Negative (Negative) Urine Blood Negative (Negative) Urine Nitrite Negative (Negative) Urine Bilirubin Negative (Negative) Urine Urobilinogen <2.0 (<2.0) mg/dL Ur Leukocyte Esterase Negative (Negative) Influenza Type A (PCR) (Not Detectd) Influenza Type B (PCR) (Not Detectd) RSV (PCR) (Not Detectd) SARS-CoV-2 (PCR) (Not Detectd) 09/02/24 09/02/24 09/02/24 Range/Units 15:11 15:11 15:11 WBC (3.8-10.6) k/uL RBC (3.80-5.40) m/uL Hgb (11.4-16.0) gm/dL Hct (34.0-46.0) % MCV (80.0-100.0) fL MCH (25.0-35.0) pg MCHC (31.0-37.0) g/dL RDW (11.5-15.5) % Plt Count (150-450) k/uL MPV Neutrophils % % Lymphocytes % % Monocytes % % Eosinophils % % Basophils % % Neutrophils # (1.3-7.7) k/uL Lymphocytes # (1.0-4.8) k/uL Monocytes # (0-1.0) k/uL Eosinophils # (0-0.7) k/uL Basophils # (0-0.2) k/uL Hypochromasia Poikilocytosis PT (10.0-12.5) sec INR (<1.2) APTT (22.0-30.0) sec Sodium 133 L (137-145) mmol/L Potassium 4.0 (3.5-5.1) mmol/L Chloride 99 (98-107) mmol/L Carbon Dioxide 27 (22-30) mmol/L Anion Gap 7 mmol/L BUN 11 (7-17) mg/dL Creatinine 0.85 (0.52-1.04) mg/dL Est GFR (CKD-EPI)AfAm 72 (>60 ml/min/1.73 sqM) Est GFR (CKD-EPI)NonAf 63 (>60 ml/min/1.73 sqM) Glucose 96 (74-99) mg/dL Plasma Lactic Acid Oscar 1.3 (0.7-2.0) mmol/L Calcium 9.0 (8.4-10.2) mg/dL Magnesium 1.8 (1.6-2.3) mg/dL Total Bilirubin 0.5 (0.2-1.3) mg/dL AST 33 (14-36) U/L ALT 21 (4-34) U/L Alkaline Phosphatase 105 (38-126) U/L Troponin I <0.012 (0.000-0.034) ng/mL Total Protein 7.0 (6.3-8.2) g/dL Albumin 4.2 (3.5-5.0) g/dL Urine Color Urine Appearance (Clear) Urine pH (5.0-8.0) Ur Specific [place] (1.001-1.035) Urine Protein (Negative) Urine Glucose (UA) (Negative) Urine Ketones (Negative) Urine Blood (Negative) Urine Nitrite (Negative) Urine Bilirubin (Negative) Urine Urobilinogen (<2.0) mg/dL Ur Leukocyte Esterase (Negative) Influenza Type A (PCR) (Not Detectd) Influenza Type B (PCR) (Not Detectd) RSV (PCR) (Not Detectd) SARS-CoV-2 (PCR) (Not Detectd) 09/02/24 Range/Units 15:11 WBC (3.8-10.6) k/uL RBC (3.80-5.40) m/uL Hgb (11.4-16.0) gm/dL Hct (34.0-46.0) % MCV (80.0-100.0) fL MCH (25.0-35.0) pg MCHC (31.0-37.0) g/dL RDW (11.5-15.5) % Plt Count (150-450) k/uL MPV Neutrophils % % Lymphocytes % % Monocytes % % Eosinophils % % Basophils % % Neutrophils # (1.3-7.7) k/uL Lymphocytes # (1.0-4.8) k/uL Monocytes # (0-1.0) k/uL Eosinophils # (0-0.7) k/uL Basophils # (0-0.2) k/uL Hypochromasia Poikilocytosis PT (10.0-12.5) sec INR (<1.2) APTT (22.0-30.0) sec Sodium (137-145) mmol/L Potassium (3.5-5.1) mmol/L Chloride (98-107) mmol/L Carbon Dioxide (22-30) mmol/L Anion Gap mmol/L BUN (7-17) mg/dL Creatinine (0.52-1.04) mg/dL Est GFR (CKD-EPI)AfAm (>60 ml/min/1.73 sqM) Est GFR (CKD-EPI)NonAf (>60 ml/min/1.73 sqM) Glucose (74-99) mg/dL Plasma Lactic Acid Oscar (0.7-2.0) mmol/L Calcium (8.4-10.2) mg/dL Magnesium (1.6-2.3) mg/dL Total Bilirubin (0.2-1.3) mg/dL AST (14-36) U/L ALT (4-34) U/L Alkaline Phosphatase (38-126) U/L Troponin I (0.000-0.034) ng/mL Total Protein (6.3-8.2) g/dL Albumin (3.5-5.0) g/dL Urine Color Urine Appearance (Clear) Urine pH (5.0-8.0) Ur Specific [place] (1.001-1.035) Urine Protein (Negative) Urine Glucose (UA) (Negative) Urine Ketones (Negative) Urine Blood (Negative) Urine Nitrite (Negative) Urine Bilirubin (Negative) Urine Urobilinogen (<2.0) mg/dL Ur Leukocyte Esterase (Negative) Influenza Type A (PCR) Not Detected (Not Detectd) Influenza Type B (PCR) Not Detected (Not Detectd) RSV (PCR) Not Detected (Not Detectd) SARS-CoV-2 (PCR) Not Detected (Not Detectd) Disposition Clinical Impression: Anemia Disposition: HOME SELF-CARE Condition: Good Instructions (If sedation given, give patient instructions): Iron Rich Diet (ED), Anemia (ED) Additional Instructions: Should follow-up with the primary medical care doctor to have repeat hemoglobins drawn. Patient should eat foods rich in iron and take an iron supplement. Is patient prescribed a controlled substance at d/c from ED?: No Referrals: Saritha Santiago MD [Primary Care Provider] - 1-2 days Time of Disposition: 16:36
[2024-09-02] MEDS: SODIUM CHLORIDE 0.9% 500 ML 500 ML IV STA (15:28)
[2024-09-02 15:37] LABS: ALT 21 U/L (4-34); AST 33 U/L (14-36); African American GFR (CKD) 72 (>60 ml/min/1.73 sqM); Albumin 4.2 g/dL (3.5-5.0); Alkaline Phosphatase 105 U/L (38-126); Anion Gap 7 mmol/L; Blood Urea Nitrogen 11 mg/dL (7-17); Carbon Dioxide 27 mmol/L (22-30); Chloride 99 mmol/L (98-107); Glucose 96 mg/dL (74-99); Magnesium 1.8 mg/dL (1.6-2.3); Non-African American GFR(CKD) 63 (>60 ml/min/1.73 sqM); Sodium 133 mmol/L (137-145); Total Bilirubin 0.5 mg/dL (0.2-1.3)
[2024-09-02 15:41] LABS: Basophils % (A) 0 %; Eosinophils # (A) 0.3 k/uL (0-0.7); Eosinophils % (A) 3 %; HCT 29.1 % (34.0-46.0); HGB 9.5 gm/dL (11.4-16.0); Hypochromasia Slight; Lymphocytes # (A) 0.9 k/uL (1.0-4.8); Lymphocytes % (A) 10 %; MCH 29.7 pg (25.0-35.0); MCHC 32.6 g/dL (31.0-37.0); MCV 91.2 fL (80.0-100.0); Mean Platelet Volume 6.3; Monocytes # (A) 0.3 k/uL (0-1.0); Monocytes % (A) 4 %; Neutrophils # (A) 7.3 k/uL (1.3-7.7); Neutrophils % (A) 80 %; Platelet Count 345 k/uL (150-450); Poikilocytosis Slight; RBC 3.19 m/uL (3.80-5.40); RDW 14.1 % (11.5-15.5); WBC 9.1 k/uL (3.8-10.6)
[2024-09-02 15:42] LABS: INR 0.9 (<1.2); Prothrombin Time 9.7 sec (10.0-12.5)
--- NOTE | 2024-09-02 15:55 | XR ---
EXAMINATION TYPE: XR chest 2V DATE OF EXAM: 09/02/2024 3:46 PM CLINICAL INDICATION: Female, 84 years old with history of Weakness; [facility] COMPARISON: Chest radiographs from 11/24/2023 TECHNIQUE: XR chest 2V Frontal view of the chest. FINDINGS: Lungs/Pleura: Elevated right diaphragm similar prior. COPD with increased lucency in the lung apices with scattered streaky atelectasis in the right midlung. There is no evidence of pleural effusion, fo ivet consolidation, or pneumothorax. Pulmonary vascularity: Unremarkable. Heart/mediastinum: Cardiomediastinal silhouette is unremarkable. Post aortic valve repair changes. Musculoskeletal: No acute osseous pathology. Other findings: None Lines/Tubes: [id number] projecting over the right hemithorax with distal tip at the cavoatrial junction. IMPRESSION: 1. No acute cardiopulmonary disease/process. 2. Chronic interstitial changes. [facility], , 09/02/2024 3:53 PM
[2024-09-02 16:06] LABS: Appearance,Urine Clear (Clear); Bilirubin,Urine Negative (Negative); Blood,Urine Negative (Negative); Color,Urine Colorless; Glucose,Urine (UA) Negative (Negative); Ketones,Urine Negative (Negative); Leukocyte Esterase,Urine Negative (Negative); Nitrite,Urine Negative (Negative); Protein,Urine Negative (Negative); Specific Gravity,Urine 1.004 (1.001-1.035); Urobilinogen,Urine <2.0 mg/dL (<2.0)
[2024-09-02 16:09] VITALS: RESP 24
[2024-09-02 16:52] VITALS: BP 146/68; PULSE 95; TEMP 98.1
== END 2024-09-02 17:31 | disposition home or self-care (01) ==
LOC: EC 14:22
CPT/HCPCS: 36415; 71046; 80053; 81003; 83605; 83735; 84484; 85025; 85379; 85610; 85730; 87636; 93005; 96360; 99285